=== PATIENT | male | born 1950 | race Caucasian/White ===

== ENCOUNTER 2017-06-26 12:54 | Observation (INO) | payer MEDICARE ==
[~2017-06-26] VITALS: Ht 165.1 cm; Wt 81.0 kg
[~2017-06-26 12:54] MED LIST: AMLO10 PO; ATEN-102 PO; CALTCHW4 PO; CARB6.5S5 EACH EAR; CHLO50TA PO; CYAN1000P IM; CYCL1PAK PO; D31000TA PO; DOCU50SY2 PO; FERR140T PO; GABA300C3 PO; MOBI7.5T PO; MS C30TA5 PO; OXYC5 PO; POTA-243 PO; PRED5TAB; PROC1TAB8 PO; ZOLP5TAB3 PO
[2017-06-26 13:02] VITALS: BP 173/89; PULSE 89; RESP 18; TEMP 98.5; O2SAT 96
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
[2017-06-26] MEDS ORDERED: SODIUM CHLORIDE 0.9% FLUSH 10 ML FLUSH IV FLUSH PRN ×2 (14:15→17:30)
[2017-06-26] MEDS ORDERED: ONDANSETRON HCL 4 MG/2 ML VIAL IVP ONE (14:15)
[2017-06-26] MEDS ORDERED: SODIUM CHLORIDE 0.9% FLUSH 5 ML FLUSH IV FLUSH PRN (14:15)
[2017-06-26] MEDS ORDERED: SODIUM CHLORID 0.9% 500 ML INJ 500 ML IV ONE (14:15)
[2017-06-26 14:23] LABS: AUTOMATED NEUTROPHIL # 8.7 TH/MM3 (1.8-7.7); BASOPHIL % 0.2 % (0.0-2.0); HEMO FLAGS DIFF FINAL; LYMPH % 7.6 % (9.0-44.0); LYMPHOCYTE # 0.7 TH/MM3 (1.0-4.8); MEAN CELL VOLUME 89.6 FL (80.0-100.0); MEAN CORPUSCULAR HGB CONC 34.6 % (32.0-36.0); MONO % 3.6 % (0.0-8.0); NEUT % 88.6 % (16.0-70.0); PLATELET COUNT 255 TH/MM3 (150-450); RED BLOOD COUNT 5.35 MIL/MM3 (4.50-5.90); RED CELL DISTRIBUTION WIDTH 15.1 % (11.6-17.2); WHITE BLOOD COUNT 9.8 TH/MM3 (4.0-11.0)
[2017-06-26 14:32] LABS: INTERNATIONAL NORMALIZED RATIO 1.2 RATIO; PROTHROMBIN TIME - PATIENT 13.9 SEC (9.8-11.6)
[2017-06-26 14:48] LABS: ANION GAP 7 MEQ/L (5-15); AST (GOT) 23 U/L (15-37); BICARBONATE 29.8 MEQ/L (21.0-32.0); BLOOD UREA NITROGEN 17 MG/DL (7-18); CHLORIDE 99 MEQ/L (98-107); GLOMERULAR FILTRATION RATE 52 ML/MIN (>89); POTASSIUM 3.6 MEQ/L (3.5-5.1); SODIUM (NA) 136 MEQ/L (136-145)
[2017-06-26 14:49] LABS: ALT (GPT) 31 U/L (12-78)
[2017-06-26 14:53] LABS: ALKALINE PHOSPHATASE 78 U/L (45-117); TOTAL BILIRUBIN ADULT 0.5 MG/DL (0.2-1.0)
[2017-06-26 14:54] LABS: CREATINE KINASE 81 U/L (39-308)
--- NOTE | 2017-06-26 14:54 | RADRPT ---
EXAM DATE/TIME: 06/26/2017 14:35 [facility] COMPARISON: No previous studies available for comparison. INDICATIONS : Nausea. Recent upper respiratory infection. MEDICAL HISTORY : Carcinoma, bone. Carcinoma, prostatic. SURGICAL HISTORY : Port placement. ENCOUNTER: Initial ACUITY: 1 day PAIN SCORE: 0/10 LOCATION: Bilateral chest FINDINGS: Single AP view of the chest. Right-sided IJ [id number] in place. Low lung volumes. Moderate cardia c silhouette enlargement. Minimal linear opacity at the lung bases indicating subsegmental atelectasi s or scarring. Mild blunting of costophrenic sulci. CONCLUSION: 1. Low lung volumes. 2. Mild by basilar atelectasis. 3. Enlarged cardiac silhouette. 4. Possible small pleural effusions. Salvador Herman MD on June 26, 2017 at 14:51 Board Certified Radiologist. This report was verified electronically.
[2017-06-26 15:38] VITALS: BP 159/59; PULSE 80; RESP 18; O2SAT 93
[2017-06-26] MEDS ORDERED: IOHEXOL 350 MG/ML 10 ML VIAL (for RAD DIAG) IVCONTRAST ONE (15:46)
--- NOTE | 2017-06-26 15:58 | RADRPT ---
EXAM DATE/TIME: 06/26/2017 15:16 [facility] COMPARISON: CT ABDOMEN & PELVIS W CONTRAST, January 30, 2012, 15:03. INDICATIONS : Abdomen pain. IV CONTRAST: 100 cc Omnipaque 350 (iohexol) IV ORAL CONTRAST: No oral contrast ingested. RADIATION DOSE: 6.87 CTDIvol (mGy) MEDICAL HISTORY : Carcinoma, prostate. Cardiovascular disease SURGICAL HISTORY : None. ENCOUNTER: Initial ACUITY: 1 day PAIN SCALE: 8/10 LOCATION: Bilateral abdomen. TECHNIQUE: Volumetric scanning of the abdomen and pelvis was performed. Using automated exposure control and ad justment of the mA and/or kV according to patient size, radiation dose was kept as low as reasonably achievable to obtain optimal diagnostic quality images. DICOM format image data is available electro nically for review and comparison. FINDINGS: There is bandlike atelectasis within the right middle lobe and right lower lobe. There is hepatic janak atosis. There are cysts in the liver which are stable. The splenic cyst is also suspected anteriorly, measuring 1.4 cm. There are bilateral renal cysts identified. This includes an exophytic cyst at the lower pole of the right kidney, simple in appearance a 3.5 cm on the left there are several cysts no francisco including a bilobed cyst with thin internal dividing septation measuring 10.1 x 6.5 cm. Urinary b ladder is unremarkable her prostatic calcifications are noted. There is diverticulosis without divert iculitis. The appendix is normal. Of concern are decompressed small bowel loops distally, with a lopez sition point seen in the midabdomen, and multiple dilated loops of small bowel with air-fluid levels are noted measuring up to 4.9 cm on axial image of bowel obstruction. Review of bone windows demonstr ates degenerative changes of the spine and sclerotic lesions of the bilateral iliac bones, sclerotic lesion of the right and left acetabulum, sacrum, and multiple lumbar vertebral and thoracic vertebral sclerotic lesions. There is diffuse thickening of the left adrenal gland is stable. Right adrenal gl and is normal. CONCLUSION: 1. Abnormal appearance of the small bowel which is dilated mid to proximal portions with distal deco mpression and transition point suspected in the mid abdomen. This is concerning for at least partial small bowel obstruction at this time. 2. Bilateral renal cysts. 3. Hepatic cysts. 4. Diverticulosis. 5. Atelectasis at the right lung base. 6. Diffuse sclerotic bone lesions characteristic of metastatic disease. Ashtuosh Espino MD on June 26, 2017 at 15:49 Board Certified Radiologist. This report was verified electronically.
[2017-06-26] MEDS ORDERED: WARF-23 PO (16:17)
[2017-06-26] MEDS ORDERED: DOCU100C15 PO (16:17)
[2017-06-26] MEDS ORDERED: ENZA40CA PO (16:17)
[2017-06-26] MEDS ORDERED: AMLO10TA2 PO (16:17)
[2017-06-26] MEDS ORDERED: HYDR-3801 PO (16:17)
[2017-06-26] MEDS ORDERED: VITA100064 PO (16:17)
[2017-06-26] MEDS ORDERED: GUAI600T11 PO (16:17)
[2017-06-26] MEDS ORDERED: ATEN100T7 PO (16:17)
[2017-06-26] MEDS ORDERED: FERR325T18 PO (16:17)
[2017-06-26] MEDS ORDERED: WARF-21 PO (16:17)
[2017-06-26] MEDS ORDERED: CALC600C3 PO (16:17)
[2017-06-26] MEDS ORDERED: POTA-163 PO (16:17)
[2017-06-26] MEDS ORDERED: SENNOSIDES 8.6 MG TAB PO PRN (17:30)
[2017-06-26] MEDS ORDERED: NALOXONE HCL 0.4 MG/ML AMP IV PUSH PRN (17:30)
[2017-06-26] MEDS ORDERED: MAGNESIUM HYDROXIDE SUSP 30 ML CUP PO PRN (17:30)
[2017-06-26] MEDS ORDERED: BISACODYL 10 MG SUPP RECTAL PRN (17:30)
[2017-06-26] MEDS ORDERED: LACTULOSE SYRUP 20 GM/30 ML CUP PO PRN (17:30)
[2017-06-26] MEDS ORDERED: ACETAMINOPHEN 325 MG TAB PO PRN (17:30)
[2017-06-26] MEDS ORDERED: ONDANSETRON HCL 4 MG/2 ML VIAL IVP PRN (17:30)
[2017-06-26] MEDS ORDERED: WARFARIN SOD 7.5 MG TAB PO SCH (17:46)
--- NOTE | 2017-06-26 17:52 | HHI.HP ---
[facility] Admission Diagnosis Diagnoses: Travel History International Travel<30 Days: No Contact w/Intl Traveler <30 Da: No Traveled to Known Affected Are: No History of Present Illness 67-year-old male with a past medical history significant for prostate cancer with bony metastasis, hypertension and A. fib currently on Coumadin presents to the emergency department complaining of nausea and vomiting since 10 AM. The patient states he had approximately 6 episodes of NBNB emesis and a "large" amount of diarrhea. He denies fever/chills. The patient also reports he recently received antibiotics from his primary care physician for an upper respiratory infection. He is not sure what type of antibiotic he is taking but that he "only received 5 pills." Lab work significant for creatinine of 1.36, no recent baseline for comparison. INR of 1.2. Patient reports he takes his warfarin daily. CT of the abdomen/pelvis shows a dilated small bowel with distal compression and a transition point concerning for partial small bowel obstruction. Review of Systems Denies fever or chills Denies blurry vision, otorrhea, rhinorrhea Denies sore throat and cough No chest pain, palpitations, shortness of breath Epigastric tenderness Positive emesis/diarrhea Denies muscle pain/weakness No rashes Past Family Social History Past Medical History Prostate cancer with metastasis to the bone, patient reports he did 11 months of chemotherapy which did not work and he is now on a daily medication Hypertension Atrial fibrillation Past Surgical History Cholecystectomy Reported Medications Reported Meds & Active Scripts Active Reported Warfarin 7.5 Mg Tab 7.5 Mg PO TTHSATSUN Warfarin 5 Mg Tab 5 Mg PO MWF Hydralazine (Hydralazine HCl) 100 Mg Tab 25 Mg PO Q8HR Take with meals Xtandi (Enzalutamide) 40 Mg Cap 120 Mg PO DAILY Calcium/Vitamin D (Calcium Carbonate-Cholecalciferol) 600-400 Mg-Unit Cap 1 Cap PO DAILY Mucus Relief ER (Guaifenesin) 600 Mg Tab 400 Mg PO TID PRN Amlodipine (Amlodipine Besylate) 10 Mg Tab 10 Mg PO DAILY Atenolol-Chlorthalidone 100-25 Mg Tab 1 Tab PO DAILY Docusate Sodium 100 Mg Cap 200 Mg PO HS PRN Potassium Chloride ER (Potassium Chloride) 20 Meq Tab 20 Meq PO BID Ferrous Sulfate 325 Mg (65 Mg Iron) Tablet 325 Mg PO BIDPC Vitamin D3 (Cholecalciferol) 1,000 Unit Tab 1,000 Units PO DAILY Allergies: Coded Allergies: No Known Allergies (Verified Allergy, Unknown, 06/26/17) Family History Father of an DC. Mother from CVA. Social History Quit smoking 2 weeks ago. Endorses 5 cigarettes per day 40 years. Denies alcohol or illicit drugs. Physical Exam Vital Signs Vital Signs Date Time Temp Pulse Resp B/P (MAP) Pulse Ox O2 Delivery O2 Flow Rate FiO2 06/26/17 15:38 80 18 159/59 (92) 93 Room Air 06/26/17 13:02 98.5 89 18 173/89 (117) 96 Physical Exam GENERAL: Elderly male sitting up in bed SKIN: No rashes, ecchymoses or lesions. Cool and dry. HEAD: Atraumatic. Normocephalic. No temporal or scalp tenderness. EYES: Pupils equal round and reactive. Extraocular motions intact. No scleral icterus. No injection or drainage. ENT: Nose without bleeding, purulent drainage or septal hematoma. Throat without erythema, tonsillar hypertrophy or exudate. Uvula midline. Airway patent. NECK: Trachea midline. No JVD or lymphadenopathy. Supple, nontender, no meningeal signs. CARDIOVASCULAR: Regular rate and rhythm without murmurs, gallops, or rubs. RESPIRATORY: Clear to auscultation. Breath sounds equal bilaterally. No wheezes , rales, or rhonchi. GASTROINTESTINAL: Epigastric region diffusely tender to palpation. Protuberant and distended. No palpable masses or hepatosplenomegaly. MUSCULOSKELETAL: Trace edema to the midshin. No joint tenderness, effusion, or edema noted. No calf tenderness. Negative Homans sign bilaterally. NEUROLOGICAL: Awake and alert. Cranial nerves II through XII intact. Motor and sensory grossly within normal limits. Normal speech. Laboratory Laboratory Tests Test 06/26/17 14:10 White Blood Count 9.8 Red Blood Count 5.35 Hemoglobin 16.6 Hematocrit 48.0 Mean Corpuscular Volume 89.6 Mean Corpuscular Hemoglobin 31.0 Mean Corpuscular Hemoglobin Concent 34.6 Red Cell Distribution Width 15.1 Platelet Count 255 Mean Platelet Volume 8.8 Neutrophils (%) (Auto) 88.6 Lymphocytes (%) (Auto) 7.6 Monocytes (%) (Auto) 3.6 Eosinophils (%) (Auto) 0.0 Basophils (%) (Auto) 0.2 Neutrophils # (Auto) 8.7 Lymphocytes # (Auto) 0.7 Monocytes # (Auto) 0.4 Eosinophils # (Auto) 0.0 Basophils # (Auto) 0.0 CBC Comment DIFF FINAL Differential Comment Prothrombin Time 13.9 Prothromb Time International Ratio 1.2 Blood Urea Nitrogen 17 Creatinine 1.36 Random Glucose 153 Total Protein 7.8 Albumin 3.4 Calcium Level 9.6 Alkaline Phosphatase 78 Aspartate Amino Transf (AST/SGOT) 23 Alanine Aminotransferase (ALT/SGPT) 31 Total Bilirubin 0.5 Sodium Level 136 Potassium Level 3.6 Chloride Level 99 Carbon Dioxide Level 29.8 Anion Gap 7 Estimat Glomerular Filtration Rate 52 Total Creatine Kinase 81 Troponin I 0.02 Lipase 82 Result Diagram: 06/26/17 1410 06/26/17 1410 Caprini VTE Risk Assessment Caprini VTE Risk Assessment: Mod/High Risk (score >= 2) Caprini Risk Assessment Model Point Value = 1 Point Value = 2 Point Value = 3 Point Value = 5 Age 41-60 Minor surgery BMI > 25 kg/m2 Swollen legs Varicose veins or History of unexplained or recurrent spontaneous Oral contraceptives or hormone replacement Sepsis (< 1 month) Serious lung disease, including pneumonia (< 1 month) Abnormal pulmonary function Acute myocardial infarction Congestive heart failure (< 1 month) History of inflammatory bowel disease Medical patient at bed rest Age 61-74 Arthroscopic surgery Major open surgery (> 45 min) Laparoscopic surgery (> 45 min) Malignancy Confined to bed (> 72 hours) Immobilizing plaster cast Central venous access Age >= 75 History of VTE Family history of VTE Factor V Leiden Prothrombin [id number] Lupus anticoagulant Anticardiolipin antibodies Elevated serum homocysteine Heparin-induced thrombocytopenia Other congenital or acquired thrombophilia Stroke (< 1 month) Elective arthroplasty Hip, pelvis, or leg fracture Acute spinal cord injury (< 1 month) Prophylaxis Regimen Total Risk Factor Score Risk Level Prophylaxis Regimen 0-1 Low Early ambulation 2 Moderate Order ONE of the following: *Sequential Compression Device (SCD) *Heparin 5000 units SQ BID 3-4 Higher Order ONE of the following medications: *Heparin 5000 units SQ TID *Enoxaparin/Lovenox 40 mg SQ daily (WT < 150 kg, CrCl > 30 mL/min) *Enoxaparin/Lovenox 30 mg SQ daily (WT < 150 kg, CrCl > 10-29 mL/min) *Enoxaparin/Lovenox 30 mg SQ BID (WT < 150 kg, CrCl > 30 mL/min) AND/OR *Sequential Compression Device (SCD) 5 or more Highest Order ONE of the following medications: *Heparin 5000 units SQ TID (Preferred with Epidurals) *Enoxaparin/Lovenox 40 mg SQ daily (WT < 150 kg, CrCl > 30 mL/min) *Enoxaparin/Lovenox 30 mg SQ daily (WT < 150 kg, CrCl > 10-29 mL/min) *Enoxaparin/Lovenox 30 mg SQ BID (WT < 150 kg, CrCl > 30 mL/min) AND *Sequential Compression Device (SCD) Assessment and Plan Assessment and Plan 67-year-old male with a past medical history significant for prostate cancer with bony metastasis, hypertension and atrial fibrillation presents to the emergency department with several episodes of nonbloody nonbilious emesis and diarrhea. CT of the abdomen and pelvis concerning for partial small bowel obstruction. 1. Small bowel obstruction Medical management Nothing by mouth except meds Emesis relieved with zofran If emesis persists, place NG tube IV fluid hydration 2. RICARDA Creatinine 1.36, no recent baseline for comparison IV fluids Trend BMP 3. Atrial fibrillation with subtherapeutic INR Per patient, he takes his Coumadin daily Continue Coumadin dosing, consult pharmacy Monitor [facility] 4. Hypertension Continue home amlodipine, hydralazine, tenoretic 5. Prostate cancer Continue daily Xtandi FEN NPO NS at 100 cc/hr Monitor electrolytes Heparin Lexie Barcenas MD Jun 26, 2017 17:52
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
[2017-06-26] MEDS: SODIUM CHLOR 0.9% 1000 ML INJ 1,000 ML IV SCH (18:53)
[2017-06-26] MEDS: SODIUM CHLORIDE 0.9% FLUSH 10 ML FLUSH IV FLUSH SCH (21:00)
[2017-06-26] MEDS ORDERED: hydrALAZINE HCL 100 MG TAB PO SCH (22:00)
[2017-06-26] MEDS: HEPARIN SODIUM - SQ 10,000 UNITS/ML VIAL SQ SCH (22:55)
[2017-06-26] MEDS: DOCUSATE SODIUM 50 MG/SENNA 8.6 MG TAB PO SCH (22:55)
[2017-06-26] MEDS: hydrALAZINE HCL 25 MG TAB PO SCH (22:55)
[2017-06-27 00:38] VITALS: BP 140/67; PULSE 75; RESP 18; TEMP 98; O2SAT 95
[2017-06-27] MEDS: SODIUM CHLOR 0.9% 1000 ML INJ 1,000 ML IV SCH (04:33)
[2017-06-27 04:50] VITALS: BP 133/60; PULSE 55; RESP 18; TEMP 98; O2SAT 90
[2017-06-27 05:58] LABS: AUTOMATED NEUTROPHIL # 5.9 TH/MM3 (1.8-7.7); BASOPHIL % 0.4 % (0.0-2.0); EOSINOPHIL # 0.2 TH/MM3 (0-0.4); HEMATOCRIT 43.8 % (39.0-51.0); HEMO FLAGS DIFF FINAL; LYMPH % 16.9 % (9.0-44.0); LYMPHOCYTE # 1.4 TH/MM3 (1.0-4.8); MEAN CELL VOLUME 89.9 FL (80.0-100.0); MEAN CORPUSCULAR HEMOGLOBIN 30.6 PG (27.0-34.0); MONO % 9.8 % (0.0-8.0); NEUT % 70.9 % (16.0-70.0); PLATELET COUNT 231 TH/MM3 (150-450); RED BLOOD COUNT 4.87 MIL/MM3 (4.50-5.90); RED CELL DISTRIBUTION WIDTH 15.2 % (11.6-17.2); WHITE BLOOD COUNT 8.4 TH/MM3 (4.0-11.0)
[2017-06-27] MEDS ORDERED: hydrALAZINE HCL 25 MG TAB PO SCH (06:00)
[2017-06-27] MEDS: HEPARIN SODIUM - SQ 10,000 UNITS/ML VIAL SQ SCH ×3 (06:16→20:56)
[2017-06-27] MEDS: hydrALAZINE HCL 25 MG TAB PO SCH ×3 (06:16→20:56)
[2017-06-27 06:21] LABS: INTERNATIONAL NORMALIZED RATIO 1.1 RATIO; PROTHROMBIN TIME - PATIENT 12.4 SEC (9.8-11.6)
[2017-06-27 06:25] LABS: BICARBONATE 28.4 MEQ/L (21.0-32.0)
[2017-06-27] MEDS ORDERED: DEXTROSE 50% IN WATER 50 ML VIAL(D50) ONE (07:43)
[2017-06-27] MEDS ORDERED: POTASSIUM BICARBONATE 25 MEQ EFFERVESCENT TAB PO ONE (08:00)
[2017-06-27 08:07] VITALS: BP 142/75; PULSE 82; RESP 21; TEMP 97.6; O2SAT 96
[2017-06-27] MEDS: DOCUSATE SODIUM 50 MG/SENNA 8.6 MG TAB PO SCH ×3 (08:36→20:55)
[2017-06-27] MEDS: SODIUM CHLORIDE 0.9% FLUSH 10 ML FLUSH IV FLUSH SCH ×2 (08:36→20:55)
[2017-06-27] MEDS: NS + KCL 20 MEQ INJ 1,000 ML IV SCH ×2 (08:42→17:49)
[2017-06-27 08:53] LABS: MAGNESIUM 2.3 MG/DL (1.5-2.5)
[2017-06-27] MEDS ORDERED: ATENOLOL PO SCH (09:00)
[2017-06-27] MEDS ORDERED: CHLORTHALIDONE PO SCH (09:00)
[2017-06-27] MEDS ORDERED: ENZALUTAMIDE 40 MG PO SCH (09:00)
--- NOTE | 2017-06-27 14:43 | HHI.PR ---
Subjective Remarks Patient feeling pressure in his abdomen No nausea or vomiting Still no gas or bowel movement Objective Vitals Vital Signs Date Time Temp Pulse Resp B/P (MAP) Pulse Ox O2 Delivery O2 Flow Rate FiO2 06/27/17 08:07 97.6 82 21 142/75 (97) 96 06/27/17 04:50 98.0 55 18 133/60 (84) 90 06/27/17 00:38 98.0 75 18 140/67 (91) 95 06/26/17 21:34 06/26/17 15:38 80 18 159/59 (92) 93 Room Air I/O 06/26/17 06/26/17 06/26/17 06/27/17 06/27/17 06/27/17 07:00 15:00 23:00 07:00 15:00 23:00 Intake Total 500 ml Balance 500 ml Intake IV Total 500 ml Result Diagram: 06/27/17 0401 06/27/17 0401 Objective Remarks GENERAL: This is a well-nourished, well-developed patient, in no apparent distress. SKIN: No rashes, warm and dry HEAD: Atraumatic. Normocephalic. EYES: Pupils equal round and reactive. Extraocular motions intact. No scleral icterus. ENT: Nose without bleeding, or drainage, Airway patent. NECK: Trachea midline. Supple CARDIOVASCULAR: Regular rate and rhythm without murmurs, gallops, or rubs. RESPIRATORY: Fair air entry bilaterally. No wheezes, rales, or rhonchi. GASTROINTESTINAL: Abdomen soft, tender to deep palpation, nondistended. Positive bowel sounds MUSCULOSKELETAL: Extremities without clubbing, cyanosis, or edema. Pedal pulses appreciated NEUROLOGICAL: Awake and alert. Moves all extremity. Normal speech.no focal neurological deficit A/P Assessment and Plan 06/27: Discussed with patient and his , they requested to drink some cough but I advised to continue rest until clinical signs of GI motility improvement A/P: 67-year-old male with a past medical history significant for prostate cancer with bony metastasis, hypertension and atrial fibrillation presents to the emergency department with several episodes of nonbloody nonbilious emesis and diarrhea. CT of the abdomen and pelvis concerning for partial small bowel obstruction. 1. Small bowel obstruction Medical management Nothing by mouth except meds Emesis relieved with zofran If emesis persists, place NG tube IV fluid hydration 2. RICARDA Creatinine 1.36, no recent baseline for comparison IV fluids Monitor BMP 3. Atrial fibrillation with subtherapeutic INR Per patient, he takes his Coumadin daily Continue Coumadin dosing, monitor INR 4. Hypertension Continue home amlodipine, hydralazine, tenoretic 5. Prostate cancer Continue daily Ru Kerns MD Jun 27, 2017 14:43
[2017-06-27] MEDS ORDERED: WARFARIN SOD 5 MG TAB PO SCH (16:00)
[2017-06-27] MEDS ORDERED: WARFARIN SOD 2.5 MG TAB PO ONE (16:00)
[2017-06-27] MEDS ORDERED: POTASSIUM CHLORIDE INJ 20 MEQ in SODIUM CHLOR 0.9% 1000 ML INJ 1,000 ML IV SCH (17:30)
--- NOTE | 2017-06-27 18:36 | EKG ---
Date Performed: 06/26/2017 Time Performed: 14:12:02 PTAGE: 67 years EKG: Sinus rhythm Poor R wave progression LEFT ANTERIOR FASCICULAR BLOCK VOLTAGE CRITERIA FOR LVH MINIMAL ST DEPRESSI ON ABNORMAL ECG PREVIOUS TRACING : 02/25/2015 14.53 DOCTOR: Storm Agosto Interpretating Date/Time 06/27/2017 18:35:36
[2017-06-27 19:26] VITALS: BP 186/89; PULSE 67; RESP 18; TEMP 98.1; O2SAT 94
[2017-06-27 23:42] VITALS: BP 169/75; PULSE 66; RESP 18; TEMP 97.6; O2SAT 94
[2017-06-28] MEDS: NS + KCL 20 MEQ INJ 1,000 ML IV SCH (03:46)
[2017-06-28 04:08] VITALS: BP 169/76; PULSE 64; RESP 18; TEMP 97.5; O2SAT 95
[2017-06-28 05:25] LABS: INTERNATIONAL NORMALIZED RATIO 1.4 RATIO; PROTHROMBIN TIME - PATIENT 15.4 SEC (9.8-11.6)
[2017-06-28] MEDS: hydrALAZINE HCL 25 MG TAB PO SCH (05:53)
[2017-06-28] MEDS: HEPARIN SODIUM - SQ 10,000 UNITS/ML VIAL SQ SCH (05:53)
[2017-06-28 07:54] VITALS: BP 173/79; PULSE 73; RESP 18; TEMP 98; O2SAT 94
[2017-06-28] MEDS: SODIUM CHLORIDE 0.9% FLUSH 10 ML FLUSH IV FLUSH SCH (07:57)
[2017-06-28] MEDS: DOCUSATE SODIUM 50 MG/SENNA 8.6 MG TAB PO SCH (07:57)
[2017-06-28 12:09] LABS: BICARBONATE 26.1 MEQ/L (21.0-32.0); POTASSIUM 3.6 MEQ/L (3.5-5.1)
[2017-06-28] MEDS ORDERED: Lactulose Liq PO (12:22)
[2017-06-28] MEDS ORDERED: BISA10R RECTAL (12:22)
[2017-06-28] MEDS ORDERED: DOCU100C15 PO (12:22)
--- NOTE | 2017-06-28 13:48 | HHI.PR ---
Subjective Remarks since earlier today he stated he had 3 bowel movements doing well no abdominal pain nausea or vomiting Objective Vitals Vital Signs Date Time Temp Pulse Resp B/P (MAP) Pulse Ox O2 Delivery O2 Flow Rate FiO2 06/28/17 07:54 98.0 73 18 173/79 (110) 94 06/28/17 04:08 97.5 64 18 169/76 (107) 95 06/27/17 23:42 97.6 66 18 169/75 (106) 94 06/27/17 19:26 98.1 67 18 186/89 (121) 94 Result Diagram: 06/27/17 0401 06/28/17 1106 Objective Remarks GENERAL: This is a well-nourished, well-developed patient, in no apparent distress. SKIN: No rashes, warm and dry HEAD: Atraumatic. Normocephalic. EYES: Pupils equal round and reactive. Extraocular motions intact. No scleral icterus. ENT: Nose without bleeding, or drainage, Airway patent. NECK: Trachea midline. Supple CARDIOVASCULAR: Regular rate and rhythm without murmurs, gallops, or rubs. RESPIRATORY: Fair air entry bilaterally. No wheezes, rales, or rhonchi. GASTROINTESTINAL: Abdomen soft, nontender to palpation, nondistended. Positive bowel sounds MUSCULOSKELETAL: Extremities without clubbing, cyanosis, or edema. Pedal pulses appreciated NEUROLOGICAL: Awake and alert. Moves all extremity. Normal speech.no focal neurological deficit A/P Assessment and Plan 06/27: Discussed with patient and his , they requested to drink some cough but I advised to continue rest until clinical signs of GI motility improvement 06/28: Patient had 3 bowel movements since yesterday no abdominal pain nausea or vomiting, he's ready to be discharged A/P: 67-year-old male with a past medical history significant for prostate cancer with bony metastasis, hypertension and atrial fibrillation presents to the emergency department with several episodes of nonbloody nonbilious emesis and diarrhea. CT of the abdomen and pelvis concerning for partial small bowel obstruction. 1. Small bowel obstruction Medical management Nothing by mouth except meds Emesis relieved with zofran If emesis persists, place NG tube IV fluid hydration 2. RICARDA Creatinine 1.36, no recent baseline for comparison IV fluids Monitor BMP 3. Atrial fibrillation with subtherapeutic INR Per patient, he takes his Coumadin daily Continue Coumadin dosing, monitor INR 4. Hypertension Continue home amlodipine, hydralazine, tenoretic 5. Prostate cancer Continue daily Xtandi Discharge Planning Discharge patient to home Condition on discharge: Improved Healthy heart Diet as tolerated Ad Marcella activity Rx written: Dulcolax suppository Follow-up with primary care physician in one week Ru Gayle MD Jun 28, 2017 13:48
[2017-06-28] MEDS ORDERED: hydrALAZINE HCL 50 MG TAB PO SCH (14:00)
== END 2017-06-28 13:08 | disposition home or self-care (01) ==
LOC: NEPE 12:54 → INTOOBSV 19:14 → NEDA 19:14 → NEPFCDU 20:41
PROVIDERS: ADMIT Hospitalist; ATTEND Hospitalist
DX: K56.600 Partial intestinal obstruction, unspecified as to cause (principal); N17.9 Acute kidney failure, unspecified; R79.1 Abnormal coagulation profile; I48.91 Unspecified atrial fibrillation; I10 Essential (primary) hypertension; C61 Malignant neoplasm of prostate; C79.51 Secondary malignant neoplasm of bone; R94.31 Abnormal electrocardiogram [ECG] [EKG]; R11.2 Nausea with vomiting, unspecified; K76.0 Fatty (change of) liver, not elsewhere classified; K57.90 Diverticulosis of intestine, part unspecified, without perforation or abscess without bleeding; N28.1 Cyst of kidney, acquired; K76.89 Other specified diseases of liver; F17.210 Nicotine dependence, cigarettes, uncomplicated; Z79.01 Long term (current) use of anticoagulants; Z79.899 Other long term (current) drug therapy; Z92.21 Personal history of antineoplastic chemotherapy
CPT/HCPCS: 71010; 74177; 80048; 80053; 82550; 82948; 83690; 83735; 84484; 85025; 85610; 93005; 96361; 96365; 96366; 96372; 96375; 99285; G0378; J1644; J2405; J3480; J7030; J7040; Q9967

== ENCOUNTER 2017-10-30 12:05 | Emergency (ER) | payer OTHER, MEDICARE ==
[~2017-10-30] VITALS: Ht 165.1 cm; Wt 78.0 kg
[~2017-10-30 12:05] MED LIST changes: -AMLO10 PO; +AMLO10TA2 PO; -ATEN-102 PO; +ATEN100T7 PO; +BISA10R RECTAL; +CALC600C3 PO; -CALTCHW4 PO; -CARB6.5S5 EACH EAR; -CHLO50TA PO; -CYAN1000P IM; -CYCL1PAK PO; -D31000TA PO; +DOCU100C15 PO; -DOCU50SY2 PO; +ENZA40CA PO; -FERR140T PO; +FERR325T18 PO; -GABA300C3 PO; +GUAI600T11 PO; +HYDR-3801 PO; +Lactulose Liq PO; -MOBI7.5T PO; -MS C30TA5 PO; -OXYC5 PO; +POTA-163 PO; -POTA-243 PO; -PRED5TAB; -PROC1TAB8 PO; +VITA100064 PO; +WARF-21 PO; +WARF-23 PO; -ZOLP5TAB3 PO
[2017-10-30 12:14] VITALS: BP 134/61; PULSE 65; RESP 18; TEMP 97.9; O2SAT 96
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
--- NOTE | 2017-10-30 14:14 | RADRPT ---
EXAM DATE/TIME: 10/30/2017 13:57 [facility] COMPARISON: No previous studies available for comparison. INDICATIONS : Right side chest and rib pain. MEDICAL HISTORY : Carcinoma, prostatic. Carcinoma, bone. Cardiovascular disease. SURGICAL HISTORY : Infusaport. ENCOUNTER: Initial ACUITY: 1 day PAIN SCORE: 4/10 LOCATION: Right anterior ribs. FINDINGS: Multiple views of the right ribs were performed. There is no evidence of displaced fracture. There appears be an old healed fracture deformity at the right rib. No destructive lesions or areas of acut e periosteal thickening are seen. Expiratory view of the chest is negative for pneumothorax. The me diastinal structures are midline. There is a right-sided [id number] in place. Spurs are seen in th e thoracic spine. The heart size is enlarged. The lungs are clear. CONCLUSION: No acute rib fracture is seen. Manolo Woodruff MD on October 30, 2017 at 14:09 Board Certified Radiologist. This report was verified electronically.
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
== END 2017-10-30 16:06 | disposition home or self-care (01) ==
LOC: NEPD 12:05
DX: S20.211A Contusion of right front wall of thorax, initial encounter (principal); R51 Headache; I10 Essential (primary) hypertension; F17.210 Nicotine dependence, cigarettes, uncomplicated; V43.52XA Car driver injured in collision with other type car in traffic accident, initial encounter; Z79.899 Other long term (current) drug therapy
CPT/HCPCS: 70450; 71101; 99284

== ENCOUNTER 2018-01-05 10:34 | Inpatient (IN) | payer OTHER, MEDICARE ==
[2018-01-05] VITALS (12 sets, daily range): BP systolic 102–146; BP diastolic 57–93; PULSE 88–107; RESP 16–20; TEMP 97.6–98.7; O2SAT 95–99
[~2018-01-05] VITALS: Ht 165.1 cm; Wt 78.0 kg
[2018-01-05] MEDS ORDERED: PANTOPRAZOLE INJ 80 MG in SODIUM CHLORIDE 0.9% INJ 35 ML IV ONE (11:42)
[2018-01-05] MEDS ORDERED: PANTOPRAZOLE INJ 80 MG in SODIUM CHLORIDE 0.9% INJ 100 ML IV SCH (11:42)
[2018-01-05] MEDS ORDERED: MORPHINE SULFATE 2 MG/ML SYRINGE IV PUSH ONE ×2 (11:45→13:45)
[2018-01-05] MEDS ORDERED: SODIUM CHLORID 0.9% 500 ML INJ 500 ML IV ONE (11:45)
[2018-01-05] MEDS ORDERED: ONDANSETRON ODT 4 MG TAB PO ONE (11:45)
[2018-01-05] MEDS ORDERED: SODIUM CHLORIDE 0.9% FLUSH 10 ML FLUSH IVF PRN (11:45)
[2018-01-05] MEDS ORDERED: WARF-23 PO (11:46)
[2018-01-05] MEDS ORDERED: PRED5TAB PO (11:46)
[2018-01-05] MEDS ORDERED: DICL1GEL7 TOPICAL (11:46)
[2018-01-05] MEDS ORDERED: GABA300C5 PO (11:46)
[2018-01-05] MEDS ORDERED: REFR0.5D9 EACH EYE (11:46)
[2018-01-05] MEDS ORDERED: HYDR-3799 PO (11:46)
[2018-01-05] MEDS ORDERED: CYAN1000P IM (11:46)
[2018-01-05] MEDS ORDERED: ATEN50TA7 PO (11:46)
--- NOTE | 2018-01-05 11:53 | PD ---
HPI Chief Complaint: Dizziness Time Seen by Provider: 11:33 Travel History International Travel<30 days: No Contact w/Intl Traveler<30days: No Traveled to known affect area: No History of Present Illness HPI Patient comes to the emergency department complaining of dizziness, weakness, bloody stools, and right femur pain that began yesterday. Patient states that anytime he goes to stand up he becomes dizzy. Patient's reports that he fell causing the pain in his right leg. Describes pain as aching throughout his right thigh without radiation. Pain is worse with certain movement, standing, or palpation. Denies anything making it better. Patient reports some blood in stool since yesterday has had some vomiting as well that was nonbloody nonbilious. Denies any fevers, chest pain, shortness of breath, head injury, loss of consciousness, or headaches. Patient is on Coumadin well and has a history of prostate and bone cancer. Denies anything making symptoms better. PFSH Past Medical History Blood Disorders: No Heart Rhythm Problems: No Cancer: Yes (prostate and bone) Cardiovascular Problems: Yes Chemotherapy: Yes (had 13 months of chemo, ended months ago, going to get injections) Chest Pain: No Congestive Heart Failure: No Diabetes: No Endocrine: No Gastrointestinal Disorders: Yes GERD: No Genitourinary: No Hepatitis: No Hiatal Hernia: No Hypertension: Yes Immune Disorder: No Medical other: Yes (blood clots) Musculoskeletal: No Neurologic: No Psychiatric: No Respiratory: No Thyroid Disease: No Ulcer: Yes Past Surgical History Abdominal Surgery: Yes (SHRAPNEL REMOVAL) Cardiac Surgery: No Ear Surgery: No Endocrine Surgery: No Eye Surgery: No Genitourinary Surgery: No Gynecologic Surgery: No Oral Surgery: No Pacemaker: No Thoracic Surgery: No Other Surgery: Yes (NUMEROUS SURGERIES TO RIGHT ARM, LEFT ARM, AND RIGHT LEG, SHRAPNEL REMOVAL) Social History Alcohol Use: Yes (occasional) Tobacco Use: Yes (6 or less) Substance Use: No Allergies-Medications (Allergen,Severity, Reaction): Coded Allergies: No Known Allergies (Verified Allergy, Unknown, 01/05/18) Reported Meds & Prescriptions Reported Meds & Active Scripts Active Reported Refresh Plus Unit-Dose 0.5% Opth (Carboxymethylcellulose Sodium 0.5% Opth) 0.5% Drops 1 Drop EACH EYE BID PRN Cyanocobalamin Inj (Cyanocobalamin) 1,000 Mcg/Ml Inj 1,000 Mcg IM MONTHLY Gabapentin 300 Mg Cap 600 Mg PO BID Diclofenac Topical 1% Gel 1 Applic TOPICAL BID Prednisone 5 Mg Tab 5 Mg PO BID Warfarin 5 Mg Tab 7.5 Mg PO TUESDAY Take 1&1/2 tablets (7.5mg) daily on Mondays Hydralazine HCl 25 Mg Tablet 25 Mg PO Q8HR Atenolol-Chlorthalidone 50-25 (Atenolol/Chlorthalidone) 50 Mg-25 Mg Tablet 0.5 Tab PO BID Warfarin 5 Mg Tab 5 Mg PO SUTUWETHFRSA Take 1 tablet (5mg) daily on Tuesday,Tuesday,Tuesday,,Tuesday and Tuesday Xtandi (Enzalutamide) 40 Mg Cap 160 Mg PO DAILY Calcium/Vitamin D (Calcium Carbonate-Cholecalciferol) 600-400 Mg-Unit Cap 1 Cap PO DAILY Amlodipine (Amlodipine Besylate) 10 Mg Tab 10 Mg PO DAILY Potassium Chloride ER (Potassium Chloride) 20 Meq Tab 40 Meq PO BID Ferrous Sulfate 325 Mg (65 Mg Iron) Tablet 325 Mg PO BIDPC Vitamin D3 (Cholecalciferol) 1,000 Unit Tab 1,000 Units PO DAILY Review of Systems Except as stated in HPI: all other systems reviewed are Neg Physical Exam Narrative GENERAL: Well-developed, overly nourished, in no acute distress, and non-ill appearing. SKIN: Focused skin assessment warm and dry. HEAD: Atraumatic. Normocephalic. EYES: Pupils equal and round. EOMI. No scleral icterus. No injection or drainage. ENT: No nasal bleeding or discharge. Mucous membranes pink and moist. NECK: Trachea midline. Supple. No nuclear rigidity. CARDIOVASCULAR: Regular rate and rhythm. No murmur appreciated. RESPIRATORY: No accessory muscle use. No respiratory distress. Clear to auscultation. Breath sounds equal bilaterally. GASTROINTESTINAL: Abdomen soft, nondistended, and no guarding. Hepatic and splenic margins not palpable. Normal bowel sounds x4. No pulsatile mass. Patient reports tenderness throughout. MUSCULOSKELETAL: No obvious deformities. No clubbing. No cyanosis. No edema. Full range of motion. Patient has full range of motion with passive flexion, extension, abduction, and abduction bilateral hips. Patient reports pain in his right thigh with certain passive movement of his right hip. NEUROLOGICAL: Awake and alert. No obvious cranial nerve deficits. Motor grossly within normal limits. Normal speech. PSYCHIATRIC: Appropriate mood and affect; insight and judgment normal. Data Data Last Documented VS Vital Signs Date Time Temp Pulse Resp B/P (MAP) Pulse Ox O2 Delivery O2 Flow Rate FiO2 01/05/18 13:43 93 18 146/65 (92) 96 Room Air 01/05/18 11:17 97.8 Orders Orders Complete Blood Count With Diff (01/05/18 11:42) Comprehensive Metabolic Panel (01/05/18 11:42) Lipase (01/05/18 11:42) Prothrombin Time / Inr (Pt) (01/05/18 11:42) Act Partial Throm Time (Ptt) (01/05/18 11:42) Type And Screen (01/05/18 11:42) Chest, Single Ap (01/05/18 11:42) Ecg Monitoring (01/05/18 11:42) Iv Access Insert/Monitor (01/05/18 11:42) Oximetry (01/05/18 11:42) Sodium Chloride 0.9% Flush (Ns Flush) (01/05/18 11:45) Sodium Chloride 0.9... W/Pantoprazole In (01/05/18 11:42) Sodium Chloride 0.9... W/Pantoprazole In (01/05/18 11:42) Ondansetron Odt (Zofran Odt) (01/05/18 11:45) Morphine Inj (Morphine Inj) (01/05/18 11:45) Sodium Chlorid 0.9% 500 Ml Inj (Ns 500 M (01/05/18 11:45) Femur (Ap & Lat/2vws) (01/05/18 ) Ct Brain W/O Iv Contrast(Rout) (01/05/18 ) Electrocardiogram (01/05/18 ) Morphine Inj (Morphine Inj) (01/05/18 12:00) Ct Abd/Pel W/O Iv Contrast (01/05/18 ) Morphine Inj (Morphine Inj) (01/05/18 13:45) Morphine Inj (Morphine Inj) (01/05/18 14:00) Fresh Frozen Plasma (Ffp) (01/05/18 14:00) Blood Product Administration (01/05/18 14:00) Labs Laboratory Tests Test 01/05/18 11:30 White Blood Count 8.9 TH/MM3 Red Blood Count 3.55 MIL/MM3 Hemoglobin 11.1 GM/DL Hematocrit 32.7 % Mean Corpuscular Volume 92.1 FL Mean Corpuscular Hemoglobin 31.1 PG Mean Corpuscular Hemoglobin Concent 33.8 % Red Cell Distribution Width 15.7 % Platelet Count 258 TH/MM3 Mean Platelet Volume 8.4 FL Neutrophils (%) (Auto) 81.8 % Lymphocytes (%) (Auto) 10.4 % Monocytes (%) (Auto) 5.8 % Eosinophils (%) (Auto) 1.5 % Basophils (%) (Auto) 0.5 % Neutrophils # (Auto) 7.3 TH/MM3 Lymphocytes # (Auto) 0.9 TH/MM3 Monocytes # (Auto) 0.5 TH/MM3 Eosinophils # (Auto) 0.1 TH/MM3 Basophils # (Auto) 0.0 TH/MM3 CBC Comment DIFF FINAL Differential Comment Prothrombin Time 33.4 SEC Prothromb Time International Ratio 3.3 RATIO Activated Partial Thromboplast Time 33.6 SEC Blood Urea Nitrogen 30 MG/DL Creatinine 1.47 MG/DL Random Glucose 142 MG/DL Total Protein 5.8 GM/DL Albumin 2.8 GM/DL Calcium Level 9.1 MG/DL Alkaline Phosphatase 67 U/L Aspartate Amino Transf (AST/SGOT) 24 U/L Alanine Aminotransferase (ALT/SGPT) 24 U/L Total Bilirubin 0.4 MG/DL Sodium Level 140 MEQ/L Potassium Level 4.8 MEQ/L Chloride Level 106 MEQ/L Carbon Dioxide Level 25.3 MEQ/L Anion Gap 9 MEQ/L Estimat Glomerular Filtration Rate 47 ML/MIN Lipase 79 U/L [facility] Medical Decision Making Medical Screen Exam Complete: Yes Emergency Medical Condition: Yes Interpretation(s) EKG reviewed by Dr. Beckham sinus rhythm with ventricular rate of 96. No STEMI. Differential Diagnosis GI bleed, anemia, fracture, contusion, intracranial hemorrhage, vertigo, metabolic disturbance, elevated INR Narrative Course Patient was seen and examined. IV was established patient placed on continuous cardiac monitoring. Initial laboratory and radiological studies were ordered. Patient was given IV fluids, IV morphine, Zofran ODT. Upon reevaluation patient 's now states that the right leg pain has been ongoing for several weeks and is not new. Discussed all findings and plan of care with patient and family. Patient is agreeable for admission. All questions were answered. Discussed patient with Dr. Beckham, who is in agreement with plan of care disposition. Discussed patient with hospitalist is agreeable to admit the patient. Patient remained stable throughout ED course. HemaPrompt Point of Care Internal Pos. & Neg. Controls: Passed Fecal Specimen Occult Blood: Positive Comment Verbal consent was obtained. Digital rectal exam was performed. Stool specimen was melanotic in color applied and test interpreted between 1 and 3 minutes of application and the result was positive. Internal Controls: Both positive and negative controls were validated. firefighting equipment specialist Kareem was present during this exam. Physician Communication Physician Communication [id number] discussed patient with , who is agreeable to admit the patient. Diagnosis Primary Impression: GI bleed Qualified Codes: K92.2 - Gastrointestinal hemorrhage, unspecified Condition: Stable Albin Smith January 05, 2018 11:53
[2018-01-05] MEDS ORDERED: MORPHINE SULFATE 4 MG/ML INJ IV PUSH ONE ×2 (12:00→14:00)
[2018-01-05 12:14] LABS: AUTOMATED NEUTROPHIL # 7.3 TH/MM3 (1.8-7.7); BASOPHIL % 0.5 % (0.0-2.0); EOSINOPHIL # 0.1 TH/MM3 (0-0.4); EOSINOPHIL % 1.5 % (0.0-4.0); HEMATOCRIT 32.7 % (39.0-51.0); HEMOGLOBIN 11.1 GM/DL (13.0-17.0); LYMPH % 10.4 % (9.0-44.0); LYMPHOCYTE # 0.9 TH/MM3 (1.0-4.8); MEAN CELL VOLUME 92.1 FL (80.0-100.0); MEAN CORPUSCULAR HEMOGLOBIN 31.1 PG (27.0-34.0); MEAN CORPUSCULAR HGB CONC 33.8 % (32.0-36.0); MEAN PLATELET VOLUME 8.4 FL (7.0-11.0); MONO % 5.8 % (0.0-8.0); MONOCYTE # 0.5 TH/MM3 (0-0.9); NEUT % 81.8 % (16.0-70.0); PLATELET COUNT 258 TH/MM3 (150-450); RED BLOOD COUNT 3.55 MIL/MM3 (4.50-5.90); RED CELL DISTRIBUTION WIDTH 15.7 % (11.6-17.2); WHITE BLOOD COUNT 8.9 TH/MM3 (4.0-11.0)
--- NOTE | 2018-01-05 12:19 | RADRPT ---
EXAM DATE: 01/05/2018 12:15 PM EDT AGE/SEX: 67 years / Male INDICATIONS: Pain. CLINICAL DATA: This is the patient's initial encounter. Patient reports that signs and symptoms have been present for 2 days and indicates a pain score of 10/10. MEDICAL/SURGICAL HISTORY: . Carcinoma, prostatic. Carcinoma, bone. Cardiovascular disease. . [place] COMPARISON: No prior [place] exams available for comparison. FINDINGS: Bony structures are intact and in normal alignment. Osseous density is normal. Soft tissues are unre markable. Small metallic densities seen posteriorly and medially in the soft tissues. Vascular calci fications. Seen. CONCLUSION: No acute bony abnormality. Electronically signed by: Jagjit Morales MD 01/05/2018 12:18 PM EDT
--- NOTE | 2018-01-05 12:23 | RADRPT ---
EXAM DATE: 01/05/2018 12:18 PM EDT AGE/SEX: 67 years / Male INDICATIONS: Vomiting. CLINICAL DATA: This is the patient's initial encounter. Patient reports that signs and symptoms have been present for 3 days and indicates a pain score of 10/10. MEDICAL/SURGICAL HISTORY: . Carcinoma, prostatic. Carcinoma, bone. Cardiovascular disease. . P ort placement. COMPARISON: No prior exams available for comparison. FINDINGS: [id number] tip is in the right atrium. Elevated right hemidiaphragm. Minimal basilar atelectasis. Heart size enlarged. No pneumothorax. Remote right fourth rib fracture. CONCLUSION: Minimal basilar atelectasis or scarring. Cardiomegaly. [id number]-Tnni in right atrium. Electronically signed by: Nomi Briggs MD 01/05/2018 12:22 PM EDT
[2018-01-05 12:24] LABS: INTERNATIONAL NORMALIZED RATIO 3.3 RATIO; PROTHROMBIN TIME - PATIENT 33.4 SEC (9.8-11.6)
[2018-01-05 12:36] LABS: ALBUMIN 2.8 GM/DL (3.4-5.0); ALKALINE PHOSPHATASE 67 U/L (45-117); ALT (GPT) 24 U/L (12-78); AST (GOT) 24 U/L (15-37); BICARBONATE 25.3 MEQ/L (21.0-32.0); BLOOD UREA NITROGEN 30 MG/DL (7-18); CALCIUM 9.1 MG/DL (8.5-10.1); CHLORIDE 106 MEQ/L (98-107); CREATININE 1.47 MG/DL (0.60-1.30); GLOMERULAR FILTRATION RATE 47 ML/MIN (>89); GLUCOSE,RANDOM 142 MG/DL (74-106); SODIUM (NA) 140 MEQ/L (136-145); TOTAL BILIRUBIN ADULT 0.4 MG/DL (0.2-1.0); TOTAL PROTEIN 5.8 GM/DL (6.4-8.2)
--- NOTE | 2018-01-05 13:41 | RADRPT ---
EXAM DATE: 01/05/2018 1:38 PM EDT AGE/SEX: 67 years / Male INDICATIONS: Dizziness. Nausea and headache. CLINICAL DATA: This is the patient's initial encounter. Patient reports that signs and symptoms have been present for 1 day and indicates a pain score of 10/10. MEDICAL/SURGICAL HISTORY: Hypertension. Carcinoma, prostatic. Carcinoma, bone. None. RADIATION DOSE: 65.23 CTDI (mGy) COMPARISON: . TECHNIQUE: CT of the head without contrast. Using automated exposure control and adjustment of the mA and/or kV according to patient size, radiation dose was kept as low as reasonably achievable to ob tain optimal diagnostic quality images. FINDINGS: Cerebrum: The ventricles are normal for age. No evidence of midline shift, mass lesion, hemorrhage or acute infarction. No extraaxial fluid collections are seen. Posterior Fossa: The cerebellum and brainstem are intact. The 4th ventricle is midline. The cerebe llopontine angle is unremarkable. Extracranial: The visualized portion of the orbits is intact. Skull: The calvaria is intact. No evidence of skull fracture. CONCLUSION: 1. Stable unremarkable noncontrast head CT. Electronically signed by: Bon Kelly MD 01/05/2018 1:40 PM EDT
--- NOTE | 2018-01-05 13:51 | RADRPT ---
EXAM DATE: 01/05/2018 1:40 PM EDT AGE/SEX: 67 years / Male INDICATIONS: Nausea. Abdominal pain. CLINICAL DATA: This is the patient's initial encounter. Patient reports that signs and symptoms have been present for 1 day and indicates a pain score of 10/10. MEDICAL/SURGICAL HISTORY: Hypertension. Carcinoma, prostatic. Carcinoma, bone. None. RADIATION DOSE: 9.93 CTDI (mGy) COMPARISON: [facility], CT ABDOMEN & PELVIS W/O CONTRAST, 10/23/2010. . TECHNIQUE: Multiple contiguous axial images were obtained through the abdomen. Images were obtained using multiple row detector helical technique. Using dose reduction techniques, radiation dose was ke pt as low as reasonably achievable to obtain optimal diagnostic quality images. FINDINGS: Lower Lungs: The visualized lower lungs are clear. Coronary artery calcifications are present. Liver: The liver has a homogeneous density with a cyst again noted in the right lobe. There is no dil ation of the biliary tree. Spleen: Homogeneous density without enlargement. Pancreas: Unremarkable without mass or calcification. Kidneys: Right kidney remains normal in size and shape with simple cyst again noted. There is a tiny less than 1 mm nonobstructing right renal calculus in the upper pole. The left kidney demonstrates c ortical atrophy and areas of apparent scarring. There are multiple parapelvic and cortical cysts with no evidence of obstruction. There are small calcifications. Adrenal Glands: The right adrenal gland remains unremarkable. The left remains diffusely thickened and of low density without change. This is a benign finding. Aorta: The aorta and proximal iliac vessels are grossly unremarkable without aneurysmal dilation. Bowel/Mesentery: No oral contrast was given limiting the sensitivity of the exam. There are multiple loops of nondilated air-containing small bowel with several small air-fluid levels. There is no free air or fluid. Abdominal Wall: Intact. Retroperitoneum: No evidence of adenopathy in the retrocrural, para-aortic, or deep pelvic regions. Bladder: Contours are smooth. Reproductive Organs: No abnormal masses or calcifications seen. Inguinal: The inguinal region is unremarkable without evidence of adenopathy. Bony Structures: Multiple scattered sclerotic lesions are now noted greatest in the iliac wings and pelvis. These involve multiple vertebral bodies as well. CONCLUSION: 1. Multiple new sclerotic osseous lesions metastatic most characteristic of disease. 2. The left kidney is now mildly atrophic with cortical scarring and multiple benign cysts. There i s a tiny less than 1 mm nonobstructing right renal calculus. 3. Nonobstructive, nonspecific bowel gas pattern which may represent a mild ileus and/or gastroenter itis.. Electronically signed by: Bon Kelly MD 01/05/2018 1:50 PM EDT
--- NOTE | 2018-01-05 14:52 | EKG ---
Date Performed: 01/05/2018 Time Performed: 11:33:28 PTAGE: 67 years EKG: Sinus rhythm LEFT ANTERIOR FASCICULAR BLOCK NONSPECIFIC T-WAVE ABNORMALITY ABNORMAL ECG Since the PREVIOUS TRACING , no significant change noted PREVIOUS TRACIN06/26/2017 DOCTOR: Storm Agosto Interpretating Date/Time 01/05/2018 14:47:57
--- NOTE | 2018-01-05 15:29 | PD ---
Data Data Last Documented VS Vital Signs Date Time Temp Pulse Resp B/P (MAP) Pulse Ox O2 Delivery O2 Flow Rate FiO2 01/05/18 13:43 93 18 146/65 (92) 96 Room Air 01/05/18 11:17 97.8 Orders Orders Complete Blood Count With Diff (01/05/18 11:42) Comprehensive Metabolic Panel (01/05/18 11:42) Lipase (01/05/18 11:42) Prothrombin Time / Inr (Pt) (01/05/18 11:42) Act Partial Throm Time (Ptt) (01/05/18 11:42) Type And Screen (01/05/18 11:42) Chest, Single Ap (01/05/18 11:42) Ecg Monitoring (01/05/18 11:42) Iv Access Insert/Monitor (01/05/18 11:42) Oximetry (01/05/18 11:42) Sodium Chloride 0.9% Flush (Ns Flush) (01/05/18 11:45) Sodium Chloride 0.9... W/Pantoprazole In (01/05/18 11:42) Sodium Chloride 0.9... W/Pantoprazole In (01/05/18 11:42) Ondansetron Odt (Zofran Odt) (01/05/18 11:45) Morphine Inj (Morphine Inj) (01/05/18 11:45) Sodium Chlorid 0.9% 500 Ml Inj (Ns 500 M (01/05/18 11:45) Femur (Ap & Lat/2vws) (01/05/18 ) Ct Brain W/O Iv Contrast(Rout) (01/05/18 ) Electrocardiogram (01/05/18 ) Morphine Inj (Morphine Inj) (01/05/18 12:00) Ct Abd/Pel W/O Iv Contrast (01/05/18 ) Morphine Inj (Morphine Inj) (01/05/18 13:45) Morphine Inj (Morphine Inj) (01/05/18 14:00) Fresh Frozen Plasma (Ffp) (01/05/18 14:00) Blood Product Administration (01/05/18 14:00) Admit Order (Ed Use Only) (01/05/18 ) [facility] / Telemetry PARUL.Q8H (01/05/18 14:56) Vital Signs (Adult) Q4H (01/05/18 14:56) Activity Bed Rest (01/05/18 14:56) Notify Dr: Other (01/05/18 14:56) Labs Laboratory Tests Test 01/05/18 11:30 White Blood Count 8.9 TH/MM3 Red Blood Count 3.55 MIL/MM3 Hemoglobin 11.1 GM/DL Hematocrit 32.7 % Mean Corpuscular Volume 92.1 FL Mean Corpuscular Hemoglobin 31.1 PG Mean Corpuscular Hemoglobin Concent 33.8 % Red Cell Distribution Width 15.7 % Platelet Count 258 TH/MM3 Mean Platelet Volume 8.4 FL Neutrophils (%) (Auto) 81.8 % Lymphocytes (%) (Auto) 10.4 % Monocytes (%) (Auto) 5.8 % Eosinophils (%) (Auto) 1.5 % Basophils (%) (Auto) 0.5 % Neutrophils # (Auto) 7.3 TH/MM3 Lymphocytes # (Auto) 0.9 TH/MM3 Monocytes # (Auto) 0.5 TH/MM3 Eosinophils # (Auto) 0.1 TH/MM3 Basophils # (Auto) 0.0 TH/MM3 CBC Comment DIFF FINAL Differential Comment Prothrombin Time 33.4 SEC Prothromb Time International Ratio 3.3 RATIO Activated Partial Thromboplast Time 33.6 SEC Blood Urea Nitrogen 30 MG/DL Creatinine 1.47 MG/DL Random Glucose 142 MG/DL Total Protein 5.8 GM/DL Albumin 2.8 GM/DL Calcium Level 9.1 MG/DL Alkaline Phosphatase 67 U/L Aspartate Amino Transf (AST/SGOT) 24 U/L Alanine Aminotransferase (ALT/SGPT) 24 U/L Total Bilirubin 0.4 MG/DL Sodium Level 140 MEQ/L Potassium Level 4.8 MEQ/L Chloride Level 106 MEQ/L Carbon Dioxide Level 25.3 MEQ/L Anion Gap 9 MEQ/L Estimat Glomerular Filtration Rate 47 ML/MIN Lipase 79 U/L MDM Supervised Visit with ESTEVAN: Yes Narrative Course I, Dr. Beckham, have reviewed the advance practice practitioner's documentation and am in agreement, met with the patient face to face, made the diagnosis, and the medical decision making was done by me. *My assessment and Findings: Complex patient requiring full admission status. He has GI bleed and is anticoagulated with Coumadin with an INR of 3.3. He was given IV Protonix and IV FFP and vitamin K. CT reveals bony metastasis but this is a known finding. He also has significant renal insufficiency. Diagnosis Primary Impression: GI bleed Qualified Codes: K92.2 - Gastrointestinal hemorrhage, unspecified Additional Impressions: Anticoagulated on Coumadin Renal failure (ARF), acute on chronic Qualified Codes: N17.9 - Acute kidney failure, unspecified; N18.9 - Chronic kidney disease, unspecified Admitting Information Admitting Physician Requests: Admit Condition: Stable Myles Beckham MD January 05, 2018 15:29
--- NOTE | 2018-01-05 15:51 | HHI.HP ---
[facility] Primary Care Physician [facility] Admission Diagnosis GI bleed Diagnoses: (1) GI bleed Diagnosis: Principal Chief Complaint: rectal bleed Travel History International Travel<30 Days: No Contact w/Intl Traveler <30 Da: No Traveled to Known Affected Are: No History of Present Illness patient is a 67 y/o male with history of prostate cancer, hypertension, a-fib who presented to ER with rectal bleed. he says that when he went to bathroom last night he passed a large amount of fresh blood. he had two more episodes of rectal bleed since then. he says that he was feeling dizzy and had some lower abdominal pain along with rectal bleed.he denies any chest pain, sob, nausea or vomiting. he's on coumadin therapy. he says that he had a colonoscopy about two years ago.he's also complaining of pain to the right lower extremity which he relates to bone metastasis. Review of Systems Constitutional: COMPLAINS OF: Dizziness, DENIES: Fever, Weight loss, Chills, Night Sweats Eyes: DENIES: Blurred vision, Diplopia, Vision loss, Double Vision Ears, nose, mouth, throat: DENIES: Tinnitus, Vertigo, Throat pain, Epistaxis Respiratory: DENIES: Apneas, Cough, Snoring, Wheezing, Hemoptysis, Sputum production, Shortness of breath Cardiovascular: DENIES: Chest pain, Palpitations, Syncope, Dyspnea on Exertion , PND, Lower Extremity Edema, Orthopnea, Claudication Gastrointestinal: COMPLAINS OF: Abdominal pain, Bloody stools, DENIES: Black stools, Constipation, Diarrhea, Nausea, Vomiting, Difficulty Swallowing, Anorexia Genitourinary: DENIES: Urinary frequency, Urgency, Hematuria, Dysuria Musculoskeletal: COMPLAINS OF: Joint pain, DENIES: Muscle aches, Stiffness, Joint Swelling Integumentary: DENIES: Rash Neurologic: DENIES: Abnormal gait, Headache, Localized weakness, Paresthesias, Seizures, Speech Problems, Tremor, Poor Balance Psychiatric: DENIES: Anxiety, Confusion, Mood changes, Depression, Hallucinations, Agitation, Suicidal Ideation, Homicidal Ideation, Delusions Past Family Social History Past Medical History prostate cancer/ hypertension/ a-fib per medical record. Past Surgical History leg/ shoulder/abdominal surgeries. Reported Medications Refresh Plus Unit-Dose 0.5% Opth (Carboxymethylcellulose Sodium 0.5% Opth) 0.5% Drops 1 Drop EACH EYE BID PRN Cyanocobalamin Inj (Cyanocobalamin) 1,000 Mcg/Ml Inj 1,000 Mcg IM MONTHLY Gabapentin 300 Mg Cap 600 Mg PO BID Diclofenac Topical 1% Gel 1 Applic TOPICAL BID Prednisone 5 Mg Tab 5 Mg PO BID Warfarin 5 Mg Tab 7.5 Mg PO TUESDAY Take 1&1/2 tablets (7.5mg) daily on Mondays Hydralazine HCl 25 Mg Tablet 25 Mg PO Q8HR Atenolol-Chlorthalidone 50-25 (Atenolol/Chlorthalidone) 50 Mg-25 Mg Tablet 0.5 Tab PO BID Warfarin 5 Mg Tab 5 Mg PO SUTUWETHFRSA Take 1 tablet (5mg) daily on Tuesday,Tuesday,Tuesday,,Tuesday and Tuesday Xtandi (Enzalutamide) 40 Mg Cap 160 Mg PO DAILY Calcium/Vitamin D (Calcium Carbonate-Cholecalciferol) 600-400 Mg-Unit Cap 1 Cap PO DAILY Amlodipine (Amlodipine Besylate) 10 Mg Tab 10 Mg PO DAILY Potassium Chloride ER (Potassium Chloride) 20 Meq Tab 40 Meq PO BID Ferrous Sulfate 325 Mg (65 Mg Iron) Tablet 325 Mg PO BIDPC Vitamin D3 (Cholecalciferol) 1,000 Unit Tab 1,000 Units PO DAILY Allergies: Coded Allergies: No Known Allergies (Verified Allergy, Unknown, 01/05/18) Active Ordered Medications Inpatient Medications Gabapentin (Neurontin) 600 mg BID PO ; Start 01/05/18 at 21:00; Status UNV Morphine Sulfate (Morphine Inj) 2 mg ONCE ONCE IV PUSH Last administered on at 13:48; Start 01/05/18 at 14:00; Stop 01/05/18 at 14:01; Status DC Ondansetron HCl (Zofran Odt) 4 mg ONCE ONCE PO Last administered on at 12:13; Start 01/05/18 at 11:45; Stop 01/05/18 at 11:47; Status DC Pantoprazole Sodium (Protonix Inj) 40 mg Q24H IV PUSH ; Start 01/06/18 at 09:00; Status UNV Pantoprazole Sodium 80 mg/ Sodium Chloride 100 ml @ 10 mls/hr Q10H IV ; Start 01/05/18 at 11:42; Stop 01/05/18 at 11:47; Status DC Prednisone (Deltasone) 5 mg BID PO ; Start 01/05/18 at 21:00; Status UNV Sodium Chloride 1,000 ml @ 100 mls/hr Q10H IV ; Start 01/05/18 at 15:45; Status UNV Sodium Chloride (NS Flush) 2 ml UNSCH PRN IVF FLUSH AFTER USING IV ACCESS Last administered on 01/05/18at 12:15; Start 01/05/18 at 11:45 Social History doesn't smoke or drink. Physical Exam Vital Signs Vital Signs Date Time Temp Pulse Resp B/P (MAP) Pulse Ox O2 Delivery O2 Flow Rate FiO2 01/05/18 13:43 93 18 146/65 (92) 96 Room Air 01/05/18 12:38 18 01/05/18 12:00 (80) Room Air 01/05/18 11:40 101 01/05/18 11:39 101 18 113/63 (80) 98 Room Air 01/05/18 11:17 97.8 107 20 112/57 (75) 99 Physical Exam GENERAL: This is a well-nourished, well-developed patient, in no apparent distress. SKIN: No rashes, ecchymoses or lesions. Cool and dry. HEAD: Atraumatic. Normocephalic. No temporal or scalp tenderness. EYES: Pupils equal round and reactive. Extraocular motions intact. No scleral icterus. No injection or drainage. ENT: Nose without bleeding, purulent drainage or septal hematoma. Throat without erythema, tonsillar hypertrophy or exudate. Uvula midline. Airway patent. NECK: Trachea midline. No JVD or lymphadenopathy. Supple, nontender, no meningeal signs. CARDIOVASCULAR: Regular rate and rhythm without murmurs, gallops, or rubs. RESPIRATORY: Clear to auscultation. Breath sounds equal bilaterally. No wheezes , rales, or rhonchi. GASTROINTESTINAL: Abdomen soft, non-tender, nondistended. No hepato-splenomegaly , or palpable masses. No guarding. MUSCULOSKELETAL: Extremities without clubbing, cyanosis, or edema. No joint tenderness, effusion, or edema noted. No calf tenderness. Negative Homans sign bilaterally. NEUROLOGICAL: Awake and alert. Cranial nerves II through XII intact. Motor and sensory grossly within normal limits. Five out of 5 muscle strength in all muscle groups. Normal speech. Laboratory Laboratory Tests Test 01/05/18 11:30 White Blood Count 8.9 Red Blood Count 3.55 Hemoglobin 11.1 Hematocrit 32.7 Mean Corpuscular Volume 92.1 Mean Corpuscular Hemoglobin 31.1 Mean Corpuscular Hemoglobin Concent 33.8 Red Cell Distribution Width 15.7 Platelet Count 258 Mean Platelet Volume 8.4 Neutrophils (%) (Auto) 81.8 Lymphocytes (%) (Auto) 10.4 Monocytes (%) (Auto) 5.8 Eosinophils (%) (Auto) 1.5 Basophils (%) (Auto) 0.5 Neutrophils # (Auto) 7.3 Lymphocytes # (Auto) 0.9 Monocytes # (Auto) 0.5 Eosinophils # (Auto) 0.1 Basophils # (Auto) 0.0 CBC Comment DIFF FINAL Differential Comment Prothrombin Time 33.4 Prothromb Time International Ratio 3.3 Activated Partial Thromboplast Time 33.6 Blood Urea Nitrogen 30 Creatinine 1.47 Random Glucose 142 Total Protein 5.8 Albumin 2.8 Calcium Level 9.1 Alkaline Phosphatase 67 Aspartate Amino Transf (AST/SGOT) 24 Alanine Aminotransferase (ALT/SGPT) 24 Total Bilirubin 0.4 Sodium Level 140 Potassium Level 4.8 Chloride Level 106 Carbon Dioxide Level 25.3 Anion Gap 9 Estimat Glomerular Filtration Rate 47 Lipase 79 Result Diagram: 01/05/18 1130 01/05/18 1130 Imaging Last Impressions Chest X-Ray 01/05/18 1142 Signed Impressions: CONCLUSION: Minimal basilar atelectasis or scarring. Cardiomegaly. [id number] in right a trium. Head CT 01/05/18 0000 Signed Impressions: CONCLUSION: 1. Stable unremarkable noncontrast head CT. Femur X-Ray 01/05/18 0000 Signed Impressions: CONCLUSION: No acute bony abnormality. Abdomen/Pelvis CT 01/05/18 0000 Signed Impressions: CONCLUSION: 1. Multiple new sclerotic osseous lesions metastatic most characteristic of di sease. 2. The left kidney is now mildly atrophic with cortical scarring and multiple benign cysts. There is a tiny less than 1 mm nonobstructing right renal calcul us. 3. Nonobstructive, nonspecific bowel gas pattern which may represent a mild il eus and/or gastroenteritis.. Caprini VTE Risk Assessment Caprini VTE Risk Assessment: Mod/High Risk (score >= 2) Caprini Risk Assessment Model Point Value = 1 Point Value = 2 Point Value = 3 Point Value = 5 Age 41-60 Minor surgery BMI > 25 kg/m2 Swollen legs Varicose veins or History of unexplained or recurrent spontaneous Oral contraceptives or hormone replacement Sepsis (< 1 month) Serious lung disease, including pneumonia (< 1 month) Abnormal pulmonary function Acute myocardial infarction Congestive heart failure (< 1 month) History of inflammatory bowel disease Medical patient at bed rest Age 61-74 Arthroscopic surgery Major open surgery (> 45 min) Laparoscopic surgery (> 45 min) Malignancy Confined to bed (> 72 hours) Immobilizing plaster cast Central venous access Age >= 75 History of VTE Family history of VTE Factor V Leiden Prothrombin [id number] Lupus anticoagulant Anticardiolipin antibodies Elevated serum homocysteine Heparin-induced thrombocytopenia Other congenital or acquired thrombophilia Stroke (< 1 month) Elective arthroplasty Hip, pelvis, or leg fracture Acute spinal cord injury (< 1 month) Prophylaxis Regimen Total Risk Factor Score Risk Level Prophylaxis Regimen 0-1 Low Early ambulation 2 Moderate Order ONE of the following: *Sequential Compression Device (SCD) *Heparin 5000 units SQ BID 3-4 Higher Order ONE of the following medications: *Heparin 5000 units SQ TID *Enoxaparin/Lovenox 40 mg SQ daily (WT < 150 kg, CrCl > 30 mL/min) *Enoxaparin/Lovenox 30 mg SQ daily (WT < 150 kg, CrCl > 10-29 mL/min) *Enoxaparin/Lovenox 30 mg SQ BID (WT < 150 kg, CrCl > 30 mL/min) AND/OR *Sequential Compression Device (SCD) 5 or more Highest Order ONE of the following medications: *Heparin 5000 units SQ TID (Preferred with Epidurals) *Enoxaparin/Lovenox 40 mg SQ daily (WT < 150 kg, CrCl > 30 mL/min) *Enoxaparin/Lovenox 30 mg SQ daily (WT < 150 kg, CrCl > 10-29 mL/min) *Enoxaparin/Lovenox 30 mg SQ BID (WT < 150 kg, CrCl > 30 mL/min) AND *Sequential Compression Device (SCD) Assessment and Plan Assessment and Plan A/P - rectal bleed- patient is on coumdin will reverse the coumadin with FFP- monitor H/H closely and transfuse as needed- continue PPI- coumadin on hold- consult GI. -acute kidney injury; start on IV fluid- monitor the renal function; BMP tomorrow. -prostate cancer with bone metastasis- continue with pain control- f/u as outpatient. -hypertension; will hold BP meds for now due to GI bleed- continue to monitor BP ; will resume home BP meds gradually if clinically remains stable. -history of a-fib?- hold coumdin- will monitor -DVT prophylaxis; with SCD's- no chemical prophylaxis due to GI bleed. Discussed Condition With ER , the patient and his family. Problem Qualifiers (1) GI bleed: Qualified Codes: K92.2 - Gastrointestinal hemorrhage, unspecified Brian Blair MD January 05, 2018 15:51
[2018-01-05] MEDS: SODIUM CHLOR 0.9% 1000 ML INJ 1,000 ML IV SCH ×2 (16:24→21:16)
--- NOTE | 2018-01-05 16:27 | PD.CONS ---
HPI History of Present Illness This is a 67 year old M with PMH significant for a-fib on Coumadin, prostate cancer with bone metastasis being [facility] [place] currently on oral chemotherapy with plans for radiation in the near future, and HTN. He presented to the ER today with a main complaint of right leg pain from his groin down to his feet. He also reports three episodes of rectal bleeding, first episode was yesterday. Complaining of light headedness when he stands. Associated lower abdominal pain, intermittent, described as aching. Also was having some dry heaves last night, unable to bring anything up. Denies any recent unintentional weight loss, acid reflux, heartburn, family history of colon cancer. Pt reports last colonoscopy was 2-3 years ago and he thinks the exam was normal. Unsure if he has had previous EGD. Denies ETOH. Smokes an occasional cigarette. Denies NSAIDs. (Che Mas) PFSH Past Medical History prostate cancer/ hypertension/ a-fib Past Surgical History leg/ shoulder/abdominal surgeries (Che Mas) Coded Allergies: No Known Allergies (Verified Allergy, Unknown, 01/05/18) Social History Denies ETOH Occasional cigarette (Che Mas) Review of Systems Gastrointestinal: COMPLAINS OF: Abdominal pain, Bloody stools, Nausea, DENIES: Black stools, Constipation, Vomiting, Swelling of Abdomen, Heartburn, Hematemesis (Che Mas) GI Exam Vitals I&O Vital Signs Date Time Temp Pulse Resp B/P (MAP) Pulse Ox O2 Delivery O2 Flow Rate FiO2 01/05/18 13:43 93 18 146/65 (92) 96 Room Air 01/05/18 12:38 18 01/05/18 12:00 (80) Room Air 01/05/18 11:40 101 01/05/18 11:39 101 18 113/63 (80) 98 Room Air 01/05/18 11:17 97.8 107 20 112/57 (75) 99 I/O 01/04/18 01/04/18 01/04/18 01/05/18 01/05/18 01/05/18 07:00 15:00 23:00 07:00 15:00 23:00 Intake Total 535 ml Balance 535 ml Intake IV Total 535 ml Imaging Last Impressions Chest X-Ray 01/05/18 1142 Signed Impressions: CONCLUSION: Minimal basilar atelectasis or scarring. Cardiomegaly. [id number] in right a trium. Head CT 01/05/18 0000 Signed Impressions: CONCLUSION: 1. Stable unremarkable noncontrast head CT. Femur X-Ray 01/05/18 0000 Signed Impressions: CONCLUSION: No acute bony abnormality. Abdomen/Pelvis CT 01/05/18 0000 Signed Impressions: CONCLUSION: 1. Multiple new sclerotic osseous lesions metastatic most characteristic of di sease. 2. The left kidney is now mildly atrophic with cortical scarring and multiple benign cysts. There is a tiny less than 1 mm nonobstructing right renal calcul us. 3. Nonobstructive, nonspecific bowel gas pattern which may represent a mild il eus and/or gastroenteritis.. Laboratory Test 01/05/18 11:30 White Blood Count 8.9 TH/MM3 Red Blood Count 3.55 MIL/MM3 Hemoglobin 11.1 GM/DL Hematocrit 32.7 % Mean Corpuscular Volume 92.1 FL Mean Corpuscular Hemoglobin 31.1 PG Mean Corpuscular Hemoglobin Concent 33.8 % Red Cell Distribution Width 15.7 % Platelet Count 258 TH/MM3 Mean Platelet Volume 8.4 FL Neutrophils (%) (Auto) 81.8 % Lymphocytes (%) (Auto) 10.4 % Monocytes (%) (Auto) 5.8 % Eosinophils (%) (Auto) 1.5 % Basophils (%) (Auto) 0.5 % Neutrophils # (Auto) 7.3 TH/MM3 Lymphocytes # (Auto) 0.9 TH/MM3 Monocytes # (Auto) 0.5 TH/MM3 Eosinophils # (Auto) 0.1 TH/MM3 Basophils # (Auto) 0.0 TH/MM3 CBC Comment DIFF FINAL Differential Comment Prothrombin Time 33.4 SEC Prothromb Time International Ratio 3.3 RATIO Activated Partial Thromboplast Time 33.6 SEC Blood Urea Nitrogen 30 MG/DL Creatinine 1.47 MG/DL Random Glucose 142 MG/DL Total Protein 5.8 GM/DL Albumin 2.8 GM/DL Calcium Level 9.1 MG/DL Alkaline Phosphatase 67 U/L Aspartate Amino Transf (AST/SGOT) 24 U/L Alanine Aminotransferase (ALT/SGPT) 24 U/L Total Bilirubin 0.4 MG/DL Sodium Level 140 MEQ/L Potassium Level 4.8 MEQ/L Chloride Level 106 MEQ/L Carbon Dioxide Level 25.3 MEQ/L Anion Gap 9 MEQ/L Estimat Glomerular Filtration Rate 47 ML/MIN Lipase 79 U/L Physical Examination HEENT: Normocephalic; atraumatic CHEST: Even/unlabored CARDIAC: Irregular, rate controlled ABDOMEN: Distended, soft, nontender, bowel sounds active, midline scar SKIN: Normal; no rash; no jaundice. METHODS STUDY ANALYST: Alert and oriented times three. (Che Mas) Assessment and Plan Plan Assessment: - Rectal bleeding- three episodes since yesterday Associated lower abdominal pain, intermittent, described as aching H/H 11.1/32.7 Pt on Warfarin for A-fib- INR-3.3 Last colonoscopy 2-3 years ago and he thinks normal exam. Unsure if he has had previous EGD. Denies weight loss, acid reflux, heartburn, family history of colon cancer. Denies ETOH, rare cigarette Reports history of abdominal surgeries from [place] war- thinks shrapnel removed CT abdomen and pelvis WO IV contrast -->Multiple new sclerotic osseous lesions metastatic most characteristic of disease. The left kidney is now mildly atrophic with cortical scarring and multiple benign cysts. There is a tiny less than 1 mm nonobstructing right renal calculus. Nonobstructive, nonspecific bowel gas pattern which may represent a mild ileus and/or gastroenteritis. - Nausea with dry heaving- has been unable to bring anything up - Prostate cancer with bone metastasis- on oral chemo with plans for radiation in near future- follows oncologist at [facility] in [place] Plan: EGD/colonoscopy tomorrow Obtain consent Clear liquids today Golytely prep NPO after MN Monitor H/H Transfuse as needed 4 U FFP ordered per attending Recheck INR in AM Stool studies Further recommendations based on clinical course and results of above Pt has been seen and examined by myself and Dr. Natarajan and this note is written on his behalf (Che Mas) Physician Comments Seen and examined with [facility], egd/colonoscopy tomorrow. Dr Moore to follow. Thank you (Merritt Natarajan MD) Che Mas January 05, 2018 16:27 Merritt Natarajan MD Jan 09, 2018 08:43
[2018-01-05] MEDS ORDERED: PEG (High)/E-LYTE SOLN 4000 ML BTL PO ONE (17:00)
[2018-01-05] MEDS: HYDROmorphone HCL PF 0.5 MG/0.5 ML SYRINGE IV PUSH PRN (18:15)
[2018-01-05] MEDS ORDERED: LACTATED RINGER'S 1000 ML IV PRN (20:00)
[2018-01-05] MEDS ORDERED: CHLORHEXIDINE GLUCONATE 2 % 1 PACK (2 CLOTHS) TOPICAL PRN (20:00)
[2018-01-05] MEDS ORDERED: SODIUM CHLORID 0.9% 500 ML IV PRN (20:00)
[2018-01-05] MEDS ORDERED: POVIDONE IODINE 5% (ANTISEPSIS KIT) 4 APPLICATIONS EACH NARE PRN (20:00)
[2018-01-05] MEDS: predniSONE 5 MG TAB PO SCH (21:15)
[2018-01-05] MEDS: GABAPENTIN 300 MG CAP PO SCH (21:15)
[2018-01-05 21:40] LABS: HEMATOCRIT 24.9 % (39.0-51.0); HEMOGLOBIN 8.6 GM/DL (13.0-17.0)
[2018-01-06] VITALS (17 sets, daily range): BP systolic 114–161; BP diastolic 60–83; PULSE 61–108; RESP 16–20; TEMP 97.7–98.9; O2SAT 91–98
[2018-01-06] MEDS ORDERED: ONDANSETRON ODT 4 MG TAB PO PRN (02:00)
[2018-01-06] MEDS ORDERED: MELATONIN 5 MG TAB PO ONE (02:00)
[2018-01-06 04:57] LABS: HEMOGLOBIN 7.3 GM/DL (13.0-17.0)
[2018-01-06 05:01] LABS: AUTOMATED NEUTROPHIL # 6.1 TH/MM3 (1.8-7.7); BASOPHIL % 0.4 % (0.0-2.0); EOSINOPHIL # 0.1 TH/MM3 (0-0.4); EOSINOPHIL % 1.3 % (0.0-4.0); LYMPH % 9.7 % (9.0-44.0); LYMPHOCYTE # 0.7 TH/MM3 (1.0-4.8); MEAN CELL VOLUME 91.3 FL (80.0-100.0); MEAN CORPUSCULAR HEMOGLOBIN 31.9 PG (27.0-34.0); MEAN PLATELET VOLUME 7.9 FL (7.0-11.0); MONO % 8.7 % (0.0-8.0); MONOCYTE # 0.7 TH/MM3 (0-0.9); NEUT % 79.9 % (16.0-70.0); PLATELET COUNT 200 TH/MM3 (150-450); RED CELL DISTRIBUTION WIDTH 15.7 % (11.6-17.2); WHITE BLOOD COUNT 7.6 TH/MM3 (4.0-11.0)
[2018-01-06 05:04] LABS: INTERNATIONAL NORMALIZED RATIO 1.6 RATIO; PROTHROMBIN TIME - PATIENT 16.1 SEC (9.8-11.6)
[2018-01-06 05:09] LABS: HEMATOCRIT 20.1 % (39.0-51.0)
[2018-01-06 05:24] LABS: BICARBONATE 26.6 MEQ/L (21.0-32.0); CALCIUM 9.2 MG/DL (8.5-10.1); CREATININE 2.07 MG/DL (0.60-1.30)
[2018-01-06] MEDS ORDERED: SODIUM CHLOR 0.9% 250 ML INJ 250 ML IV ONE (05:30)
--- NOTE | 2018-01-06 09:16 | HHI.PR ---
Subjective Remarks Follow up GI bleed, anemia. Patient denies lightheadedness, dyspnea, nausea, vomiting. Still having bloody stools. Reporting pain in his right upper leg for the past 2 weeks, which has been evaluated by his PCP. Objective Vitals Vital Signs Date Time Temp Pulse Resp B/P (MAP) Pulse Ox O2 Delivery O2 Flow Rate FiO2 01/06/18 07:43 98.9 87 18 117/65 (82) 93 01/06/18 06:48 97.8 86 18 114/60 97 01/06/18 06:29 97.8 92 18 131/67 96 01/06/18 04:42 97.7 96 16 161/77 (105) 96 01/06/18 04:00 84 01/06/18 03:46 98.2 90 18 142/83 93 01/06/18 03:29 98.2 88 18 151/79 97 01/06/18 01:35 98.0 86 18 137/75 98 01/06/18 00:42 98.2 96 18 136/67 91 01/06/18 00:39 98.2 96 18 136/67 91 01/06/18 00:35 98.1 91 16 136/67 (90) 91 01/06/18 00:00 108 01/05/18 22:15 97.7 99 18 138/77 96 01/05/18 22:01 97.6 98 18 133/87 95 01/05/18 21:30 97.6 98 18 133/87 95 01/05/18 21:00 92 01/05/18 19:44 97.7 88 16 131/71 (91) 99 01/05/18 19:35 98 01/05/18 18:20 98.1 95 18 112/71 96 01/05/18 17:56 98.7 98 18 121/93 97 01/05/18 17:27 01/05/18 17:23 01/05/18 16:16 100 102/62 (75) 01/05/18 13:43 93 18 146/65 (92) 96 Room Air 01/05/18 12:38 18 01/05/18 12:00 (80) Room Air 01/05/18 11:40 101 01/05/18 11:39 101 18 113/63 (80) 98 Room Air 01/05/18 11:17 97.8 107 20 112/57 (02) 99 I/O 01/05/18 01/05/18 01/05/18 01/06/18 01/06/18 01/06/18 07:00 15:00 23:00 07:00 15:00 23:00 Intake Total 535 ml 328 ml 796 ml Balance 535 ml 328 ml 796 ml Intake IV Total 535 ml FFP 318 ml 796 ml Blood Product IV Normal Saline Flush 10 ml # Bowel Movements 3 Result Diagram: 01/06/18 0421 01/06/18 0421 Imaging Last Impressions Chest X-Ray 01/05/18 1142 Signed Impressions: CONCLUSION: Minimal basilar atelectasis or scarring. Cardiomegaly. [id number] in right a trium. Head CT 01/05/18 0000 Signed Impressions: CONCLUSION: 1. Stable unremarkable noncontrast head CT. Femur X-Ray 01/05/18 0000 Signed Impressions: CONCLUSION: No acute bony abnormality. Abdomen/Pelvis CT 01/05/18 0000 Signed Impressions: CONCLUSION: 1. Multiple new sclerotic osseous lesions metastatic most characteristic of di sease. 2. The left kidney is now mildly atrophic with cortical scarring and multiple benign cysts. There is a tiny less than 1 mm nonobstructing right renal calcul us. 3. Nonobstructive, nonspecific bowel gas pattern which may represent a mild il eus and/or gastroenteritis.. Objective Remarks General: No acute distress. Heart: Regular rate and rhythm. No murmur. Lungs: Clear to auscultation bilaterally. No wheezes, rales, or rhonchi. Breathing is nonlabored. Abdomen: Soft, nontender, mildly distended. Extremities: No lower extremity edema. Psych: Alert and oriented. Neuro: Normal speech. No focal deficits noted. Procedures None Urinary Catheter: No Vascular Central Line Catheter: No A/P Problem List: (1) GI bleed ICD Code: K92.2 - Gastrointestinal hemorrhage, unspecified Status: Acute Assessment and Plan 1. Acute GI bleed: Patient continues to have bloody stools. Going for EGD/ colonoscopy today. Appreciate gastroenterology recommendations. Continue PPI. Patient received FFP and INR has decreased. 2. Anemia secondary to acute blood loss from GI bleed: Receiving transfusion now. Monitor H&H closely. 3. Acute kidney injury: Creatinine trending up. On IV fluids. Check renal ultrasound. Consider nephrology consult. 4. Atrial fibrillation: On Coumadin chronically. Coumadin is on hold. 5. Hypertension: Blood pressure meds on hold at this time. 6. DVT prophylaxis: SCDs. Avoid chemical prophylaxis secondary to GI bleed. Discharge Planning Admit to medical/surgical floor with telemetry. Problem Qualifiers (1) GI bleed: Qualified Codes: K92.2 - Gastrointestinal hemorrhage, unspecified Myles Akbar MD Jan 06, 2018 09:16
--- NOTE | 2018-01-06 10:04 | RADRPT ---
EXAM DATE: 01/06/2018 9:48 AM EDT AGE/SEX: 67 years / Male INDICATIONS: Increased BUN/Creatinine. CLINICAL DATA: This is the patient's initial encounter. Patient reports that signs and symptoms have been present for 1 day and indicates a pain score of 0/10. MEDICAL/SURGICAL HISTORY: Hypertension. Prostate cancer. Bone cancer. Melena. Gastrointestinal ulcer. Atrial fibrillation. GI bleed. . History of chemotherapy. History of radiation therapy. Mul tiple surgery bilateral arms and right leg. COMPARISON: [facility] [place], CT ABDOMEN & PELVIS W/O CONTRAST, 01/05/2018. . No external comparison. MEASUREMENTS: Right Kidney:__11.5 x 5.4 x 5.8 cm Left Kidney:__11.2 x 5.8 x 6.9 cm FINDINGS: Right Kidney: The right kidney is normal in size and shape. There is a parapelvic cyst present measur ing 3.4 x 3.2 x 0.4 cm in diameter. There is no solid mass, calculi or hydronephrosis. Left Kidney: The left kidney demonstrates mild apparent cortical thinning. There are multiple cysts. The largest cyst is bilobed and measures up to approximately 10.5 x 5.7 x 10.6 cm. There is a second 4.7 x 4.4 x 3.4 cm cyst. There is a 2.1 x 1.9 x 2 cm cyst in the lower pole. A small calcification is present. There is no definite hydronephrosis. Bladder: Within normal limits given the degree of distension. CONCLUSION: 1. No evidence of hydronephrosis. 2. Cortical thinning in the left kidney. 3. No evidence of hydronephrosis. 4. Multiple bilateral simple appearing cyst. Electronically signed by: Bon Kelly MD 01/06/2018 10:02 AM EDT
[2018-01-06] MEDS: predniSONE 5 MG TAB PO SCH ×2 (10:44→20:08)
[2018-01-06] MEDS: GABAPENTIN 300 MG CAP PO SCH ×2 (10:45→20:08)
[2018-01-06] MEDS: PANTOPRAZOLE SODIUM 40 MG VIAL IV PUSH SCH (10:45)
[2018-01-06] MEDS: SODIUM CHLOR 0.9% 1000 ML INJ 1,000 ML IV SCH ×2 (12:00→20:04)
[2018-01-06] MEDS ORDERED: PROPOFOL 200 MG/20 ML AMP IV ONE (12:00)
--- NOTE | 2018-01-06 16:21 | GIPROC ---
[facility] [address] [facility]. [facility] [place], [address] EGD PROCEDURE REPORT EXAM DATE: 01/06/2018 PATIENT NAME: Ladarius Davies MR #: [id number] BIRTHDATE: 1950 ATTENDING: Collette Moore MD ORDER #: [id number] STAVE BLOCK SPLITTER: Casa Arciniega and Ingrid Handley STATUS: inpatient INDICATIONS: The patient is a 67 yr old male here for an EGD due to hematochezia PROCEDURE PERFORMED: EGD w/ biopsy MEDICATIONS: Per Anesthesia and None. TOPICAL ANESTHETIC: none CONSENT: The patient understands the risks and benefits of the procedure and understands that these risks include, but are not limited to: sedation, allergic reaction, infection, perforation and/or bleeding. Alternative means of evaluation and treatment include, among others: physical exam, x-rays, and/or surgical intervention. The patient elects to proceed with this endoscopic procedure. medical equipment was checked for proper function. Hand hygiene and appropriate measures for infection prevention was taken. After the risks, benefits and alternatives of the procedure were thoroughly explained, Informed consent was verified, confirmed and timeout was successfully executed by the treatment team. The patient was anesthetized with topical anesthesia and the EC-3490Li (Pedi C) endoscope was introduced through the mouth and advanced to the third portion of the duodenum. Retroflexion was performed and was normal The gastroscope was then slowly withdrawn and removed. ESOPHAGUS: The esophagus was otherwise normal. STOMACH: There was bile moderate and erosive gastritis in the gastric body. A biopsy was performed using cold forceps. Sample sent for histology. A Billroth II anastomosis was found characterized as healthy in appearance. The site was intact. DUODENUM: The duodenal mucosa appeared normal in the 3rd part of the duodenum. ADVERSE EVENTS: There were no complications. IMPRESSIONS: 1. The esophagus was otherwise normal 2. There was bile gastritis in the gastric body; biopsy was performed 3. Billroth II anastomosis was found 4. Normal duodenal mucosa in the 3rd part of the duodenum 5. Retroflexion was performed and was normal RECOMMENDATIONS: 1. Await biopsy results. Biopsy results will not be ready for 7-10 days. If you don't hear from us in two weeks, call our office for biopsy results. 2. Await biopsy results. Biopsy results will not be ready for 7-10 days. If you don't hear from us in two weeks, call our office for biopsy results. 3. Continue PPI PATIENT CONDITION: stable DISPOSITION: Observation REPEAT EXAM: NONE Collette Moore MD eSigned: Collette Moore MD 01/06/2018 4:20 PM cc: PATIENT NAME: Ladarius Davies MR#: [id number]
--- NOTE | 2018-01-06 16:26 | GIPROC ---
[facility] [address] [facility]. [facility], [address] COLONOSCOPY PROCEDURE REPORT EXAM DATE: 01/06/2018 PATIENT NAME: Ladarius Davies MR #: [id number] BIRTHDATE: 1950 ENDOSCOPIST: Collette Moore MD ORDER #: [id number] FIRE PREVENTION ENGINEER: Casa Arciniega and Ingrid Handley STATUS: inpatient INDICATIONS: The patient is a 67 yr old male here for a colonoscopy due to anal bleeding PROCEDURE PERFORMED: Colonoscopy, diagnostic MEDICATIONS: Per Anesthesia and None. PREP QUALITY: poor PREP TYPE:GoLytely ESTIMATED BLOOD LOSS: None CONSENT: The patient understands the risks and benefits of the procedure and understands that these risks include, but are not limited to: sedation, allergic reaction, infection, perforation and/or bleeding. Alternative means of evaluation and treatment include, among others: physical exam, x-rays, and/or surgical intervention. The patient elects to proceed with this endoscopic procedure. medical equipment was checked for proper function. Hand hygiene and appropriate measures for infection prevention was taken. After the risks, benefits and alternatives of the procedure were thoroughly explained, Informed consent was verified, confirmed and timeout was successfully executed by the treatment team. A digital exam was performed The Pentax EC-[id number] endoscope was introduced through the anus and advanced to the cecum, which was identified by both the appendix and ileocecal valve. The instrument was then slowly withdrawn as the colon was fully examined. COLON FINDINGS: A significant amount of fresh blood was found throughout the entire examined colon. Retroflexion was not performed due to a narrow rectal vault The scope was then completely withdrawn from the patient and the procedure terminated. PROCEDURE WITHDRAWAL TIME:12minutes ADVERSE EVENTS: There were no complications. IMPRESSIONS: 1. A significant amount of blood was found throughout the entire examined colon 2. Retroflexion was not performed due to a narrow rectal vault 3. No active bleeding site identified but limited exam with blood covering the lumen RECOMMENDATIONS: 1. Continue surveillance 2. Xray for Small bowel follow through RECALL: Return 2 months Colonoscopy Collette Moore MD eSigned: Collette Moore MD 01/06/2018 4:25 PM cc: PATIENT NAME: Ladarius Davies MR#: [id number]
[2018-01-06] MEDS: HYDROmorphone HCL PF 0.5 MG/0.5 ML SYRINGE IV PUSH PRN ×2 (16:43→21:01)
[2018-01-06] MEDS ORDERED: HYDROmorphone HCL PF 2 MG/ML VIAL ONE (16:47)
[2018-01-06 18:52] LABS: HEMATOCRIT 23.4 % (39.0-51.0); HEMOGLOBIN 8.2 GM/DL (13.0-17.0)
[2018-01-06] MEDS: MELATONIN 5 MG TAB PO PRN (23:34)
[2018-01-07] VITALS (10 sets, daily range): BP systolic 136–159; BP diastolic 72–87; PULSE 77–103; RESP 16–19; TEMP 97.9–99.1; O2SAT 92–98
[2018-01-07] MEDS: HYDROmorphone HCL PF 0.5 MG/0.5 ML SYRINGE IV PUSH PRN ×4 (04:42→18:11)
[2018-01-07 07:27] LABS: AUTOMATED NEUTROPHIL # 5.5 TH/MM3 (1.8-7.7); BASOPHIL % 0.3 % (0.0-2.0); EOSINOPHIL # 0.4 TH/MM3 (0-0.4); EOSINOPHIL % 4.4 % (0.0-4.0); HEMATOCRIT 24.3 % (39.0-51.0); HEMOGLOBIN 8.6 GM/DL (13.0-17.0); LYMPH % 16.5 % (9.0-44.0); LYMPHOCYTE # 1.4 TH/MM3 (1.0-4.8); MEAN CELL VOLUME 90.3 FL (80.0-100.0); MEAN CORPUSCULAR HEMOGLOBIN 31.8 PG (27.0-34.0); MEAN CORPUSCULAR HGB CONC 35.2 % (32.0-36.0); MEAN PLATELET VOLUME 7.9 FL (7.0-11.0); MONO % 11.4 % (0.0-8.0); MONOCYTE # 0.9 TH/MM3 (0-0.9); NEUT % 67.4 % (16.0-70.0); PLATELET COUNT 198 TH/MM3 (150-450); RED BLOOD COUNT 2.69 MIL/MM3 (4.50-5.90); RED CELL DISTRIBUTION WIDTH 16.5 % (11.6-17.2); WHITE BLOOD COUNT 8.2 TH/MM3 (4.0-11.0)
[2018-01-07 07:51] LABS: CALCIUM 8.9 MG/DL (8.5-10.1); CREATININE 1.18 MG/DL (0.60-1.30)
[2018-01-07] MEDS: SODIUM CHLOR 0.9% 1000 ML INJ 1,000 ML IV SCH ×2 (08:00→18:00)
[2018-01-07] MEDS: GABAPENTIN 300 MG CAP PO SCH ×2 (09:01→20:57)
[2018-01-07] MEDS: predniSONE 5 MG TAB PO SCH ×2 (09:01→20:57)
[2018-01-07] MEDS: PANTOPRAZOLE SODIUM 40 MG VIAL IV PUSH SCH (09:02)
[2018-01-07] MEDS: BACLOFEN 10 MG TAB PO SCH ×3 (09:30→20:58)
--- NOTE | 2018-01-07 09:30 | HHI.PR ---
Subjective Remarks Follow-up visit GI bleed, anemia. Patient seen and examined today. States he is doing well. Denies any bloody bowel movement overnight nor hematemesis. States his only problem is his right thigh is very painful but shooting down pain. States that he has had these problems for about 3 weeks now. He has [facility] who gave him cream to apply on his right thigh but states it was not working. States he is unable to flex or bend his knee nor put pressure on it when he standing up because of severe pain. Otherwise, denies SOB/ dyspnea. Denies chest pain, palpitations, headaches, dizziness. Denies fevers, chills, n/v/d. Denies hematuria, dysuria. Objective Vitals Vital Signs Date Time Temp Pulse Resp B/P (MAP) Pulse Ox O2 Delivery O2 Flow Rate FiO2 01/07/18 08:00 98.2 87 18 159/76 (103) 92 01/07/18 07:35 78 01/07/18 04:00 82 01/07/18 04:00 99.1 82 16 136/74 (94) 95 01/07/18 00:00 97.9 85 18 139/72 (94) 95 01/07/18 00:00 80 01/06/18 20:01 61 01/06/18 20:00 97.7 74 18 129/63 (85) 94 01/06/18 16:40 97.4 74 18 125/58 (80) 98 01/06/18 16:00 98.0 83 16 127/65 (85) 98 01/06/18 12:18 98.9 78 20 153/83 (106) 94 I/O 01/06/18 01/06/18 01/06/18 01/07/18 01/07/18 01/07/18 07:00 15:00 23:00 07:00 15:00 23:00 Intake Total 796 ml 400 ml 0 ml 0 ml Output Total 400 ml Balance 796 ml 400 ml -400 ml 0 ml Intake Oral 0 ml IV Total 0 ml Packed Cells 400 ml FFP 796 ml Output Urine Total 400 ml # Bowel Movements 3 0 Result Diagram: 01/07/18 0642 01/07/18 0642 Imaging Last Impressions Renal Ultrasound 01/06/18 0000 Signed Impressions: CONCLUSION: 1. No evidence of hydronephrosis. 2. Cortical thinning in the left kidney. 3. No evidence of hydronephrosis. 4. Multiple bilateral simple appearing cyst. Chest X-Ray 01/05/18 1142 Signed Impressions: CONCLUSION: Minimal basilar atelectasis or scarring. Cardiomegaly. Rfbtnc-r-[id number] in right a trium. Head CT 01/05/18 0000 Signed Impressions: CONCLUSION: 1. Stable unremarkable noncontrast head CT. Femur X-Ray 01/05/18 Signed Impressions: CONCLUSION: No acute bony abnormality. Abdomen/Pelvis CT 01/05/18 Signed Impressions: CONCLUSION: 1. Multiple new sclerotic osseous lesions metastatic most characteristic of di sease. 2. The left kidney is now mildly atrophic with cortical scarring and multiple benign cysts. There is a tiny less than 1 mm nonobstructing right renal calcul us. 3. Nonobstructive, nonspecific bowel gas pattern which may represent a mild il eus and/or gastroenteritis.. Objective Remarks GENERAL: This is a well-nourished, well-developed patient, in no apparent distress. SKIN: Warm and dry HEENT: Normocephalic. Pupils equal round and reactive. Nose without bleeding. Airway patent. NECK: Trachea midline. No JVD. Supple. CARDIOVASCULAR: Regular rate and rhythm without murmurs, gallops, or rubs. RESPIRATORY: Clear to auscultation. Breath sounds equal bilaterally. No wheezes , rales, or rhonchi. GASTROINTESTINAL: Abdomen soft, non-tender, protuberant. Bowel Sounds normoactive x4. MUSCULOSKELETAL: Extremities without clubbing, cyanosis. Bilateral lower extremity trace edema. Right lower extremity decrease R OM secondary to pain, tender to flexion and extension NEUROLOGICAL: Awake and alert. Oriented to time, place, person. No focal neuro deficit. Moves all extremities. Normal speech. Procedures None A/P Problem List: (1) GI bleed ICD Code: K92.2 - Gastrointestinal hemorrhage, unspecified Status: Acute Assessment and Plan Patient is a 67-year-old male with history of prostate cancer, hypertension, a- fib who presented to ER with rectal bleed. Acute GI bleed: -Patient with bloody stools. -EGD/colonoscopy done. -Colonoscopy showed significant amount of fresh blood found throughout the entire colon. Retroflexion was not performed due to a narrow rectal vault. No active bleeding site identified but limited exam with blood covering the lumen. Plan for x-ray for small bowel follow-through. Recommend return in 2 months for colonoscopy per -EGD showed normal esophagus. Bile gastritis in the gastric body, biopsy was performed, Billroth II anastomosis was found. Normal duodenal mucosa in the third part of the duodenum. Retroflexion was performed and was normal. Pending biopsy. -Continue PPI. Patient also received FFP for his INR. INR is decreased. -Continue to monitor. No bleeding overnight. -Monitor H&H. H&H 8.6/24.3 today. Anemia secondary to acute blood loss from GI bleed: -Received transfusion -monitor H&H Acute kidney injury: Creatinine trending up. -IV fluids for hydration. -Renal ultrasound showed no evidence of hydronephrosis. Cortical thinning in the left kidney. No evidence of hydronephrosis. Multiple bilateral simple appearing cyst -Improved kidney function, possibly this is due to anemia, dehydration Atrial fibrillation: On Coumadin chronically. Coumadin is on hold. -We will consider GI when to restart Coumadin Hypertension: Blood pressure meds on hold at this time. -We will restart medications when patient's blood pressure has improved DVT prophylaxis: SCDs. Avoid chemical prophylaxis secondary to GI bleed. Discharge Planning Plan to DC home when clinically improved and cleared by GI. Problem Qualifiers (1) GI bleed: Qualified Codes: K92.2 - Gastrointestinal hemorrhage, unspecified Alicia Peralta Jan 07, 2018 09:30
[2018-01-07] MEDS: CHOLECALCIFEROL (VIT D3) 1000 UNIT TAB PO SCH (10:15)
[2018-01-07] MEDS ORDERED: DIATRIZOATE MEGLUM/DIATRIZOATE SOD 120 ML BTL (for RAD DIAG) PO ONE (10:19)
--- NOTE | 2018-01-07 10:31 | RADRPT ---
EXAM DATE: 01/07/2018 10:18 AM EDT AGE/SEX: 67 years / Male INDICATIONS: Abdominal pain and distention. CLINICAL DATA: This is the patient's subsequent encounter. Patient reports that signs and symptoms h ave been present for 3 weeks and indicates a pain score of 5/10. MEDICAL/SURGICAL HISTORY: Hypertension. Carcinoma, prostatic. Carcinoma, bone. AFIB. None. COMPARISON: No prior [facility] exams available for comparison. FLUORO TIME: 0 IMAGE COUNT: 9 CONTRAST: FINDINGS: Preliminary film is unremarkable. The stomach is grossly unremarkable. Examination of the small bowel demonstrates normal mucosal pattern involving the jejunum and ileum. There is no evidence of mass or obstruction. No intraluminal filling defects are identified. Small bowel transit time is normal at 30 minutes. CONCLUSION: No abnormality identified on this exam. Electronically signed by: Tomasa Baugh MD 01/07/2018 10:29 AM EDT
--- NOTE | 2018-01-07 14:14 | HHI.GIFU ---
Subjective Remarks Pt resting in bed Main complaint continues to be right leg pain Does reports continued rectal bleeding, three episodes so far today Also having abdominal cramping (Che Mas) Objective Vitals I&O Vital Signs Date Time Temp Pulse Resp B/P (MAP) Pulse Ox O2 Delivery O2 Flow Rate FiO2 01/07/18 13:20 01/07/18 11:58 97.9 94 17 156/74 (101) 93 01/07/18 08:00 98.2 87 18 159/76 (103) 92 01/07/18 07:35 78 01/07/18 04:00 82 01/07/18 04:00 99.1 82 16 136/74 (94) 95 01/07/18 00:00 97.9 85 18 139/72 (94) 95 01/07/18 00:00 80 01/06/18 20:01 61 01/06/18 20:00 97.7 74 18 129/63 (85) 94 01/06/18 16:40 97.4 74 18 125/58 (80) 98 01/06/18 16:00 98.0 83 16 127/65 (85) 98 I/O 01/06/18 01/06/18 01/06/18 01/07/18 01/07/18 01/07/18 07:00 15:00 23:00 07:00 15:00 23:00 Intake Total 796 ml 400 ml 0 ml 0 ml Output Total 400 ml Balance 796 ml 400 ml -400 ml 0 ml Intake Oral 0 ml IV Total 0 ml Packed Cells 400 ml FFP 796 ml Output Urine Total 400 ml # Bowel Movements 3 0 Laboratory Laboratory Tests Test 01/06/18 18:24 01/07/18 06:42 Hemoglobin 8.2 8.6 Hematocrit 23.4 24.3 White Blood Count 8.2 Red Blood Count 2.69 Mean Corpuscular Volume 90.3 Mean Corpuscular Hemoglobin 31.8 Mean Corpuscular Hemoglobin Concent 35.2 Red Cell Distribution Width 16.5 Platelet Count 198 Mean Platelet Volume 7.9 Neutrophils (%) (Auto) 67.4 Lymphocytes (%) (Auto) 16.5 Monocytes (%) (Auto) 11.4 Eosinophils (%) (Auto) 4.4 Basophils (%) (Auto) 0.3 Neutrophils # (Auto) 5.5 Lymphocytes # (Auto) 1.4 Monocytes # (Auto) 0.9 Eosinophils # (Auto) 0.4 Basophils # (Auto) 0.0 CBC Comment DIFF FINAL Differential Comment Blood Urea Nitrogen 22 Creatinine 1.18 Random Glucose 99 Calcium Level 8.9 Sodium Level 140 Potassium Level 3.7 Chloride Level 104 Carbon Dioxide Level 27.0 Anion Gap 9 Estimat Glomerular Filtration Rate 61 Date/Time Source Procedure Growth Status 01/06/18 02:21 Stool Stool Cryptosporidium Exam Pending Received 01/06/18 02:21 Stool Stool Giardia Antigen (DANICA) Pending Received Imaging Last Impressions Small Bowel X-Ray 01/07/18 0600 Signed Impressions: CONCLUSION: No abnormality identified on this exam. Renal Ultrasound 01/06/18 0000 Signed Impressions: CONCLUSION: 1. No evidence of hydronephrosis. 2. Cortical thinning in the left kidney. 3. No evidence of hydronephrosis. 4. Multiple bilateral simple appearing cyst. Chest X-Ray 01/05/18 1142 Signed Impressions: CONCLUSION: Minimal basilar atelectasis or scarring. Cardiomegaly. Nudhsw-s-Kfuf in right a trium. Head CT 01/05/18 0000 Signed Impressions: CONCLUSION: 1. Stable unremarkable noncontrast head CT. Femur X-Ray 01/05/18 0000 Signed Impressions: CONCLUSION: No acute bony abnormality. Abdomen/Pelvis CT 01/05/18 0000 Signed Impressions: CONCLUSION: 1. Multiple new sclerotic osseous lesions metastatic most characteristic of di sease. 2. The left kidney is now mildly atrophic with cortical scarring and multiple benign cysts. There is a tiny less than 1 mm nonobstructing right renal calcul us. 3. Nonobstructive, nonspecific bowel gas pattern which may represent a mild il eus and/or gastroenteritis.. Physical Exam HEENT: Normocephalic; atraumatic CHEST: Even/unlabored ABDOMEN: Distended, semi-firm, bowel sounds active SKIN: Normal; no rash; no jaundice. MANAGING MANAGER: Alert and oriented times three. (Che Mas) Assessment and Plan Plan Assessment: - Rectal bleeding- three episodes since yesterday Associated lower abdominal pain, intermittent, described as aching H/H 11.1/32.7 Pt on Warfarin for A-fib- INR-3.3 Last colonoscopy 2-3 years ago and he thinks normal exam. Unsure if he has had previous EGD. Denies weight loss, acid reflux, heartburn, family history of colon cancer. Denies ETOH, rare cigarette Reports history of abdominal surgeries from [place] war- thinks shrapnel removed CT abdomen and pelvis WO IV contrast -->Multiple new sclerotic osseous lesions metastatic most characteristic of disease. The left kidney is now mildly atrophic with cortical scarring and multiple benign cysts. There is a tiny less than 1 mm nonobstructing right renal calculus. Nonobstructive, nonspecific bowel gas pattern which may represent a mild ileus and/or gastroenteritis. C Diff negative. Enteric pathogens stool negative. - Nausea with dry heaving- has been unable to bring anything up - Prostate cancer with bone metastasis- on oral chemo with plans for radiation in near future- follows oncologist at [facility] in [place] EGD --> Esophagus was normal. Bile gastritis in the gastric body, biopsy. Billroth 11 anastomosis. Normal duodenal mucosa in the 3rd part of the duodenum. Colonoscopy --> Significant amount of blood throughout the entire examined colon. Narrow rectal vault. No active bleeding site identified but limited exam with blood covering lumen (01/07) Pt continues to have rectal bleeding, reports three episodes today. Hgb remains about the same despite one of PRBCs yesterday. Plan: Stat NM bleeding scan Clear liquids Serial H/H Transfuse as needed Further recommendations based on clinical course and results of above Pt has been seen and examined by myself and Dr. Moore and this note is written on his behalf (Che Mas) Physician Comments As above, still with bleeding despite holding his anticoagulant. Will check bleeding scan. Follow HH and blood transfusion as needed . Will follow up with you. (Collette Moore MD) Che Mas Jan 07, 2018 14:14 Collette Moore MD Jan 07, 2018 16:44
[2018-01-07 15:48] LABS: HEMATOCRIT 24.6 % (39.0-51.0); HEMOGLOBIN 8.5 GM/DL (13.0-17.0)
--- NOTE | 2018-01-07 18:14 | RADRPT ---
EXAM DATE: 01/07/2018 5:42 PM EDT AGE/SEX: 67 years / Male INDICATIONS: Rectal bleeding for one day with abdominal pain. CLINICAL DATA: This is the patient's initial encounter. Patient reports that signs and symptoms have been present for 1 day and indicates a pain score of 0/10. MEDICAL/SURGICAL HISTORY: Carcinoma, prostatic. Hypertension. . Shrapnel removed. COMPARISON: No prior [facility] exams available for comparison. TECHNIQUE: Following the modified in vitro labeling of autologous red cells, dynamic continuous image s were acquired for two hours. ?? DOSE: 21 mCi Tc 99m Ultratag Labeled Red Blood Cells IV IMAGING TIME: 1 hr FINDINGS: Biodistribution: There is a very good labeling of red cells without significant uptake in the gastri c wall. There is good delineation of the blood pool of the spleen and abdominal vessels. Bleeding: No episodes of active GI bleeding are observed during two hours of continuous observation . CONCLUSION: 1. No active GI bleed demonstrated. Electronically signed by: Manolo Olivo MD 01/07/2018 6:12 PM EDT
[2018-01-07 20:31] LABS: HEMATOCRIT 23.3 % (39.0-51.0)
[2018-01-07] MEDS: MELATONIN 5 MG TAB PO PRN (23:28)
[2018-01-08] VITALS (12 sets, daily range): BP systolic 126–195; BP diastolic 66–93; PULSE 76–93; RESP 18–19; TEMP 97.9–98.5; O2SAT 92–97
[2018-01-08] MEDS: SODIUM CHLOR 0.9% 1000 ML INJ 1,000 ML IV SCH (02:11)
[2018-01-08] MEDS: HYDROmorphone HCL PF 0.5 MG/0.5 ML SYRINGE IV PUSH PRN ×4 (02:55→19:22)
[2018-01-08 02:59] LABS: HEMATOCRIT 23.4 % (39.0-51.0); HEMOGLOBIN 8.4 GM/DL (13.0-17.0)
[2018-01-08 03:23] LABS: BICARBONATE 28.1 MEQ/L (21.0-32.0); CALCIUM 8.7 MG/DL (8.5-10.1); CREATININE 0.9 MG/DL (0.60-1.30)
[2018-01-08] MEDS ORDERED: cloNIDine HCL 0.1 MG TAB PO ONE (06:15)
[2018-01-08] MEDS: BACLOFEN 10 MG TAB PO SCH ×3 (06:40→21:00)
--- NOTE | 2018-01-08 09:06 | HHI.PR ---
Subjective Remarks Follow-up visit GI bleed, anemia. Patient seen and examined today. Patient states he is doing better. States no rectal bleeding overnight. He had rectal bleeding reported 3 times yesterday throughout the day. Plan for bleeding scan by rivet thrower. Patient is sitting up in the chair. Denies dizziness, chest pain, palpitations. Denies shortness of breath or dyspnea. Denies fevers , chills, nausea, vomiting, diarrhea overnight. Objective Vitals Vital Signs Date Time Temp Pulse Resp B/P (MAP) Pulse Ox O2 Delivery O2 Flow Rate FiO2 01/08/18 08:00 98.3 84 18 147/66 (93) 93 01/08/18 06:49 83 01/08/18 06:00 175/88 (117) 01/08/18 04:25 98.0 85 18 192/88 (122) 97 01/08/18 03:14 18 01/08/18 00:23 97.9 93 18 175/85 (115) 95 01/07/18 23:47 101 01/07/18 22:13 Room Air 01/07/18 20:09 98.2 103 19 136/75 (95) 98 01/07/18 19:52 89 01/07/18 16:00 97.9 92 18 154/87 (109) 94 01/07/18 15:20 77 01/07/18 13:20 01/07/18 11:58 97.9 94 17 156/74 (101) 93 I/O 01/07/18 01/07/18 01/07/18 01/08/18 01/08/18 01/08/18 07:00 15:00 23:00 07:00 15:00 23:00 Intake Total 0 ml 0 ml 675 ml 480 ml Output Total 400 ml Balance -400 ml 0 ml 675 ml 480 ml Intake Oral 0 ml 675 ml 480 ml IV Total 0 ml 0 ml Output Urine Total 400 ml # Voids 3 4 # Bowel Movements 0 5 0 Result Diagram: 01/08/1821701/08/18 0218 Imaging Last Impressions Small Bowel X-Ray 01/07/18 0600 Signed Impressions: CONCLUSION: No abnormality identified on this exam. GI Bleed Scan Nuclear Medicine 01/07/18 0000 Signed Impressions: CONCLUSION: 1. No active GI bleed demonstrated. Renal Ultrasound 6/1/18 0000 Signed Impressions: CONCLUSION: 1. No evidence of hydronephrosis. 2. Cortical thinning in the left kidney. 3. No evidence of hydronephrosis. 4. Multiple bilateral simple appearing cyst. Chest X-Ray 01/05/18 1142 Signed Impressions: CONCLUSION: Minimal basilar atelectasis or scarring. Cardiomegaly. Qvrsdl-p-Hyvj in right a trium. Head CT 01/05/18 Signed Impressions: CONCLUSION: 1. Stable unremarkable noncontrast head CT. Femur X-Ray 01/05/18 Signed Impressions: CONCLUSION: No acute bony abnormality. Abdomen/Pelvis CT 01/05/18 Signed Impressions: CONCLUSION: 1. Multiple new sclerotic osseous lesions metastatic most characteristic of di sease. 2. The left kidney is now mildly atrophic with cortical scarring and multiple benign cysts. There is a tiny less than 1 mm nonobstructing right renal calcul us. 3. Nonobstructive, nonspecific bowel gas pattern which may represent a mild il eus and/or gastroenteritis.. Objective Remarks GENERAL: This is a well-nourished, well-developed patient, in no apparent distress. SKIN: Warm and dry HEENT: Normocephalic. Pupils equal round and reactive. Nose without bleeding. Airway patent. NECK: Trachea midline. No JVD. Supple. CARDIOVASCULAR: Regular rate and rhythm without murmurs, gallops, or rubs. RESPIRATORY: Clear to auscultation. Breath sounds equal bilaterally. No wheezes , rales, or rhonchi. GASTROINTESTINAL: Abdomen soft, non-tender, protuberant. Bowel Sounds normoactive x4. MUSCULOSKELETAL: Extremities without clubbing, cyanosis. Bilateral lower extremity trace edema. Right lower extremity decrease R OM secondary to pain, tender to flexion and extension NEUROLOGICAL: Awake and alert. Oriented to time, place, person. No focal neuro deficit. Moves all extremities. Normal speech. Procedures None A/P Problem List: (1) GI bleed ICD Code: K92.2 - Gastrointestinal hemorrhage, unspecified Status: Acute Assessment and Plan Patient is a 67-year-old male with history of prostate cancer, hypertension, a- fib who presented to ER with rectal bleed. Acute GI bleed: -Patient with bloody stools. -EGD/colonoscopy done. -Colonoscopy showed significant amount of fresh blood found throughout the entire colon. Retroflexion was not performed due to a narrow rectal vault. No active bleeding site identified but limited exam with blood covering the lumen. Plan for x-ray for small bowel follow-through. Recommend return in 2 months for colonoscopy -EGD showed normal esophagus. Bile gastritis in the gastric body, biopsy was performed, Billroth II anastomosis was found. Normal duodenal mucosa in the third part of the duodenum. Retroflexion was performed and was normal. Pending biopsy. -Continue PPI. Patient also received FFP and PRBC -Continue to monitor. No bleeding overnight. -Monitor H&H. H&H 8.4/23.4 today. Anemia secondary to acute blood loss from GI bleed: -Received transfusion -monitor H&H Acute kidney injury: Creatinine trending up. -IV fluids for hydration. -Renal ultrasound showed no evidence of hydronephrosis. Cortical thinning in the left kidney. No evidence of hydronephrosis. Multiple bilateral simple appearing cyst -Improved kidney function, possibly this is due to anemia, dehydration Atrial fibrillation: On Coumadin chronically. Coumadin is on hold. -GI when to restart Coumadin Hypertension: Blood pressure meds on hold at this time. -started amlodipine, hydralazine -Monitor BP trend DVT prophylaxis: SCDs. Avoid chemical prophylaxis secondary to GI bleed. Discharge Planning Plan to DC home when clinically improved and cleared by GI. Problem Qualifiers (1) GI bleed: Qualified Codes: K92.2 - Gastrointestinal hemorrhage, unspecified Alicia Peralta Jan 08, 2018 09:06
[2018-01-08] MEDS: predniSONE 5 MG TAB PO SCH ×2 (09:20→21:00)
[2018-01-08] MEDS: CHOLECALCIFEROL (VIT D3) 1000 UNIT TAB PO SCH (09:20)
[2018-01-08] MEDS: GABAPENTIN 300 MG CAP PO SCH ×2 (09:20→21:00)
[2018-01-08] MEDS: PANTOPRAZOLE SODIUM 40 MG VIAL IV PUSH SCH (09:21)
[2018-01-08 10:28] LABS: HEMATOCRIT 22.9 % (39.0-51.0)
[2018-01-08] MEDS: hydrALAZINE HCL 25 MG TAB PO SCH ×2 (13:45→21:00)
--- NOTE | 2018-01-08 14:33 | HHI.GIFU ---
Subjective Remarks Pt resting in bed Family at bedside No continued rectal bleeding On liquids and would like his diet advanced Denies nausea, vomiting, abdominal pain (Che Mas) Objective Vitals I&O Vital Signs Date Time Temp Pulse Resp B/P (MAP) Pulse Ox O2 Delivery O2 Flow Rate FiO2 01/08/18 12:10 148/82 (104) 01/08/18 11:57 98.4 76 18 171/83 (112) 94 01/08/18 08:00 98.3 84 18 147/66 (93) 93 01/08/18 06:49 83 01/08/18 06:00 175/88 (117) 01/08/18 04:25 98.0 85 18 192/88 (122) 97 01/08/18 03:14 18 01/08/18 00:23 97.9 93 18 175/85 (115) 95 01/07/18 23:47 101 01/07/18 22:13 Room Air 01/07/18 20:09 98.2 103 19 136/75 (95) 98 01/07/18 19:52 89 01/07/18 16:00 97.9 92 18 154/87 (109) 94 01/07/18 15:20 77 I/O 01/07/18 01/07/18 01/07/18 01/08/18 01/08/18 01/08/18 07:00 15:00 23:00 07:00 15:00 23:00 Intake Total 0 ml 0 ml 675 ml 480 ml Output Total 400 ml Balance -400 ml 0 ml 675 ml 480 ml Intake Oral 0 ml 675 ml 480 ml IV Total 0 ml 0 ml Output Urine Total 400 ml # Voids 3 4 # Bowel Movements 0 5 0 Laboratory Laboratory Tests Test 01/07/18 15:19 01/07/18 19:45 01/08/18 02:18 01/08/18 09:30 Hemoglobin 8.5 8.0 8.4 8.0 Hematocrit 24.6 23.3 23.4 22.9 Blood Urea Nitrogen 14 Creatinine 0.90 Random Glucose 102 Calcium Level 8.7 Sodium Level 142 Potassium Level 3.5 Chloride Level 104 Carbon Dioxide Level 28.1 Anion Gap 10 Estimat Glomerular Filtration Rate 84 Date/Time Source Procedure Growth Status 01/06/18 02:21 Stool Stool Cryptosporidium Exam Pending Received 01/06/18 02:21 Stool Stool Giardia Antigen (DANICA) Pending Received Imaging Last Impressions Small Bowel X-Ray 01/07/18 0600 Signed Impressions: CONCLUSION: No abnormality identified on this exam. GI Bleed Scan Nuclear Medicine 01/07/18 0000 Signed Impressions: CONCLUSION: 1. No active GI bleed demonstrated. Renal Ultrasound 01/06/18 0000 Signed Impressions: CONCLUSION: 1. No evidence of hydronephrosis. 2. Cortical thinning in the left kidney. 3. No evidence of hydronephrosis. 4. Multiple bilateral simple appearing cyst. Chest X-Ray 01/05/18 1142 Signed Impressions: CONCLUSION: Minimal basilar atelectasis or scarring. Cardiomegaly. [id number] in right a trium. Head CT 01/05/18 0000 Signed Impressions: CONCLUSION: 1. Stable unremarkable noncontrast head CT. Femur X-Ray 01/05/18 0000 Signed Impressions: CONCLUSION: No acute bony abnormality. Abdomen/Pelvis CT 01/05/18 0000 Signed Impressions: CONCLUSION: 1. Multiple new sclerotic osseous lesions metastatic most characteristic of di sease. 2. The left kidney is now mildly atrophic with cortical scarring and multiple benign cysts. There is a tiny less than 1 mm nonobstructing right renal calcul us. 3. Nonobstructive, nonspecific bowel gas pattern which may represent a mild il eus and/or gastroenteritis.. Physical Exam HEENT: Normocephalic; atraumatic CHEST: Even/unlabored ABDOMEN: Distended, semi-firm, bowel sounds active SKIN: Normal; no rash; no jaundice. 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 (Che Mas) Assessment and Plan Plan Assessment: - Rectal bleeding- three episodes since yesterday Associated lower abdominal pain, intermittent, described as aching H/H 11.1/32.7 Pt on Warfarin for A-fib- INR-3.3 Last colonoscopy 2-3 years ago and he thinks normal exam. Unsure if he has had previous EGD. Denies weight loss, acid reflux, heartburn, family history of colon cancer. Denies ETOH, rare cigarette Reports history of abdominal surgeries from [place] war- thinks shrapnel removed CT abdomen and pelvis WO IV contrast -->Multiple new sclerotic osseous lesions metastatic most characteristic of disease. The left kidney is now mildly atrophic with cortical scarring and multiple benign cysts. There is a tiny less than 1 mm nonobstructing right renal calculus. Nonobstructive, nonspecific bowel gas pattern which may represent a mild ileus and/or gastroenteritis. C Diff negative. Enteric pathogens stool negative. - Nausea with dry heaving- has been unable to bring anything up - Prostate cancer with bone metastasis- on oral chemo with plans for radiation in near future- follows oncologist at [facility] in [place] EGD --> Esophagus was normal. Bile gastritis in the gastric body, biopsy. Billroth 11 anastomosis. Normal duodenal mucosa in the 3rd part of the duodenum. Colonoscopy --> Significant amount of blood throughout the entire examined colon. Narrow rectal vault. No active bleeding site identified but limited exam with blood covering lumen (01/07) Pt continues to have rectal bleeding, reports three episodes today. Hgb remains about the same despite one of PRBCs yesterday. (01/08) Pt denies continued rectal bleeding overnight. H/H has remained stable overnight. NM bleeding scan noted --> No active GI bleed demonstrated. Plan: Advance diet Monitor H/H Transfuse as needed Further recommendations based on clinical course and results of above Pt has been seen and examined by myself and Dr. Moore and this note is written on his behalf (Che Mas) Physician Comments Will follow up with you, no active bleeding at this time. Further recommendations to follow. (Collette Moore MD) Che Mas Jan 08, 2018 14:33 Collette Moore MD Jan 08, 2018 14:38
[2018-01-09] VITALS (9 sets, daily range): BP systolic 133–178; BP diastolic 72–115; PULSE 81–105; RESP 16–19; TEMP 97.3–98.3; O2SAT 94–97
[2018-01-09] MEDS: HYDROmorphone HCL PF 0.5 MG/0.5 ML SYRINGE IV PUSH PRN ×2 (04:08→09:23)
[2018-01-09] MEDS: BACLOFEN 10 MG TAB PO SCH ×3 (05:18→23:18)
[2018-01-09] MEDS: hydrALAZINE HCL 25 MG TAB PO SCH ×3 (05:18→23:18)
[2018-01-09 05:46] LABS: HEMATOCRIT 22.7 % (39.0-51.0); HEMOGLOBIN 7.9 GM/DL (13.0-17.0); MEAN CELL VOLUME 91.8 FL (80.0-100.0); MEAN CORPUSCULAR HGB CONC 34.8 % (32.0-36.0); PLATELET COUNT 214 TH/MM3 (150-450); RED BLOOD COUNT 2.47 MIL/MM3 (4.50-5.90); RED CELL DISTRIBUTION WIDTH 16.1 % (11.6-17.2); WHITE BLOOD COUNT 6.9 TH/MM3 (4.0-11.0)
[2018-01-09 06:09] LABS: BICARBONATE 25.5 MEQ/L (21.0-32.0); CALCIUM 8.8 MG/DL (8.5-10.1); CREATININE 0.79 MG/DL (0.60-1.30); MAGNESIUM 2.1 MG/DL (1.5-2.5)
[2018-01-09 06:10] LABS: PHOSPHORUS 2.2 MG/DL (2.5-4.9)
[2018-01-09] MEDS: predniSONE 5 MG TAB PO SCH ×2 (09:14→20:26)
[2018-01-09] MEDS: GABAPENTIN 300 MG CAP PO SCH ×2 (09:14→20:26)
[2018-01-09] MEDS: CHOLECALCIFEROL (VIT D3) 1000 UNIT TAB PO SCH (09:14)
[2018-01-09] MEDS: PANTOPRAZOLE SODIUM 40 MG VIAL IV PUSH SCH (09:20)
--- NOTE | 2018-01-09 10:55 | HHI.PR ---
Subjective Remarks Complaining of right upper leg pain this has been going on for more than 4 weeks. He does not remember injuring that area. He has not had any bloody stools or black stools overnight. Objective Vitals Vital Signs Date Time Temp Pulse Resp B/P (MAP) Pulse Ox O2 Delivery O2 Flow Rate FiO2 01/09/18 08:00 98.3 100 18 151/100 (117) 96 01/09/18 03:59 98.1 81 18 133/98 (110) 95 01/09/18 03:58 84 01/09/18 00:57 176/88 (117) 01/08/18 23:53 90 01/08/18 23:13 98.5 81 18 195/93 (127) 92 01/08/18 21:00 Room Air 01/08/18 20:58 98.2 88 19 148/71 (96) 95 01/08/18 19:51 82 01/08/18 16:00 97.9 80 18 126/76 (93) 94 01/08/18 12:10 148/82 (104) 01/08/18 11:57 98.4 76 18 171/83 (112) 94 I/O 01/08/18 01/08/18 01/08/18 01/09/18 01/09/18 01/09/18 07:00 15:00 23:00 07:00 15:00 23:00 Intake Total 480 ml 1020 ml Balance 480 ml 1020 ml Intake Oral 480 ml 1020 ml # Voids 4 1 # Bowel Movements 0 Result Diagram: 01/09/18 0530 01/09/18 0530 Objective Remarks GENERAL: This is a well-nourished, well-developed patient, in no apparent distress. CARDIOVASCULAR: Regular rate and rhythm RESPIRATORY: Clear to auscultation. Breath sounds equal bilaterally. No wheezes , rales, or rhonchi. GASTROINTESTINAL: Abdomen soft, non-tender, nondistended. Normal active bowel sounds MUSCULOSKELETAL: Tenderness over palpation of the right posterior upper thigh NEURO: Alert & Oriented x2 to person, place, Moves all ext x4 Procedures None A/P Problem List: (1) GI bleed ICD Code: K92.2 - Gastrointestinal hemorrhage, unspecified Status: Acute Assessment and Plan Patient is a 67-year-old male with history of prostate cancer, hypertension, a- fib who presented to ER with rectal bleed. Acute GI bleed: -Patient with resolving bloody stools and states no active bleeding overnight. -EGD/colonoscopy done. -Colonoscopy showed significant amount of fresh blood found throughout the entire colon. Retroflexion was not performed due to a narrow rectal vault. No active bleeding site identified but limited exam with blood covering the lumen. Plan for x-ray for small bowel follow-through. Recommend return in 2 months for colonoscopy -EGD showed normal esophagus. Bile gastritis in the gastric body, biopsy was performed, Billroth II anastomosis was found. Normal duodenal mucosa in the third part of the duodenum. Retroflexion was performed and was normal. Pending biopsy. -Continue PPI. Patient also received FFP and PRBC -Continue to monitor. No bleeding overnight. -Monitor H&H. H&H 7.9 today. Consider transfusion due to previous history of atrial fibrillation Anemia secondary to acute blood loss from GI bleed: -Received transfusion 1 unit when today's hemoglobin 7.9. We will transfuse another 1 unit of packed red blood cells today -monitor H&H Acute kidney injury: Creatinine has trended down and improved and resolved -IV fluids for hydration. -Renal ultrasound showed no evidence of hydronephrosis. Cortical thinning in the left kidney. No evidence of hydronephrosis. Multiple bilateral simple appearing cyst -Improved kidney function, possibly this is due to anemia, dehydration Atrial fibrillation: On Coumadin chronically. Coumadin is on hold due to his GI bleed, will start metoprolol for rate control and better blood pressure control. -GI when to restart Coumadin Hypertension: Restart her home blood pressure medication. -started amlodipine, hydralazine -Monitor BP trend Right thigh upper leg pain - ultrasound Doppler to rule out any underlying DVT. DVT prophylaxis: SCDs. Avoid chemical prophylaxis secondary to GI bleed. Discharge Planning Likely home with home health care when medically stable. Problem Qualifiers (1) GI bleed: Qualified Codes: K92.2 - Gastrointestinal hemorrhage, unspecified Bertha Laws MD Jan 09, 2018 10:55
[2018-01-09] MEDS ORDERED: SODIUM CHLOR 0.9% 250 ML INJ 250 ML IV ONE (11:00)
--- NOTE | 2018-01-09 12:43 | RADRPT ---
EXAM DATE: 01/09/2018 12:40 PM EDT AGE/SEX: 67 years / Male INDICATIONS: Right leg pain. CLINICAL DATA: This is the patient's initial encounter. Patient reports that signs and symptoms have been present for 4 - 6 days and indicates a pain score of 10/10. MEDICAL/SURGICAL HISTORY: Carcinoma, prostatic. Carcinoma, bone. Pulmonary embolism. HTN. Ulce r. Melena. . Shrapnel removed from legs. Disc repair. Numerous surgeries to right arm. Left arm cassius rae. Radiation therapy. Chemotherapy. COMPARISON: No prior [facility] exams available for comparison. No external comparison. TECHNIQUE: Venous ultrasound of both lower extremities was performed from the inguinal ligament to t he proximal calf. Real-time, color Doppler and spectral tracing, compression and augmentation techni ques were used. FINDINGS: There is normal compressibility of the deep venous system from the inguinal region to the proximal ca lf. No echogenic clot is seen in the lumen of the common femoral, femoral, popliteal, and posterior tibial veins. There is a normal response of the venous system to proximal and distal augmentation an d respiration. CONCLUSION: The study is negative for lower extremity deep venous thrombosis. Electronically signed by: Manolo Garcia MD 01/09/2018 12:41 PM EDT
--- NOTE | 2018-01-09 14:11 | HHI.GIFU ---
Subjective Remarks Pt resting in bed at bedside No BM today Pt has been tolerating PO Per he seems increasingly confused Pt with no GI complaints at this time (Che Mas) Objective Vitals I&O Vital Signs Date Time Temp Pulse Resp B/P (MAP) Pulse Ox O2 Delivery O2 Flow Rate FiO2 01/09/18 08:00 98.3 100 18 151/100 (117) 96 01/09/18 03:59 98.1 81 18 133/98 (110) 95 01/09/18 03:58 84 01/09/18 00:57 176/88 (117) 01/08/18 23:53 90 01/08/18 23:13 98.5 81 18 195/93 (127) 92 01/08/18 21:00 Room Air 01/08/18 20:58 98.2 88 19 148/71 (96) 95 01/08/18 19:51 82 01/08/18 16:00 97.9 80 18 126/76 (93) 94 I/O 01/08/18 01/08/18 01/08/18 01/09/18 01/09/18 01/09/18 07:00 15:00 23:00 07:00 15:00 23:00 Intake Total 480 ml 1020 ml Balance 480 ml 1020 ml Intake Oral 480 ml 1020 ml # Voids 4 1 # Bowel Movements 0 Laboratory Laboratory Tests Test 01/09/18 05:30 White Blood Count 6.9 Red Blood Count 2.47 Hemoglobin 7.9 Hematocrit 22.7 Mean Corpuscular Volume 91.8 Mean Corpuscular Hemoglobin 32.0 Mean Corpuscular Hemoglobin Concent 34.8 Red Cell Distribution Width 16.1 Platelet Count 214 Mean Platelet Volume 8.0 Blood Urea Nitrogen 10 Creatinine 0.79 Random Glucose 115 Calcium Level 8.8 Phosphorus Level 2.2 Magnesium Level 2.1 Sodium Level 138 Potassium Level 3.5 Chloride Level 104 Carbon Dioxide Level 25.5 Anion Gap 9 Estimat Glomerular Filtration Rate 97 Date/Time Source Procedure Growth Status 01/06/18 02:21 Stool Stool Cryptosporidium Exam - Final NEGATIVE - NO CRYPTOSPORIDIUM ANTIGEN... Complete 01/06/18 02:21 Stool Stool Giardia Antigen (DANICA) - Final NEGATIVE - NO GIARDIA ANTIGEN DETECTE... Complete Imaging Last Impressions Lower Extremity Ultrasound 6/4/18 0000 Signed Impressions: CONCLUSION: The study is negative for lower extremity deep venous thrombosis. Small Bowel X-Ray 01/07/18 0600 Signed Impressions: CONCLUSION: No abnormality identified on this exam. GI Bleed Scan Nuclear Medicine 01/07/18 Signed Impressions: CONCLUSION: 1. No active GI bleed demonstrated. Renal Ultrasound 01/06/18 Signed Impressions: CONCLUSION: 1. No evidence of hydronephrosis. 2. Cortical thinning in the left kidney. 3. No evidence of hydronephrosis. 4. Multiple bilateral simple appearing cyst. Chest X-Ray 01/05/18 1142 Signed Impressions: CONCLUSION: Minimal basilar atelectasis or scarring. Cardiomegaly. [id number] in right a trium. Head CT 01/05/18 Signed Impressions: CONCLUSION: 1. Stable unremarkable noncontrast head CT. Femur X-Ray 01/05/18 Signed Impressions: CONCLUSION: No acute bony abnormality. Abdomen/Pelvis CT 01/05/18 Signed Impressions: CONCLUSION: 1. Multiple new sclerotic osseous lesions metastatic most characteristic of di sease. 2. The left kidney is now mildly atrophic with cortical scarring and multiple benign cysts. There is a tiny less than 1 mm nonobstructing right renal calcul us. 3. Nonobstructive, nonspecific bowel gas pattern which may represent a mild il eus and/or gastroenteritis.. Physical Exam HEENT: Normocephalic; atraumatic CHEST: Even/unlabored ABDOMEN: Distended, semi-firm, bowel sounds active SKIN: Normal; no rash; no jaundice. 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 (Che Mas) Assessment and Plan Plan Assessment: - Rectal bleeding- three episodes since yesterday Associated lower abdominal pain, intermittent, described as aching H/H 11.1/32.7 Pt on Warfarin for A-fib- INR-3.3 Last colonoscopy 2-3 years ago and he thinks normal exam. Unsure if he has had previous EGD. Denies weight loss, acid reflux, heartburn, family history of colon cancer. Denies ETOH, rare cigarette Reports history of abdominal surgeries from [place] war- thinks shrapnel removed CT abdomen and pelvis WO IV contrast -->Multiple new sclerotic osseous lesions metastatic most characteristic of disease. The left kidney is now mildly atrophic with cortical scarring and multiple benign cysts. There is a tiny less than 1 mm nonobstructing right renal calculus. Nonobstructive, nonspecific bowel gas pattern which may represent a mild ileus and/or gastroenteritis. C Diff negative. Enteric pathogens stool negative. - Nausea with dry heaving- has been unable to bring anything up - Prostate cancer with bone metastasis- on oral chemo with plans for radiation in near future- follows oncologist at [facility] in [place] EGD --> Esophagus was normal. Bile gastritis in the gastric body, biopsy. Billroth 11 anastomosis. Normal duodenal mucosa in the 3rd part of the duodenum. Colonoscopy --> Significant amount of blood throughout the entire examined colon. Narrow rectal vault. No active bleeding site identified but limited exam with blood covering lumen (01/07) Pt continues to have rectal bleeding, reports three episodes today. Hgb remains about the same despite one of PRBCs yesterday. (01/08) Pt denies continued rectal bleeding overnight. H/H has remained stable overnight. NM bleeding scan noted --> No active GI bleed demonstrated. (01/09) No BM yet today. H/H remains stable overnight. Tolerating regular diet Plan: JEF Monitor H/H Notify GI if any continued bleeding EGD biopsy pending Repeat colonoscopy outpatient GI will sign off, please reconsult as needed Have pt follow up with GI after discharge Pt has been seen and examined by myself and Dr. Moore and this note is written on his behalf (Che Mas) Physician Comments As above, no active bleeding over the last 49 hours and stable HH. Will need out patient follow up and possible repeating colonoscopy. Please notify us if needed again. (Collette Moore MD) Che Mas Jan 09, 2018 14:11 Collette Moore MD Jan 09, 2018 14:47
[2018-01-09] MEDS: METOPROLOL TARTRATE 25 MG TAB PO SCH ×2 (14:42→20:26)
[2018-01-09] MEDS ORDERED: ACETAMINOPHEN 325 MG TAB PO PRN (15:30)
[2018-01-09] MEDS: ATENOLOL/CHLORTHALIDONE 50/25 TAB PO SCH ×2 (15:30→23:18)
[2018-01-09] MEDS ORDERED: NALOXONE HCL 0.4 MG/ML AMP IV PUSH PRN (15:30)
[2018-01-09] MEDS ORDERED: MORPHINE SULFATE 4 MG/ML INJ IV PRN ×2 (15:45)
[2018-01-09] MEDS: POTASSIUM CHLORIDE 20 MEQ CONTROLLED RELEASE TAB PO SCH (20:25)
[2018-01-09] MEDS: MORPHINE SULFATE 15 MG TAB PO PRN (20:27)
[2018-01-09] MEDS ORDERED: ATENOLOL/CHLORTHALIDONE 50/25 TAB PO SCH (21:00)
[2018-01-09] MEDS: SODIUM CHLOR 0.9% 1000 ML INJ 1,000 ML IV SCH ×2 (23:50)
[2018-01-10] VITALS: BP 190/81; PULSE 93; RESP 18; TEMP 99.5; O2SAT 96
[2018-01-10 04:00] VITALS: BP 137/74; PULSE 70; RESP 18; TEMP 98.8; O2SAT 95
[2018-01-10 04:03] LABS: HEMOGLOBIN 9.8 GM/DL (13.0-17.0)
[2018-01-10 04:30] LABS: BICARBONATE 26.4 MEQ/L (21.0-32.0); CALCIUM 9.5 MG/DL (8.5-10.1); CREATININE 0.98 MG/DL (0.60-1.30)
[2018-01-10] MEDS: BACLOFEN 10 MG TAB PO SCH ×3 (05:34→23:17)
[2018-01-10] MEDS: hydrALAZINE HCL 25 MG TAB PO SCH ×3 (05:34→23:17)
[2018-01-10] MEDS: MORPHINE SULFATE 15 MG TAB PO PRN (05:35)
[2018-01-10] MEDS: SODIUM CHLOR 0.9% 1000 ML INJ 1,000 ML IV SCH ×2 (06:00→16:00)
[2018-01-10 08:00] VITALS: BP 156/80; PULSE 69; RESP 18; TEMP 98.6; O2SAT 96
[2018-01-10] MEDS: GABAPENTIN 300 MG CAP PO SCH ×2 (09:49→19:44)
[2018-01-10] MEDS: predniSONE 5 MG TAB PO SCH ×2 (09:49→19:42)
[2018-01-10] MEDS: CHOLECALCIFEROL (VIT D3) 1000 UNIT TAB PO SCH (09:49)
[2018-01-10] MEDS: PANTOPRAZOLE SODIUM 40 MG VIAL IV PUSH SCH (09:49)
[2018-01-10] MEDS: METOPROLOL TARTRATE 25 MG TAB PO SCH ×2 (09:50→19:44)
[2018-01-10] MEDS: POTASSIUM CHLORIDE 20 MEQ CONTROLLED RELEASE TAB PO SCH ×2 (09:50→19:42)
[2018-01-10] MEDS: ATENOLOL/CHLORTHALIDONE 50/25 TAB PO SCH ×2 (09:50→19:43)
[2018-01-10] MEDS ORDERED: PROT40TA PO (11:09)
--- NOTE | 2018-01-10 11:20 | HHI.DS ---
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 he says that when he went to bathroom last night he passed a large amount of fresh blood. he had two more episodes of rectal bleed since then. he says that he was feeling dizzy and had some lower abdominal pain along with rectal bleed.he denies any chest pain, sob, nausea or vomiting. he's on coumadin therapy. he says that he had a colonoscopy about two years ago.he's also complaining of pain to the right lower extremity which he relates to bone metastasis. CBC/BMP: 01/10/18 0310 01/10/18 0310 Significant Findings Laboratory Tests Test 01/07/18 15:19 01/07/18 19:45 01/08/18 02:18 01/08/18 09:30 Hemoglobin 8.5 GM/DL (13.0-17.0) 8.0 GM/DL (13.0-17.0) 8.4 GM/DL (13.0-17.0) 8.0 GM/DL (13.0-17.0) Hematocrit 24.6 % (39.0-51.0) 23.3 % (39.0-51.0) 23.4 % (39.0-51.0) 22.9 % (39.0-51.0) Estimat Glomerular Filtration Rate 84 ML/MIN (>89) Test 01/09/18 05:30 01/10/18 03:10 Red Blood Count 2.47 MIL/MM3 (4.50-5.90) Hemoglobin 7.9 GM/DL (13.0-17.0) 9.8 GM/DL (13.0-17.0) Hematocrit 22.7 % (39.0-51.0) 28.0 % (39.0-51.0) Random Glucose 115 MG/DL (74-106) 132 MG/DL (74-106) Phosphorus Level 2.2 MG/DL (2.5-4.9) Estimat Glomerular Filtration Rate 76 ML/MIN (>89) Imaging Last Impressions Lower Extremity Ultrasound 01/09/18 0000 Signed Impressions: CONCLUSION: The study is negative for lower extremity deep venous thrombosis. Small Bowel X-Ray 01/07/18 0600 Signed Impressions: CONCLUSION: No abnormality identified on this exam. GI Bleed Scan Nuclear Medicine 01/07/18 Signed Impressions: CONCLUSION: 1. No active GI bleed demonstrated. Renal Ultrasound 01/06/18 0000 Signed Impressions: CONCLUSION: 1. No evidence of hydronephrosis. 2. Cortical thinning in the left kidney. 3. No evidence of hydronephrosis. 4. Multiple bilateral simple appearing cyst. Chest X-Ray 01/05/18 1142 Signed Impressions: CONCLUSION: Minimal basilar atelectasis or scarring. Cardiomegaly. [id number] in right a trium. Head CT 01/05/18 Signed Impressions: CONCLUSION: 1. Stable unremarkable noncontrast head CT. Femur X-Ray 01/05/18 Signed Impressions: CONCLUSION: No acute bony abnormality. Abdomen/Pelvis CT 01/05/18 Signed Impressions: CONCLUSION: 1. Multiple new sclerotic osseous lesions metastatic most characteristic of di sease. 2. The left kidney is now mildly atrophic with cortical scarring and multiple benign cysts. There is a tiny less than 1 mm nonobstructing right renal calcul us. 3. Nonobstructive, nonspecific bowel gas pattern which may represent a mild il eus and/or gastroenteritis.. PE at Discharge GENERAL: This is a well-nourished, well-developed patient, in no apparent distress. CARDIOVASCULAR: Regular rate and rhythm RESPIRATORY: Clear to auscultation. Breath sounds equal bilaterally. No wheezes , rales, or rhonchi. GASTROINTESTINAL: Abdomen soft, non-tender, nondistended. Normal active bowel sounds MUSCULOSKELETAL: Tenderness over palpation of the right posterior upper thigh NEURO: Alert & Oriented x2 to person, place, Moves all ext x4 Hospital Course These are the medical issues addressed during this hospitalization: Patient is a 67-year-old male with history of prostate cancer, hypertension, a- fib who presented to ER with rectal bleed. Acute GI bleed: -Patient with resolving bloody stools and states no active bleeding overnight. -EGD/colonoscopy done. -Colonoscopy showed significant amount of fresh blood found throughout the entire colon. Retroflexion was not performed due to a narrow rectal vault. No active bleeding site identified but limited exam with blood covering the lumen. Plan for x-ray for small bowel follow-through. Recommend return in 2 months for colonoscopy -EGD showed normal esophagus. Bile gastritis in the gastric body, biopsy was performed, Billroth II anastomosis was found. Normal duodenal mucosa in the third part of the duodenum. Retroflexion was performed and was normal. Pending biopsy. -Continue PPI. Patient also received 4 units of FFP and 2 units of PRBC transfused during the hospitalization -Continue to monitor. No bleeding overnight. -Monitor H&H. Hemoglobin on discharge is 9.8 and stable. Anemia secondary to acute blood loss from GI bleed: -Received a total of transfusion 2 unit when today's hemoglobin 9.8. Acute kidney injury: Creatinine has trended down and improved and resolved -IV fluids for hydration. -Renal ultrasound showed no evidence of hydronephrosis. Cortical thinning in the left kidney. No evidence of hydronephrosis. Multiple bilateral simple appearing cyst -Improved kidney function, possibly this is due to anemia, dehydration Acute encephalopathy likely due to drugs and presenting uremia due to acute kidney injury-patient's mental status has improved significantly he is alert and oriented 3 today. He was given Dilaudid although he does well on morphine IR 15 mg twice daily as needed for chronic bone pain per his at bedside. Atrial fibrillation: On Coumadin chronically. Coumadin is on hold due to his GI bleed, will start metoprolol for rate control and better blood pressure control. -GI to decide and recommend when. At this time will recommend being off to restart Coumadin of Coumadin for at least 2 weeks until seen by GI. Hypertension: Restart her home blood pressure medication. -started amlodipine, hydralazine -Monitor BP trend Right thigh upper leg pain - ultrasound Doppler to rule out any underlying DVT. DVT prophylaxis: SCDs. Avoid chemical prophylaxis secondary to GI bleed. Pt Condition on Discharge: Good Discharge Disposition: LONGTERM with [facility] Discharge Instructions DIET: Follow Instructions for: Heart Healthy Diet Activities you can perform: Regular-No Restrictions Follow up Referrals: Gastroenterology - 2 Weeks with Collette Moore MD PCP Follow-up - 1 Week New Medications: Pantoprazole (Protonix) 40 Mg Tab 40 MG PO DAILY for Ulcer Prevention, #30 TAB 0 Refills Continued Medications: Amlodipine (Amlodipine) 10 Mg Tab 10 MG PO DAILY for Blood Pressure Management, #30 TAB 0 Refills Atenolol/Chlorthalidone (Atenolol-Chlorthalidone 50-25) 50 Mg-25 Mg Tablet 0.5 TAB PO BID for Blood Pressure Management Calcium Carbonate-Cholecalciferol (Calcium/Vitamin D) 600-400 Mg-Unit Cap 1 CAP PO DAILY, CAP Carboxymethylcellulose Sodium 0.5% Opth (Refresh Plus Unit-Dose 0.5% Opth) 0.5% Drops 1 DROP EACH EYE BID PRN for DRY EYE, #1 BOX 0 Refills Cholecalciferol (Vitamin D3) 1,000 Unit Tab 1000 UNITS PO DAILY for Nutritional Supplement, #1 BOTTLE 0 Refills Cyanocobalamin Inj (Cyanocobalamin Inj) 1,000 Mcg/Ml Inj 1000 MCG IM MONTHLY for Nutritional Supplement, #1 VIAL 0 Refills Enzalutamide (Xtandi) 40 Mg Cap 160 MG PO DAILY for Chemotherapy Management, #90 CAP 0 Refills Ferrous Sulfate (Ferrous Sulfate) 325 Mg (65 Mg Iron) Tablet 325 MG PO BIDPC for Nutritional Supplement, #60 TAB 0 Refills Gabapentin (Gabapentin) 300 Mg Cap 600 MG PO BID for Pain Management, #60 CAP 0 Refills Hydralazine HCl (Hydralazine HCl) 25 Mg Tablet 25 MG PO Q8HR for Blood Pressure Management, #90 TAB 0 Refills Potassium Chloride ER (Potassium Chloride ER) 20 Meq Tab 40 MEQ PO BID for Electrolyte Replacement, #60 TAB 0 Refills Prednisone (Prednisone) 5 Mg Tab 5 MG PO BID for Inflammation, TAB 0 Refills Discontinued Medications: Diclofenac Topical (Diclofenac Topical) 1% Gel 1 APPLIC TOPICAL BID for Pain Management, #100 GM 0 Refills Warfarin (Warfarin) 5 Mg Tab 5 MG PO SuTuWeThFrSa for Blood Clot Prevention, #30 TAB 0 Refills Take 1 tablet (5mg) daily on Tuesday,Tuesday,Tuesday,,Tuesday and Tuesday Warfarin (Warfarin) 5 Mg Tab 7.5 MG PO TUESDAY for Blood Clot Prevention, #30 TAB 0 Refills Take 1&1/2 tablets (7.5mg) daily on Mondays Bertha Laws MD Jan 10, 2018 11:20
[2018-01-10 12:00] VITALS: BP 127/58; PULSE 55; RESP 18; TEMP 97.3; O2SAT 94
--- NOTE | 2018-01-10 12:19 | HHI.PR ---
Subjective Remarks Patient states that his pain is much better. He is feeling better. He has not seen any rectal bleeding. He feels hazy at times but felt much better. Objective Vitals Vital Signs Date Time Temp Pulse Resp B/P (MAP) Pulse Ox O2 Delivery O2 Flow Rate FiO2 01/10/18 08:00 98.6 69 18 156/80 (105) 96 01/10/18 04:00 98.8 70 18 137/74 (95) 95 01/10/18 00:00 99.5 93 18 190/81 (117) 96 01/09/18 20:34 98.3 101 16 178/85 94 01/09/18 17:45 97.6 85 16 171/86 95 01/09/18 17:30 97.3 82 19 138/72 95 01/09/18 16:00 97.3 82 19 138/72 (94) 95 I/O 01/09/18 01/09/18 01/09/18 01/10/18 01/10/18 01/10/18 07:00 15:00 23:00 07:00 15:00 23:00 Intake Total 412 ml 200 ml Balance 412 ml 200 ml Intake Oral 200 ml Packed Cells 400 ml Blood Product IV Normal Saline Flush 12 ml # Voids 3 3 Result Diagram: 01/10/18 0310 01/10/18 0310 Objective Remarks GENERAL: This is a well-nourished, well-developed patient, in no apparent distress. CARDIOVASCULAR: Regular rate and rhythm RESPIRATORY: Clear to auscultation. Breath sounds equal bilaterally. No wheezes , rales, or rhonchi. GASTROINTESTINAL: Abdomen soft, non-tender, nondistended. Normal active bowel sounds MUSCULOSKELETAL: Tenderness over palpation of the right posterior upper thigh NEURO: Alert & Oriented x2 to person, place, Moves all ext x4 Procedures None A/P Problem List: (1) GI bleed ICD Code: K92.2 - Gastrointestinal hemorrhage, unspecified Status: Acute (2) Anticoagulated on Coumadin ICD Code: Z51.81 - Encounter for therapeutic drug level monitoring; Z79.01 - MCFP (current) use of anticoagulants Status: Chronic (3) Gastritis ICD Code: K29.70 - Gastritis, unspecified, without bleeding Status: Acute (4) Rectal ulcer ICD Code: K62.6 - Ulcer of anus and rectum Status: Acute (5) Drug-induced encephalopathy ICD Code: G92 - Toxic encephalopathy Status: Resolved Assessment and Plan Patient is a 67-year-old male with history of prostate cancer, hypertension, a- fib who presented to ER with rectal bleed. Acute GI bleed: -Patient with resolving bloody stools and states no active bleeding overnight. -EGD/colonoscopy done. -Colonoscopy showed significant amount of fresh blood found throughout the entire colon. Retroflexion was not performed due to a narrow rectal vault. No active bleeding site identified but limited exam with blood covering the lumen. Plan for x-ray for small bowel follow-through. Recommend return in 2 months for colonoscopy -EGD showed normal esophagus. Bile gastritis in the gastric body, biopsy was performed, Billroth II anastomosis was found. Normal duodenal mucosa in the third part of the duodenum. Retroflexion was performed and was normal. Pending biopsy. -Continue PPI. Patient also received 4 units of FFP and 2 units of PRBC transfused during the hospitalization -Continue to monitor. No bleeding overnight. -Monitor H&H. Hemoglobin on discharge is 9.8 and stable. Anemia secondary to acute blood loss from GI bleed: -Received a total of transfusion 2 unit and today's hemoglobin 9.8. Acute kidney injury: Creatinine has trended down and improved and resolved -IV fluids for hydration. -Renal ultrasound showed no evidence of hydronephrosis. Cortical thinning in the left kidney. No evidence of hydronephrosis. Multiple bilateral simple appearing cyst -Improved kidney function, possibly this is due to anemia, dehydration Acute encephalopathy likely due to drugs and presenting uremia due to acute kidney injury-patient's mental status has improved significantly he is alert and oriented 3 today. He was given Dilaudid although he does well on morphine IR 15 mg twice daily as needed for chronic bone pain per his at bedside. Switch his pain medication to morphine. Atrial fibrillation: On Coumadin chronically. Coumadin is on hold due to his GI bleed, will start metoprolol for rate control and better blood pressure control. -GI to decide and recommend when. At this time will recommend being off to restart Coumadin of Coumadin for at least 2 weeks until seen by GI. Hypertension: Restart her home blood pressure medication. -started amlodipine, hydralazine -Monitor BP trend Right thigh upper leg pain - ultrasound Doppler showed no DVT. Patient does have a history of chronic bone pain per his . Generalized weakness - PT consult evaluation DVT prophylaxis: SCDs. Avoid chemical prophylaxis secondary to GI bleed. Discharge Planning Patient's at bedside states she could not care for him at this time and prefers him to go to prison facility versus [facility] to get stronger prior to taking him home. Discharge to prison facility versus [facility] pending placement in a.m. Problem Qualifiers (1) GI bleed: Qualified Codes: K92.2 - Gastrointestinal hemorrhage, unspecified Bertha Laws MD Jan 10, 2018 12:19
[2018-01-10] MEDS ORDERED: PILL SPLITTER OTHER PRN (13:45)
[2018-01-10 16:00] VITALS: BP 154/78; PULSE 57; RESP 18; TEMP 97.8; O2SAT 97
[2018-01-10 20:00] VITALS: BP 147/81; PULSE 60; RESP 16; TEMP 99.1; O2SAT 96
[2018-01-10] MEDS: MELATONIN 5 MG TAB PO PRN (23:17)
[2018-01-11 00:01] VITALS: BP 140/76; PULSE 67; RESP 18; TEMP 98.3; O2SAT 96
[2018-01-11] MEDS: SODIUM CHLOR 0.9% 1000 ML INJ 1,000 ML IV SCH ×2 (01:16→12:00)
[2018-01-11] MEDS: MORPHINE SULFATE 15 MG TAB PO PRN (03:35)
[2018-01-11 04:00] VITALS: BP 123/82; PULSE 60; RESP 17; TEMP 97.7; O2SAT 95
[2018-01-11] MEDS: BACLOFEN 10 MG TAB PO SCH ×2 (05:45→15:25)
[2018-01-11] MEDS: hydrALAZINE HCL 25 MG TAB PO SCH ×2 (05:46→15:25)
[2018-01-11] MEDS: PANTOPRAZOLE SODIUM 40 MG VIAL IV PUSH SCH (09:05)
[2018-01-11] MEDS: GABAPENTIN 300 MG CAP PO SCH (09:05)
[2018-01-11] MEDS: ATENOLOL/CHLORTHALIDONE 50/25 TAB PO SCH (09:06)
[2018-01-11] MEDS: predniSONE 5 MG TAB PO SCH (09:06)
[2018-01-11] MEDS: CHOLECALCIFEROL (VIT D3) 1000 UNIT TAB PO SCH (09:06)
[2018-01-11] MEDS: POTASSIUM CHLORIDE 20 MEQ CONTROLLED RELEASE TAB PO SCH (09:06)
[2018-01-11] MEDS: METOPROLOL TARTRATE 25 MG TAB PO SCH (09:06)
[2018-01-11] MEDS ORDERED: MORPHINE SULFATE 15 MG TAB PO PRN (10:45)
--- NOTE | 2018-01-11 11:04 | HHI.DS ---
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 he says that when he went to bathroom last night he passed a large amount of fresh blood. he had two more episodes of rectal bleed since then. he says that he was feeling dizzy and had some lower abdominal pain along with rectal bleed.he denies any chest pain, sob, nausea or vomiting. he's on coumadin therapy. he says that he had a colonoscopy about two years ago.he's also complaining of pain to the right lower extremity which he relates to bone metastasis. CBC/BMP: 01/10/18 0310 01/10/18 0310 Significant Findings Laboratory Tests Test 01/09/18 05:30 01/10/18 03:10 Red Blood Count 2.47 MIL/MM3 (4.50-5.90) Hemoglobin 7.9 GM/DL (13.0-17.0) 9.8 GM/DL (13.0-17.0) Hematocrit 22.7 % (39.0-51.0) 28.0 % (39.0-51.0) Random Glucose 115 MG/DL (74-106) 132 MG/DL (74-106) Phosphorus Level 2.2 MG/DL (2.5-4.9) Estimat Glomerular Filtration Rate 76 ML/MIN (>89) Imaging Last Impressions Lower Extremity Ultrasound 01/09/18 Signed Impressions: CONCLUSION: The study is negative for lower extremity deep venous thrombosis. Small Bowel X-Ray 01/07/18 0600 Signed Impressions: CONCLUSION: No abnormality identified on this exam. GI Bleed Scan Nuclear Medicine 01/07/18 Signed Impressions: CONCLUSION: 1. No active GI bleed demonstrated. Renal Ultrasound 01/06/18 Signed Impressions: CONCLUSION: 1. No evidence of hydronephrosis. 2. Cortical thinning in the left kidney. 3. No evidence of hydronephrosis. 4. Multiple bilateral simple appearing cyst. Chest X-Ray 01/05/18 1142 Signed Impressions: CONCLUSION: Minimal basilar atelectasis or scarring. Cardiomegaly. [id number] in right a trium. Head CT 01/05/18 Signed Impressions: CONCLUSION: 1. Stable unremarkable noncontrast head CT. Femur X-Ray 01/05/18 Signed Impressions: CONCLUSION: No acute bony abnormality. Abdomen/Pelvis CT 01/05/18 Signed Impressions: CONCLUSION: 1. Multiple new sclerotic osseous lesions metastatic most characteristic of di sease. 2. The left kidney is now mildly atrophic with cortical scarring and multiple benign cysts. There is a tiny less than 1 mm nonobstructing right renal calcul us. 3. Nonobstructive, nonspecific bowel gas pattern which may represent a mild il eus and/or gastroenteritis.. PE at Discharge GENERAL: elderly male, appears comfortable. CARDIOVASCULAR: Regular rate and rhythm RESPIRATORY: Clear to auscultation. Breath sounds equal bilaterally. No wheezes GASTROINTESTINAL: Abdomen soft, non-tender, nondistended. Normal active bowel sounds MUSCULOSKELETAL: Tenderness over palpation of the right posterior upper thigh. I am able to rotate his right lower ext w no pain. NEURO: Alert & Oriented x2 to person, place, Moves all ext x4 Pt update on day of discharge Pt complains of some right leg discomfort, per admitting note, this has been present since admission and this has been attributed to metastatic disease. He states that he feels a bit "shaky" and that mainly occurs whenever he grabs a cup and tries to drink from it. Pt states that he feels weaker as well and is not opposed to getting rehab before going home but then state he is unsure. He does tend to repeat himself a few times. Discussed w RN, is very insistant on pt getting pain meds. Apparently pt did get a dose IV 4mg morphine last night and got a dose po this morning, explaining pt's mild confusion. Hospital Course Patient is a 67-year-old male with history of prostate cancer, hypertension, a- fib who presented to ER with rectal bleed. Pt was evaluated by GI and underwent EGD/colonoscopy. Colonoscopy showed significant amount of fresh blood found throughout the entire colon. Retroflexion was not performed due to a narrow rectal vault. No active bleeding site identified but limited exam with blood covering the lumen. GI Recommended to return in 2 months for colonoscopy. GI bleeding scan didn't demonstrate any bleed. EGD showed normal esophagus. Bile gastritis in the gastric body, biopsy was performed, Billroth II anastomosis was found. Normal duodenal mucosa in the third part of the duodenum. Retroflexion was performed and was normal. Pending biopsy. -Continue PPI. s/p 4units FFP and 2 untis PRBC. Hb has been stable. Monitor as an outpatient Anemia secondary to acute blood loss from GI bleed: stable. no new bleeding reported. Acute kidney injury: resolved. s/p IV fluids for hydration. Renal ultrasound showed no evidence of hydronephrosis. Cortical thinning in the left kidney. No evidence of hydronephrosis. Multiple bilateral simple appearing cyst Atrial fibrillation: On Coumadin chronically. Coumadin is on hold due to his GI bleed, started on metoprolol for rate control and better blood pressure control. At this time will recommend being off Coumadin for at least 2 weeks until seen by GI and obtaining clearance from them. Right thigh upper leg pain - present on admission, thought to be to metastatic disease. ultrasound Doppler neg for DVT. DVT prophylaxis: SCDs. Avoid chemical prophylaxis secondary to GI bleed. Pt Condition on Discharge: Good Discharge Disposition: Discharge to SNF Discharge Time: > 30 minutes Discharge Instructions DIET: Follow Instructions for: Heart Healthy Diet Activities you can perform: Regular-No Restrictions Follow up Referrals: Gastroenterology - 2 Weeks with Collette Moore MD PCP Follow-up - 1 Week New Medications: Pantoprazole (Protonix) 40 Mg Tab 40 MG PO DAILY for Ulcer Prevention, #30 TAB 0 Refills Baclofen (Baclofen) 10 Mg Tab 10 MG PO Q8HR, #9 TAB Metoprolol Tartrate (Metoprolol Tartrate) 25 Mg Tab 25 MG PO Q12HR, #60 TAB Morphine IR (Morphine IR) 15 Mg Tab 15 MG PO Q12H PRN for PAIN 5 TO 10, #6 TAB Continued Medications: Amlodipine (Amlodipine) 10 Mg Tab 10 MG PO DAILY for Blood Pressure Management, #30 TAB 0 Refills Atenolol/Chlorthalidone (Atenolol-Chlorthalidone 50-25) 50 Mg-25 Mg Tablet 0.5 TAB PO BID for Blood Pressure Management Calcium Carbonate-Cholecalciferol (Calcium/Vitamin D) 600-400 Mg-Unit Cap 1 CAP PO DAILY, CAP Carboxymethylcellulose Sodium 0.5% Opth (Refresh Plus Unit-Dose 0.5% Opth) 0.5% Drops 1 DROP EACH EYE BID PRN for DRY EYE, #1 BOX 0 Refills Cholecalciferol (Vitamin D3) 1,000 Unit Tab 1000 UNITS PO DAILY for Nutritional Supplement, #1 BOTTLE 0 Refills Cyanocobalamin Inj (Cyanocobalamin Inj) 1,000 Mcg/Ml Inj 1000 MCG IM MONTHLY for Nutritional Supplement, #1 VIAL 0 Refills Enzalutamide (Xtandi) 40 Mg Cap 160 MG PO DAILY for Chemotherapy Management, #90 CAP 0 Refills Ferrous Sulfate (Ferrous Sulfate) 325 Mg (65 Mg Iron) Tablet 325 MG PO BIDPC for Nutritional Supplement, #60 TAB 0 Refills Gabapentin (Gabapentin) 300 Mg Cap 600 MG PO BID for Pain Management, #60 CAP 0 Refills Hydralazine HCl (Hydralazine HCl) 25 Mg Tablet 25 MG PO Q8HR for Blood Pressure Management, #90 TAB 0 Refills Potassium Chloride ER (Potassium Chloride ER) 20 Meq Tab 40 MEQ PO BID for Electrolyte Replacement, #60 TAB 0 Refills Prednisone (Prednisone) 5 Mg Tab 5 MG PO BID for Inflammation, TAB 0 Refills Discontinued Medications: Diclofenac Topical (Diclofenac Topical) 1% Gel 1 APPLIC TOPICAL BID for Pain Management, #100 GM 0 Refills Warfarin (Warfarin) 5 Mg Tab 5 MG PO SuTuWeThFrSa for Blood Clot Prevention, #30 TAB 0 Refills Take 1 tablet (5mg) daily on Tuesday,Tuesday,Tuesday,,Tuesday and Tuesday Warfarin (Warfarin) 5 Mg Tab 7.5 MG PO TUESDAY for Blood Clot Prevention, #30 TAB 0 Refills Take 1&1/2 tablets (7.5mg) daily on Mondays Patt Sweet MD Jan 11, 2018 11:04
[2018-01-11 12:00] VITALS: BP 152/70; PULSE 67; RESP 18; TEMP 98.3; O2SAT 98
[2018-01-11] MEDS ORDERED: MSIR15 PO (13:11)
[2018-01-11] MEDS ORDERED: BACL10TA PO (13:17)
[2018-01-11] MEDS ORDERED: METO25TA3 PO (13:17)
[2018-01-11 16:25] VITALS: RESP 18
== END 2018-01-11 17:52 | DRG 377 ==
LOC: NEPE 10:34 → NEDA 14:59 → NEPFCDU 17:32 → OBSVTOIN 01-06 09:02 → N06A 01-06 13:33
PROVIDERS: ADMIT Hospitalist; ATTEND Hospitalist
PROC: 30233K1 Transfusion of Nonautologous Frozen Plasma into Peripheral Vein, Percutaneous Approach (ICD-10-PCS; 2018-01-05)
PROC: 30233N1 Transfusion of Nonautologous Red Blood Cells into Peripheral Vein, Percutaneous Approach (ICD-10-PCS; 2018-01-06)
PROC: 0DB68ZX Excision of Stomach, Via Natural or Artificial Opening Endoscopic, Diagnostic (ICD-10-PCS; principal; 2018-01-06 15:42)
PROC: 0DJD8ZZ Inspection of Lower Intestinal Tract, Via Natural or Artificial Opening Endoscopic (ICD-10-PCS; 2018-01-06 15:42)
DX: K29.51 Unspecified chronic gastritis with bleeding (principal); G92 Toxic encephalopathy; N17.9 Acute kidney failure, unspecified; C79.51 Secondary malignant neoplasm of bone; C61 Malignant neoplasm of prostate; D62 Acute posthemorrhagic anemia; E86.0 Dehydration; K62.6 Ulcer of anus and rectum; N18.9 Chronic kidney disease, unspecified; I12.9 Hypertensive chronic kidney disease with stage 1 through stage 4 chronic kidney disease, or unspecified chronic kidney disease; T50.905A Adverse effect of unspecified drugs, medicaments and biological substances, initial encounter; F17.210 Nicotine dependence, cigarettes, uncomplicated; Z79.01 Long term (current) use of anticoagulants; Z92.21 Personal history of antineoplastic chemotherapy
CPT/HCPCS: 36430; 70450; 71045; 73552; 74176; 74250; 76775; 78278; 80048; 80053; 83690; 83735; 84100; 85014; 85018; 85025; 85027; 85610; 85730; 86850; 86900; 86901; 86920; 86927; 87328; 87329; 87493; 87506; 88305; 88312; 93005; 93971; A9560; C9113; J1170; J1642; J2270; J7030; J7040; J7050; J7512; P9016; P9017; Q9963

== ENCOUNTER 2018-03-06 17:34 | Observation (INO) ==
[2018-03-06] MEDS ORDERED: Gadobutrol PF 10 MMOL/10 ML Vial (for RAD) IV.SIG ONE (17:35)
[2018-03-06] MEDS ORDERED: Sodium Chlor 0.9% Inj 500 ML IV.SIG ONE (18:01)
--- NOTE | 2018-03-06 18:22 | ED ---
HPI General Chief Complaint: Altered Mental Status Stated Complaint: Poss AMS Time Seen by Provider: 03/06/18 17:53 Source: patient and EMS Mode of arrival: EMS Limitations: altered mental status History of Present Illness HPI narrative: The patient is a 67-year-old male with history of metastatic emergency department via EMS for altered mental status. Per EMS the patient has had an altered mental status since Tuesday and has progressively become worse. At baseline, the patient is able to do things for himself around the house. The patient currently has no complaints and is unable to provide any accurate history. He denies any chest pain, abdominal pain, dysuria, hematuria , fever, or chills. He did seem to complain of back pain and abdominal pain to EMS but currently does not. Related Data Home Medications Medication Instructions Recorded Confirmed amlodipine 10 mg PO DAILY 03/06/18 03/06/18 atenolol-chlorthalidone 1 tab PO DAILY 03/06/18 03/06/18 calcium carbonate [Calcium 600] 600 mg PO DAILY NEB 03/06/18 03/06/18 cholecalciferol (vitamin D3) 1,000 unit PO DAILY 03/06/18 03/06/18 [Vitamin D3] ferrous sulfate [Iron (ferrous 325 mg PO DAILY 03/06/18 03/06/18 sulfate)] gabapentin 600 mg PO TID 03/06/18 03/06/18 hydralazine 25 mg PO TID 03/06/18 03/06/18 morphine 15 mg PO DAILY 03/06/18 03/06/18 oxycodone 5 mg PO Q4-6H PRN 03/06/18 03/06/18 potassium chloride 20 meq PO DAILY 03/06/18 03/06/18 Allergies Allergy/AdvReac Type Severity Reaction Status Date / Time No Known Allergies Allergy Unverified 03/06/18 18:45 Review of Systems Constitutional Denies chills and Denies fever(s) Eyes Denies blurry vision and Denies change in vision ENT Denies dizziness and Denies sore throat Cardiovascular Denies chest pain and Denies diaphoresis Respiratory Denies cough and Denies dyspnea Gastrointestinal Denies diarrhea and Denies nausea Genitourinary Denies hematuria and Denies dysuria Integumentary/Breasts Denies rash Neurologic Reports confusion, Denies dizziness, Denies focal weakness and Denies numbness Psychiatric Denies anxiety and Reports confusion FOR[facility]LY [facility] Medical History Medical History Hypertension (Acute) Prostate CA (Acute) Social History Social History Smoking Status: Unknown if ever smoked How Often Do You Have a Drink Containing Alcohol: Unable to Obtain Recent Travel in [facility] within the Last 8 Weeks: No Recent Out of Country Travel within the Last 8 Weeks: No Immunization History Tetanus Immunization: Unable to Assess Hx Influenza Vaccine This Season: Unable to Assess Exam Narrative Exam Narrative: GENERAL: Well-developed well-nourished male appearing in no acute respiratory distress. SKIN: Focused skin assessment warm/dry with no rashes or ecchymosis. Right second intercostal space port noted to be nontender and nonerythematous. HEAD: Atraumatic. Normocephalic. EYES: Pupils equal and round. No scleral icterus. No injection or drainage. ENT: No nasal bleeding or discharge. Mucous membranes pink and moist. NECK: Trachea midline. No JVD. CARDIOVASCULAR: Regular rate and rhythm. No murmur appreciated. RESPIRATORY: No accessory muscle use. Clear to auscultation. Breath sounds equal bilaterally. GASTROINTESTINAL: Mildly distended and tympanic to percussion, mild diffuse tenderness, bowel sounds present, no hepatosplenomegaly. MUSCULOSKELETAL: No obvious deformities. No clubbing. No cyanosis. No edema. Full ROM of the upper and lower extremities. 2+ pulses bilaterally. NEUROLOGICAL: Awake and alert. No obvious cranial nerve deficits. Motor grossly within normal limits. Normal speech. No facial asymmetry. PSYCHIATRIC: Oriented to person but not place or time Course Initial Documented Vital Signs Pulse Oximetry 95 03/06/18 17:57 Last Documented Vital Signs Temperature 98.4 F 03/06/18 22:15 Pulse Rate 93 H 03/06/18 22:15 Respiratory Rate 20 03/06/18 22:15 Blood Pressure 139/84 03/06/18 22:15 Pulse Oximetry 93 L 03/06/18 22:15 Medical Decision Making MDM Narrative Medical decision making narrative: 67-year-old male the presents to the ED for evaluation of altered mental status. History is limited because of the patient' s mental status. From history I was able to obtain apparently patient does have prostate cancer and has been having apparently some back pain. He does have metastatic disease known to his back. Apparently the family contacted the hospice doctor and the recommended that the patient come here for evaluation as patient could require treatment versus palliative care. Family was not initially in bedside but now family showed up and they report that apparently he has not been able to walk and has been no wanting to eat for the past 3-4 days. Apparently since Tuesday he has been more altered. Before this he was for the most part normal. There are no shortness to what is going on but apparently patient has not wanted to walk since Tuesday his mentation has been deteriorating. Labs and imaging were done and show what appears to be no sign of acute disease. More specifically no sign of compression fractures or new deformities alert and what appears to be metastatic disease. Patient still very confused and not at baseline. Unclear of the etiology of the symptoms. Urine still pending. Because of unclear reason of the patient's alteration I did offer admission to the patient and family for further evaluation. They will like to pursue admission for further evaluation. KATERYNA was paged. Dr Law agrees to admission. Differential Diagnosis Differential Diagnosis: Metastatic disease versus sepsis versus altered mental status versus dehydration versus UTI versus ACS versus normal exam Medical Records Medical records reviewed: Yes I reviewed the patient's medical records. Lab Data Lab results reviewed: Yes I reviewed the patient's lab results. Lab results narrative: troponin and CKMB negative Result diagrams: 03/06/18 18:15 03/06/18 18:15 Lab Results 03/06/18 03/06/18 03/06/18 Range/Units 18:09 18:15 18:15 WBC 9.5 (4.0-11.0) th/mm3 RBC 4.96 (4.50-5.90) mil/mm3 Hgb 14.8 (13.0-17.0) gm/dL Hct 43.8 (39.0-51.0) % MCV 88.3 (80.0-100.0) fL MCH 29.9 (27.0-34.0) pg MCHC 33.9 (32.0-36.0) % RDW 16.9 (11.6-17.2) % Plt Count 183 (150-450) th/mm3 MPV 8.0 (7.0-11.0) fL Neut % (Auto) 73.3 H (16.0-70.0) % Lymph % (Auto) 11.4 (9.0-44.0) % [place] % (Auto) 12.7 H (0.0-8.0) % Eos % (Auto) 2.3 (0.0-4.0) % Baso % (Auto) 0.3 (0.0-2.0) % Neut # (Auto) 7.0 (1.8-7.7) th/mm3 Lymph # (Auto) 1.1 (1.0-4.8) th/mm3 [place] # (Auto) 1.2 H (0.0-0.9) th/mm3 Eos # (Auto) 0.2 (0.0-0.4) th/mm3 Baso # (Auto) 0.0 (0.0-0.2) th/mm3 WBC Differential . Differential Comment Auto diff final Sodium 134 L (136-145) meq/L Potassium 3.8 (3.5-5.1) meq/L Chloride 101 (98-107) meq/L Carbon Dioxide 24.7 (21.0-32.0) meq/L Anion Gap 8 (5-15) meq/L BUN 15 (7-18) mg/dL Creatinine 0.89 (0.60-1.30) mg/dL Estimated GFR 85 L (>89) mL/min POC Glucose 103 (68-110) mg/dl Random Glucose 86 (74-106) mg/dL Lactic Acid (0.4-2.0) mmol/L Calcium 9.3 (8.5-10.1) mg/dL Total Bilirubin 0.7 (0.2-1.0) mg/dL AST 46 H (15-37) U/L ALT 42 (12-78) U/L Alkaline Phosphatase 132 H (45-117) U/L Ammonia (11-32) mcmol/L Troponin I Less than 0.02 L (0.02-0.05) ng/mL Total Protein 7.2 (6.4-8.2) g/dL Albumin 2.9 L (3.4-5.0) g/dL 03/06/18 03/06/18 Range/Units 18:15 18:15 WBC (4.0-11.0) th/mm3 RBC (4.50-5.90) mil/mm3 Hgb (13.0-17.0) gm/dL Hct (39.0-51.0) % MCV (80.0-100.0) fL MCH (27.0-34.0) pg MCHC (32.0-36.0) % RDW (11.6-17.2) % Plt Count (150-450) th/mm3 MPV (7.0-11.0) fL Neut % (Auto) (16.0-70.0) % Lymph % (Auto) (9.0-44.0) % [place] % (Auto) (0.0-8.0) % Eos % (Auto) (0.0-4.0) % Baso % (Auto) (0.0-2.0) % Neut # (Auto) (1.8-7.7) th/mm3 Lymph # (Auto) (1.0-4.8) th/mm3 [place] # (Auto) (0.0-0.9) th/mm3 Eos # (Auto) (0.0-0.4) th/mm3 Baso # (Auto) (0.0-0.2) th/mm3 WBC Differential Differential Comment Sodium (136-145) meq/L Potassium (3.5-5.1) meq/L Chloride (98-107) meq/L Carbon Dioxide (21.0-32.0) meq/L Anion Gap (5-15) meq/L BUN (7-18) mg/dL Creatinine (0.60-1.30) mg/dL Estimated GFR (>89) mL/min POC Glucose (68-110) mg/dl Random Glucose (74-106) mg/dL Lactic Acid 1.0 (0.4-2.0) mmol/L Calcium (8.5-10.1) mg/dL Total Bilirubin (0.2-1.0) mg/dL AST (15-37) U/L ALT (12-78) U/L Alkaline Phosphatase (45-117) U/L Ammonia 19 (11-32) mcmol/L Troponin I (0.02-0.05) ng/mL Total Protein (6.4-8.2) g/dL Albumin (3.4-5.0) g/dL Imaging Data Attestation: I personally reviewed and interpreted this imaging study as follows : Radiologist's impression: Abdomen/Pelvis CT 03/06/18 17:57 CONCLUSION: 1. No acute findings within the abdomen compared with prior exam from January 05. 2. Numerous blastic bone metastases characteristic of prostate metastatic disease similar to prior exam. 3. Fatty liver with small cysts. Small splenic cyst anteriorly. 4. Numerous bilateral renal cysts, prominent on the left side stable. 5. No obstruction, free fluid or free air. 6. Severe coronary calcifications. Chest X-Ray 03/06/18 17:57 The Ryczet-u-Hsnk tip is in the right atrium. Minimal basilar opacity most characteristic of atelectasis or scarring. No significant change from January 05. No significant effusion. No pneumothorax. Mild elevation right hemidiaphragm. CONCLUSION: Subsegmental basilar opacity most characteristic of atelectasis or scarring. No significant effusion. No pneumothorax. Head CT 03/06/18 17:57 CONCLUSION: 1. No acute intracranial abnormalities. Exam degraded by motion. . Lumbar Spine MRI 03/06/18 18:48 CONCLUSION: 1. Widespread bony metastatic disease without pathologic fracture or retropulsion. 2. Broad-based disc bulge or mild protrusions at L3-4-5 with mild stenosis of the lateral recesses and neural foramina. 3. Epidural lipomatosis at the lumbosacral junction with moderate effacement of the thecal sac. Discharge Plan Physicians Team ED Provider: Thomas Smith ED Midlevel Provider: Fredy Ruelas Primary Care Provider: UNKNOWN, Rxs /Orders / Referrals /Forms Prescriptions: No Action gabapentin 600 mg Tablet 600 mg PO TID RF: 0 atenolol-chlorthalidone 50-25 mg Tablet 1 tab PO DAILY RF: 0 hydralazine 25 mg Tablet 25 mg PO TID RF: 0 calcium carbonate [Calcium 600] 600 mg calcium (1,500 mg) Tablet 600 mg PO DAILY NEB RF: 0 amlodipine 10 mg Tablet 10 mg PO DAILY RF: 0 ferrous sulfate [Iron (ferrous sulfate)] 325 mg (65 mg iron) Tablet 325 mg PO DAILY RF: 0 morphine 15 mg Tablet Extended Release 15 mg PO DAILY RF: 0 oxycodone 5 mg Tablet 5 mg PO Q4-6H PRN (Reason: Pain) RF: 0 cholecalciferol (vitamin D3) [Vitamin D3] 1,000 unit Capsule 1,000 unit PO DAILY RF: 0 potassium chloride 20 mEq Tablet Extended Release 20 meq PO DAILY RF: 0 Discharge Interventions Interventions: Vital Signs Last Done: 03/06/18 22:15 Status ED Status: With Doctor
--- NOTE | 2018-03-06 18:23 | XR ---
EXAM DATE: 03/06/2018 6:16 PM EDT AGE/SEX: 67 years / Male INDICATIONS: Cough. CLINICAL DATA: This is the patient's initial encounter. Patient reports that signs and symptoms have been present for 1 day and indicates a pain score of 0/10. MEDICAL/SURGICAL HISTORY: . Carcinoma, prostatic. Carcinoma, bone. Pulmonary embolism. HTN . [place] [facility] [place]. . FINDINGS: The Auoiiu-p-Ieal tip is in the right atrium. Minimal basilar opacity most characteristic of atelecta sis or scarring. No significant change from January 05. No significant effusion. No pneumothorax. Mild el evation right hemidiaphragm. CONCLUSION: Subsegmental basilar opacity most characteristic of atelectasis or scarring. No significant effusion. No pneumothorax. Electronically signed by: Nomi Briggs MD 03/06/2018 6:21 PM EDT
[2018-03-06 18:34] LABS: Baso % (Auto) 0.3 % (0.0-2.0); Eos # (Auto) 0.2 th/mm3 (0.0-0.4); Eos % (Auto) 2.3 % (0.0-4.0); Hematocrit 43.8 % (39.0-51.0); Hemoglobin 14.8 gm/dL (13.0-17.0); Lymph # (Auto) 1.1 th/mm3 (1.0-4.8); Lymph % (Auto) 11.4 % (9.0-44.0); Mean Corpuscular HGB Conc 33.9 % (32.0-36.0); Mean Corpuscular Hemoglobin 29.9 pg (27.0-34.0); Mean Corpuscular Volume 88.3 fL (80.0-100.0); Mono # (Auto) 1.2 th/mm3 (0.0-0.9); Mono % (Auto) 12.7 % (0.0-8.0); Neut % (Auto) 73.3 % (16.0-70.0); Platelet Count 183 th/mm3 (150-450); Red Blood Count 4.96 mil/mm3 (4.50-5.90); Red Cell Distribution Width 16.9 % (11.6-17.2); White Blood Count 9.5 th/mm3 (4.0-11.0)
[2018-03-06 18:57] LABS: Albumin 2.9 g/dL (3.4-5.0); Anion Gap 8 meq/L (5-15); Aspartate Aminotransferase 46 U/L (15-37); Blood Urea Nitrogen 15 mg/dL (7-18); Calcium 9.3 mg/dL (8.5-10.1); Carbon Dioxide 24.7 meq/L (21.0-32.0); Chloride 101 meq/L (98-107); Glomerular Filtration Rate 85 mL/min (>89); Glucose,Random 86 mg/dL (74-106); Potassium 3.8 meq/L (3.5-5.1); Sodium 134 meq/L (136-145)
[2018-03-06 19:02] LABS: Alanine Aminotransferase 42 U/L (12-78); Alkaline Phosphatase 132 U/L (45-117); Total Protein 7.2 g/dL (6.4-8.2)
--- NOTE | 2018-03-06 21:21 | CT ---
EXAM DATE: 03/06/2018 8:46 PM EDT AGE/SEX: 67 years / Male INDICATIONS: Altered mental status. CLINICAL DATA: This is the patient's initial encounter. Patient reports that signs and symptoms have been present for 1 day and indicates a pain score of 5/10. MEDICAL/SURGICAL HISTORY: Carcinoma, prostatic. Hypertension. None. RADIATION DOSE: 48.59 CTDI (mGy) COMPARISON: [facility] – [place], [place] BRAIN W/O CONTRAST, 01/05/2018. . TECHNIQUE: CT of the head without contrast. Using automated exposure control and adjustment of the mA and/or kV according to patient size, radiation dose was kept as low as reasonably achievable to ob tain optimal diagnostic quality images. DICOM format image data is available electronically for revi ew and comparison. FINDINGS: Cerebrum: The ventricles are normal for age. No evidence of midline shift, mass lesion, hemorrhage or acute infarction. No extraaxial fluid collections are seen. Posterior Fossa: The cerebellum and brainstem are intact. The 4th ventricle is midline. The cerebe llopontine angle is unremarkable. Extracranial: The visualized portion of the orbits is intact. Skull: The calvaria is intact. No evidence of skull fracture. CONCLUSION: 1. No acute intracranial abnormalities. Exam degraded by motion. . Electronically signed by: Nomi Briggs MD 03/06/2018 9:20 PM EDT
--- NOTE | 2018-03-06 21:26 | CT ---
EXAM DATE: 03/06/2018 8:54 PM EDT AGE/SEX: 67 years / Male INDICATIONS: Diffuse abdomen pain. CLINICAL DATA: This is the patient's initial encounter. Patient reports that signs and symptoms have been present for 1 day and indicates a pain score of 7/10. MEDICAL/SURGICAL HISTORY: Carcinoma, prostatic. Hypertension. None. ORAL CONTRAST: No oral contrast ingested. RADIATION DOSE: 15.83 CTDI (mGy) COMPARISON: [facility] – [place] ABDOMEN & PELVIS W/O CONTRAST, 01/05/2018. . TECHNIQUE: Multiple contiguous axial images were obtained through the abdomen and pelvis following b olus infusion of 96 ml Omnipaque 350 (iohexol) nonionic water-soluble contrast as a single exam dos e. No oral contrast ingested. Using automated exposure control and adjustment of the mA and/or kV ac cording to patient size, radiation dose was kept as low as reasonably achievable to obtain optimal di agnostic quality images. DICOM format image data is available electronically for review and comparis on. FINDINGS: Comparison is January 05, 2018. Again seen are numerous blastic bone metastasis characteristic of prostat e metastatic disease. There is linear atelectasis or scarring at the lung bases. Severe coronary artery calcifications. Mild fatty liver. Probable small cysts in the liver and spleen similar to prior exam. Stable left adrenal enlargement. Right adrenal unremarkable. Numerous left renal cysts with cortical atrophy. Right renal cysts also stable. No free fluid. No bowel obstruction. No adenopathy. Mild constipation. CONCLUSION: 1. No acute findings within the abdomen compared with prior exam from January 05. 2. Numerous blastic bone metastases characteristic of prostate metastatic disease similar to prior e xam. 3. Fatty liver with small cysts. Small splenic cyst anteriorly. 4. Numerous bilateral renal cysts, prominent on the left side stable. 5. No obstruction, free fluid or free air. 6. Severe coronary calcifications. Electronically signed by: Nomi Briggs MD 03/06/2018 9:25 PM EDT
--- NOTE | 2018-03-06 21:54 | MR ---
EXAM DATE: 03/06/2018 8:07 PM EDT AGE/SEX: 67 years / Male INDICATIONS: Metastatic disease. CLINICAL DATA: This is the patient's initial encounter. Patient reports that signs and symptoms have been present for 3 days and indicates a pain score of Nonresponsive. MEDICAL/SURGICAL HISTORY: Carcinoma, prostatic. Hypertension. . Neck sx, Shoulder sx. COMPARISON: [facility] – [place], CT ABDOMEN & PELVIS W CONTRAST, 03/06/2018. . TECHNIQUE: Multiplanar, multisequence MRI examination of the lumbar spine was performed without and with 8 ml Gadavist (gadobutrol) contrast as a single exam dose. FINDINGS: There is extensive bony metastatic disease and sacral metastatic disease at every level. There is no pathologic fracture. No spondylolisthesis. No stenosis at [id number] 3. At L3-4 and L4-5 there are broad-based disc bulges with mild narrowing of the lateral recesses and ne ural foramina. At L5-S1 there is epidural lipomatosis with moderate effacement of thecal sac. Mild bilateral foramin al stenosis. CONCLUSION: 1. Widespread bony metastatic disease without pathologic fracture or retropulsion. 2. Broad-based disc bulge or mild protrusions at L3-4-5 with mild stenosis of the lateral recesses a nd neural foramina. 3. Epidural lipomatosis at the lumbosacral junction with moderate effacement of the thecal sac. Electronically signed by: Nomi Briggs MD 03/06/2018 9:53 PM EDT
[2018-03-06] MEDS ORDERED: Bisacodyl 10 MG Supp RECTAL PRN (22:31)
[2018-03-07] MEDS ORDERED: predniSONE 10 MG Tablet PO ONE (01:18)
--- NOTE | 2018-03-07 01:24 | P.HPIM ---
History of Present Illness Primary Care Physician: UNKNOWN History of Present Illness: 67-year-old male with a history of metastatic prostate cancer who is brought in by family for 3 day history of progressively worsening altered mental status and generalized weakness. Patient says he just says that he is in the hospital , does not know the year or month. He is uncertain why he is here. No family at bedside at the time of my evaluation. History obtained from ER doctor documentation. Patient appears to be on gabapentin, narcotics however uncertain when these were the last started or given. Patient himself denies any pain, however upon moving appears to have severe back pain, consistent with past history of spinal metastases. Review of Systems Attempted, however unable secondary to confusion. PMFSH - History History Provided By: Patient, Government Auditor / EMT - Medical History Medical History: Medical History (Last Updated 03/07/18 @ 01:21 by Jovani Law MD) Deficient knowledge of leg surgery Hypertension Prostate CA - Surgical History Surgical History: Surgical History (Last Updated 03/07/18 @ 01:21 by Jovani Law MD) H/O abdominal surgery - Tobacco History Smoking Status: Unknown if ever smoked - Alcohol History How Often Do You Have a Drink Containing Alcohol: Unable to Obtain - Travel History Recent Travel in the [place] Within the Last 8 Weeks: No Recent Travel Out of the Country Within the Last 8 Weeks: No - Immunization History Tetanus Immunization: Unable to Assess Hx Influenza Vaccine This Season: Unable to Assess Medications and Allergies Active Medications: Active Medications Al Hydroxide/Mg Hydroxide (Milk Of Magnesia Liq) 30 ml PO Q12H PRN PRN Reason: Mild Constipation Atenolol (Tenormin) 50 mg PO DAILY CITLALLI Bisacodyl (Dulcolax Supp) 10 mg RECTAL DAILY PRN PRN Reason: SEVERE CONSITIPATION Sodium Chloride (Ns Inj) 1,000 mls @ 50 mls/hr IV.CONT .Q20H CITLALLI Lactulose (Lactulose Liq) 30 ml PO DAILY PRN PRN Reason: SEVERE CONSITIPATION Senna/Docusate Sodium (Shelia-Colace) 1 tab PO BID CITLALLI Sennosides (Senokot) 17.2 mg PO Q12H PRN PRN Reason: Moderate Constipation Allergies Allergy/AdvReac Type Severity Reaction Status Date / Time No Known Allergies Allergy Unverified 03/06/18 18:45 Home Medications Medication Instructions Recorded Confirmed Type amlodipine 10 mg PO DAILY 03/06/18 03/06/18 History atenolol-chlorthalidone 1 tab PO DAILY 03/06/18 03/06/18 History calcium carbonate [Calcium 600] 600 mg PO DAILY NEB 03/06/18 03/06/18 History cholecalciferol (vitamin D3) 1,000 unit PO DAILY 03/06/18 03/06/18 History [Vitamin D3] ferrous sulfate [Iron (ferrous 325 mg PO DAILY 03/06/18 03/06/18 History sulfate)] gabapentin 600 mg PO TID 03/06/18 03/06/18 History hydralazine 25 mg PO TID 03/06/18 03/06/18 History morphine 15 mg PO DAILY 03/06/18 03/06/18 History oxycodone 5 mg PO Q4-6H PRN 03/06/18 03/06/18 History potassium chloride 20 meq PO DAILY 03/06/18 03/06/18 History Exam Vital signs: Vital Signs 03/06/18 17:57 03/06/18 17:58 03/06/18 22:15 Temperature 98.1 F 98.4 F Pulse Rate 100 H 93 H Respiratory Rate 20 20 Blood Pressure 150/86 H 139/84 Pulse Oximetry 95 94 L 93 L Intake & Output 03/06/18 03/06/18 03/07/18 06:59 18:59 06:59 Weight 77.111 kg Narrative: GENERAL: Patient lying in bed sleeping. Wakes up for exam. Patient is generally disoriented confused but polite and pleasant. Does not obey commands due to what appears to be confusion SKIN: Warm and dry. HEAD: Atraumatic. Normocephalic. EYES: Pupils equal and round. No scleral icterus. No injection or drainage. ENT: No nasal bleeding or discharge. Mucous membranes pink and moist. NECK: Trachea midline. No JVD. CARDIOVASCULAR: Regular rate and rhythm. RESPIRATORY: No accessory muscle use. Clear to auscultation. Breath sounds equal bilaterally. GASTROINTESTINAL: Abdomen soft, non-tender, nondistended. Hepatic and splenic margins not palpable. MUSCULOSKELETAL: Extremities without clubbing, cyanosis, or edema. No obvious deformities. NEUROLOGICAL: Awake and alert. No obvious cranial nerve deficits. Motor grossly within normal limits. 4 out of 5 muscle strength in the arms and legs. Slow speech. PSYCHIATRIC: Appropriate mood and affect; insight and judgment normal. Results - Labs CBC & Chem 7: 03/06/18 18:15 03/06/18 18:15 Labs: Short CBC 03/06/18 Range/Units 18:15 WBC 9.5 (4.0-11.0) th/mm3 Hgb 14.8 (13.0-17.0) gm/dL Hct 43.8 (39.0-51.0) % Plt Count 183 (150-450) th/mm3 BMP 03/06/18 18:15 Sodium 134 L Potassium 3.8 Chloride 101 Carbon Dioxide 24.7 BUN 15 Creatinine 0.89 Calcium 9.3 Cardiac Enzymes 03/06/18 Range/Units 18:15 Troponin I Less than 0.02 L (0.02-0.05) ng/mL Liver Function 03/06/18 Range/Units 18:15 Total Bilirubin 0.7 (0.2-1.0) mg/dL AST 46 H (15-37) U/L ALT 42 (12-78) U/L Alkaline Phosphatase 132 H (45-117) U/L Albumin 2.9 L (3.4-5.0) g/dL - Imaging Impressions Abdomen/Pelvis CT 03/06/18 17:57 CONCLUSION: 1. No acute findings within the abdomen compared with prior exam from January 05. 2. Numerous blastic bone metastases characteristic of prostate metastatic disease similar to prior exam. 3. Fatty liver with small cysts. Small splenic cyst anteriorly. 4. Numerous bilateral renal cysts, prominent on the left side stable. 5. No obstruction, free fluid or free air. 6. Severe coronary calcifications. Chest X-Ray 03/06/18 17:57 The [id number] tip is in the right atrium. Minimal basilar opacity most characteristic of atelectasis or scarring. No significant change from January 05. No significant effusion. No pneumothorax. Mild elevation right hemidiaphragm. CONCLUSION: Subsegmental basilar opacity most characteristic of atelectasis or scarring. No significant effusion. No pneumothorax. Head CT 03/06/18 17:57 CONCLUSION: 1. No acute intracranial abnormalities. Exam degraded by motion. . Lumbar Spine MRI 03/06/18 18:48 CONCLUSION: 1. Widespread bony metastatic disease without pathologic fracture or retropulsion. 2. Broad-based disc bulge or mild protrusions at L3-4-5 with mild stenosis of the lateral recesses and neural foramina. 3. Epidural lipomatosis at the lumbosacral junction with moderate effacement of the thecal sac. Caprini VTE Risk Assessment Caprini VTE Risk Assessment: Moderate/High Risk (score >= 2) VTE Pharmacological Exception Reason: High risk for bleeding Caprini Risk Assessment Model: Point Value = 1 Point Value = 2 Point Value = 3 Point Value = 5 Age 41-60 Minor surgery BMI > 25 kg/m2 Swollen legs Varicose veins or History of unexplained or recurrent spontaneous Oral contraceptives or hormone replacement Sepsis (< 1 month) Serious lung disease, including pneumonia (< 1 month) Abnormal pulmonary function Acute myocardial infarction Congestive heart failure (< 1 month) History of inflammatory bowel disease Medical patient at bed rest Age 61-74 Arthroscopic surgery Major open surgery (> 45 min) Laparoscopic surgery (> 45 min) Malignancy Confined to bed (> 72 hours) Immobilizing plaster cast Central venous access Age >= 75 History of VTE Family history of VTE Factor V Leiden Prothrombin [id number] Lupus anticoagulant Anticardiolipin antibodies Elevated serum homocysteine Heparin-induced thrombocytopenia Other congenital or acquired thrombophilia Stroke (< 1 month) Elective arthroplasty Hip, pelvis, or leg fracture Acute spinal cord injury (< 1 month) Prophylaxis Regimen: Total Risk Factor Score Risk Level Prophylaxis Regimen 0-1 Low Early ambulation 2 Moderate Order ONE of the following: *Sequential Compression Device (SCD) *Heparin 5000 units SQ BID 3-4 Higher Order ONE of the following medications: *Heparin 5000 units SQ TID *Enoxaparin/Lovenox 40 mg SQ daily (WT < 150 kg, CrCl > 30 mL/min) *Enoxaparin/Lovenox 30 mg SQ daily (WT < 150 kg, CrCl > 10-29 mL/min) *Enoxaparin/Lovenox 30 mg SQ BID (WT < 150 kg, CrCl > 30 mL/min) AND/OR *Sequential Compression Device (SCD) 5 or more Highest Order ONE of the following medications: *Heparin 5000 units SQ TID (Preferred with Epidurals) *Enoxaparin/Lovenox 40 mg SQ daily (WT < 150 kg, CrCl > 30 mL/min) *Enoxaparin/Lovenox 30 mg SQ daily (WT < 150 kg, CrCl > 10-29 mL/min) *Enoxaparin/Lovenox 30 mg SQ BID (WT < 150 kg, CrCl > 30 mL/min) AND *Sequential Compression Device (SCD) Assessment and Plan - Plan //Acute toxic encephalopathy //Polypharmacy CT brain with no acute findings. Will hold gabapentin and narcotics. Suspect the gabapentin toxicity can cause this. Hopefully tomorrow further discussion with family regarding when these meds were started //Atrial fibrillation. //Hypertension. Blood pressure appears acceptable, if a little low. Will hold off on blood pressure meds for now. Will continue on atenolol however. Patient is off anticoagulation secondary to history of GI bleed. //Chronic prednisone use. Could be adrenally insufficient. Will start on low- dose prednisone for stress dose Metastatic prostate cancer. Will follow-up with oncology as outpatient. Discussed Condition With: Patient, nurse, ED physician.
[2018-03-07] MEDS: Sod Chloride 0.9% Inj 1,000 ML IV.CONT SCH ×2 (01:37→18:06)
[2018-03-07 02:25] LABS: Baso % (Auto) 0.3 % (0.0-2.0); Eos # (Auto) 0.1 th/mm3 (0.0-0.4); Eos % (Auto) 1.8 % (0.0-4.0); Hemoglobin 14.2 gm/dL (13.0-17.0); Lymph # (Auto) 0.9 th/mm3 (1.0-4.8); Lymph % (Auto) 10.1 % (9.0-44.0); Mean Corpuscular Hemoglobin 29.3 pg (27.0-34.0); Mean Corpuscular Volume 88.8 fL (80.0-100.0); Mean Platelet Volume 7.8 fL (7.0-11.0); Mono % (Auto) 11.9 % (0.0-8.0); Neut # (Auto) 6.4 th/mm3 (1.8-7.7); Neut % (Auto) 75.9 % (16.0-70.0); Platelet Count 177 th/mm3 (150-450); Red Blood Count 4.84 mil/mm3 (4.50-5.90); Red Cell Distribution Width 16.5 % (11.6-17.2); White Blood Count 8.4 th/mm3 (4.0-11.0)
[2018-03-07 02:45] LABS: Albumin 2.6 g/dL (3.4-5.0); Anion Gap 9 meq/L (5-15); Aspartate Aminotransferase 38 U/L (15-37); Blood Urea Nitrogen 16 mg/dL (7-18); Calcium 9.1 mg/dL (8.5-10.1); Carbon Dioxide 23.9 meq/L (21.0-32.0); Chloride 102 meq/L (98-107); Glomerular Filtration Rate 83 mL/min (>89); Glucose,Random 90 mg/dL (74-106); Potassium 3.8 meq/L (3.5-5.1); Sodium 135 meq/L (136-145)
[2018-03-07 02:47] LABS: Alanine Aminotransferase 36 U/L (12-78); Alkaline Phosphatase 120 U/L (45-117); Total Protein 6.7 g/dL (6.4-8.2)
[2018-03-07] MEDS: amLODIPine 10 MG Tablet PO SCH (08:14)
[2018-03-07] MEDS: Atenolol 50 MG Tablet PO SCH (08:14)
[2018-03-07] MEDS: Senna/Docusate Sodium 8.6/50 MG Tablet PO SCH ×2 (08:14→20:44)
[2018-03-07] MEDS: Ferrous Sulfate 325 MG Tablet PO SCH (09:45)
[2018-03-07] MEDS: hydrALAZINE 25 MG Tablet PO SCH ×3 (09:45→17:44)
--- NOTE | 2018-03-07 09:55 | P.PN ---
Subjective Interval history: Follow-up visit history of metastatic prostate cancer, worsening altered mental status and generalized weakness. Patient seen and examined today. Complaints of abdominal pain, painful to touch, palpate. Denies nausea on exam however complaints with nurses regarding unable to eat and having some nausea. Urinating well. Patient is confused, poor historian. Physical Exam Vital signs: Vital Signs 03/06/18 17:57 03/06/18 17:58 03/06/18 22:15 Temperature 98.1 F 98.4 F Pulse Rate 100 H 93 H Respiratory Rate 20 20 Blood Pressure 150/86 H 139/84 Pulse Oximetry 95 94 L 93 L 03/07/18 00:00 03/07/18 04:00 03/07/18 06:45 Temperature 98.9 F 98.3 F Pulse Rate 89 87 82 Respiratory Rate 15 15 Blood Pressure 133/62 180/75 H 170/84 H Pulse Oximetry 97 94 L 03/07/18 08:00 Temperature 98.5 F Pulse Rate 79 Respiratory Rate 16 Blood Pressure 179/84 H Pulse Oximetry 96 Intake & Output 03/06/18 03/07/18 03/07/18 18:59 06:59 18:59 Weight 77.111 kg Narrative: GENERAL: This is a well-nourished, well-developed patient, in no apparent distress. SKIN: Warm and dry. HEENT: Normocephalic. Pupils equal round and reactive. Nose without bleeding. Airway patent. NECK: Trachea midline. No JVD. Supple. CARDIOVASCULAR: Regular rate and rhythm without murmurs, gallops, or rubs. RESPIRATORY: Clear to auscultation. Breath sounds equal bilaterally. No wheezes , rales, or rhonchi. GASTROINTESTINAL: Abdomen soft. Bowel Sounds hypoactive. Tender to light palpation. MUSCULOSKELETAL: Extremities without clubbing, cyanosis, or edema. NEUROLOGICAL: Awake and alert. Confused. Does not know where he sat, date, year. Moves all extremities. Normal speech. Results - Labs CBC & Chem 7: 03/07/18 02:02 03/07/18 02:02 Laboratory Results - last 24 hr 03/06/18 03/06/18 03/06/18 18:09 18:15 18:15 WBC 9.5 RBC 4.96 Hgb 14.8 Hct 43.8 MCV 88.3 MCH 29.9 MCHC 33.9 RDW 16.9 Plt Count 183 MPV 8.0 Neut % (Auto) 73.3 H Lymph % (Auto) 11.4 [place] % (Auto) 12.7 H Eos % (Auto) 2.3 Baso % (Auto) 0.3 Neut # (Auto) 7.0 Lymph # (Auto) 1.1 [place] # (Auto) 1.2 H Eos # (Auto) 0.2 Baso # (Auto) 0.0 WBC Differential . Differential Comment Auto diff final Sodium 134 L Potassium 3.8 Chloride 101 Carbon Dioxide 24.7 Anion Gap 8 BUN 15 Creatinine 0.89 Estimated GFR 85 L POC Glucose 103 Random Glucose 86 Lactic Acid Calcium 9.3 Total Bilirubin 0.7 AST 46 H ALT 42 Alkaline Phosphatase 132 H Ammonia Troponin I Less than 0.02 L Total Protein 7.2 Albumin 2.9 L Cortisol 03/06/18 03/06/18 03/07/18 18:15 18:15 02:02 WBC 8.4 RBC 4.84 Hgb 14.2 Hct 43.0 MCV 88.8 MCH 29.3 MCHC 33.0 RDW 16.5 Plt Count 177 MPV 7.8 Neut % (Auto) 75.9 H Lymph % (Auto) 10.1 [place] % (Auto) 11.9 H Eos % (Auto) 1.8 Baso % (Auto) 0.3 Neut # (Auto) 6.4 Lymph # (Auto) 0.9 L [place] # (Auto) 1.0 H Eos # (Auto) 0.1 Baso # (Auto) 0.0 WBC Differential . Differential Comment Auto diff final Sodium Potassium Chloride Carbon Dioxide Anion Gap BUN Creatinine Estimated GFR POC Glucose Random Glucose Lactic Acid 1.0 Calcium Total Bilirubin AST ALT Alkaline Phosphatase Ammonia 19 Troponin I Total Protein Albumin Cortisol 03/07/18 03/07/18 02:02 02:02 WBC RBC Hgb Hct MCV MCH MCHC RDW Plt Count MPV Neut % (Auto) Lymph % (Auto) [place] % (Auto) Eos % (Auto) Baso % (Auto) Neut # (Auto) Lymph # (Auto) [place] # (Auto) Eos # (Auto) Baso # (Auto) WBC Differential Differential Comment Sodium 135 L Potassium 3.8 Chloride 102 Carbon Dioxide 23.9 Anion Gap 9 BUN 16 Creatinine 0.91 Estimated GFR 83 L POC Glucose Random Glucose 90 Lactic Acid Calcium 9.1 Total Bilirubin 0.7 AST 38 H ALT 36 Alkaline Phosphatase 120 H Ammonia Troponin I Total Protein 6.7 Albumin 2.6 L Cortisol 18.7 - Imaging Impressions Abdomen/Pelvis CT 03/06/18 17:57 CONCLUSION: 1. No acute findings within the abdomen compared with prior exam from January 05. 2. Numerous blastic bone metastases characteristic of prostate metastatic disease similar to prior exam. 3. Fatty liver with small cysts. Small splenic cyst anteriorly. 4. Numerous bilateral renal cysts, prominent on the left side stable. 5. No obstruction, free fluid or free air. 6. Severe coronary calcifications. Chest X-Ray 03/06/18 17:57 The [id number] tip is in the right atrium. Minimal basilar opacity most characteristic of atelectasis or scarring. No significant change from January 05. No significant effusion. No pneumothorax. Mild elevation right hemidiaphragm. CONCLUSION: Subsegmental basilar opacity most characteristic of atelectasis or scarring. No significant effusion. No pneumothorax. Head CT 03/06/18 17:57 CONCLUSION: 1. No acute intracranial abnormalities. Exam degraded by motion. . Lumbar Spine MRI 03/06/18 18:48 CONCLUSION: 1. Widespread bony metastatic disease without pathologic fracture or retropulsion. 2. Broad-based disc bulge or mild protrusions at L3-4-5 with mild stenosis of the lateral recesses and neural foramina. 3. Epidural lipomatosis at the lumbosacral junction with moderate effacement of the thecal sac. Assessment and Plan - Assessment (1) Altered mental status Code(s): R41.82 - Altered mental status, unspecified Status: Acute - Plan 67-year-old male with a history of metastatic prostate cancer who is brought in by family for 3 day history of progressively worsening altered mental status and generalized weakness. Acute toxic encephalopathy Polypharmacy -on morphine, oxycodone, and gabapentin -CT brain with no acute findings. -Will hold gabapentin and narcotics. Suspect the gabapentin toxicity can cause this. -Hold off on home narcotics. Will start [place] for now. Patient is not complaining of pain except for abdominal pain to palpate. -CT of the abdomen and pelvis showed bony metastasis otherwise no acute process. -Lumbar spine MRI showed 1. Widespread bony metastatic disease without pathologic fracture or retropulsion. 2. Broad-based disc bulge or mild protrusions at L3-4-5 with mild stenosis of the lateral recesses and neural foramina.3. Epidural lipomatosis at the lumbosacral junction with moderate effacement of the thecal sac. -Will contact [facility] for [facility]. ? Palliative radiation can be done -Palliative care consult for goals of care Atrial fibrillation. Hypertension. -Blood pressure appears acceptable, if a little low. -Will hold off on blood pressure meds for now. -Will continue on atenolol -Patient is off anticoagulation secondary to history of GI bleed. Chronic prednisone use -Could be adrenally insufficient vs bone metastases treatment of pain. -On low-dose prednisone for stress dose Metastatic prostate cancer. -Will follow-up with oncology as outpatient -Will call [place] oncologist DVT prop SCDs Code Status: Full Code Discussed Condition With: Patient, nursing, Dr. Whitehead Discharge Planning: DC home when clinically improved.
[2018-03-07] MEDS ORDERED: Promethazine 25 MG Supp RECTAL PRN (10:14)
[2018-03-07 13:07] LABS: Bilirubin,Urine Negative (Negative); Clarity,Urine Clear (Clear); Color,Urine Yellow (Yellw/Straw); Glucose,Urine (UA) Negative (Negative); Leukocyte Esterase,Urine Negative (Negative); Mucus,Urine Few /lpf (Occasional); Nitrite,Urine Negative (Negative); Specific Gravity,Urine 1.038 (1.002-1.035); Urobilinogen,Urine 4 or Greater mg/dL (Less than 2)
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
--- NOTE | 2018-03-07 17:50 | ECG ---
Date Performed: 03/07/2018 Time Performed: 05:17:56 PTAGE: 67 years EKG: Sinus rhythm WITH OCCASIONAL SUPRAVENTRICULAR PREMATURE COMPLEXES LEFT ANTERIOR FASCICULAR BLOCK POSSIBLE ANTERIO R MYOCARDIAL INFARCTION ABNORMAL ECG Since the PREVIOUS TRACING , no significant change noted PREVIOUS TRACIN01/05/2018 11.33 DOCTOR: Donnie Rojas Interpretating Date/Time 03/07/2018 17:48:52
--- NOTE | 2018-03-07 18:27 | P.PNADD ---
Addendum to Inpatient Note Reason for Addendum: Additional Documentation Additional information: Spoke with Dr. Duran and oncologist with the patient. Recommends prednisone 10 mg for patient daily as he might continue with chemotherapy. Discussed extensively with Dr. Duran patient condition and plan for treatment. We will continue to withhold his morphine, oxycodone for now. Patient reports pain is improved with just hydrocodone. Meet up with family daughter, . Patient was more awake and alert, periods of confusion but easily oriented. Patient states he feels a lot better after having a big bowel movement. Patient would need bowel regimen as this might have caused his delirium and increasing back pain. We will continue with current regimen of [place], bowel regimen, prednisone low dose. This has been discussed extensively with family members. Plan for discharge tomorrow to [facility] for rehabilitation. If patient improves they will consider chemotherapy. If continues to decline we will consider calling hospice for patient.
[2018-03-07] MEDS ORDERED: Methadone 10 MG Tablet PO SCH (21:00)
--- NOTE | 2018-03-08 08:47 | P.DS ---
Date of admission: 03/06/18 22:31 Primary care physician: UNKNOWN Attending physician on discharge: Donald Whitehead Anticipated date of discharge: 03/08/18 Brief History from admission: 67-year-old male with a history of metastatic prostate cancer who is brought in by family for 3 day history of progressively worsening altered mental status and generalized weakness. Patient says he just says that he is in the hospital , does not know the year or month. He is uncertain why he is here. No family at bedside at the time of my evaluation. History obtained from ER doctor documentation. Patient appears to be on gabapentin, narcotics however uncertain when these were the last started or given. Patient himself denies any pain, however upon moving appears to have severe back pain, consistent with past history of spinal metastases. DS: Diagnosis - Discharge Diagnosis (1) Altered mental status Status: Acute DS: Medications - Discharge Medications Prescriptions: hydrocodone-acetaminophen 1 tab PO Q4H PRN #18 tab PRN Reason: Acute Pain prednisone 10 mg PO DAILY #30 tab sennosides-docusate sodium [Senna Plus] 1 tab PO BID #60 tab DS: Summary Hospital Course: 67-year-old male with a history of metastatic prostate cancer who is brought in by family for 3 day history of progressively worsening altered mental status and generalized weakness. Patient has acute toxic encephalopathy, possibly secondary to polypharmacy patient is on morphine, oxycodone, and gabapentin at home secondary to metastatic prostate cancer. His CT of the brain with no acute findings. Gabapentin was held throughout his hospitalization. Suspect that this is secondary to gabapentin toxicity and also polypharmacy of oxycodone and morphine. Patient is started on hydrocodone which he is tolerating well. CT of the abdomen and pelvis for complaints of abdominal pain while hospitalized was done showed bony metastasis otherwise no acute process. Lumbar spine MRI showed 1. Widespread bony metastatic disease without pathologic fracture or retropulsion. 2. Broad-based disc bulge or mild protrusions at L3-4-5 with mild stenosis of the lateral recesses and neural foramina.3. Epidural lipomatosis at the lumbosacral junction with moderate effacement of the thecal sac. Dr. Duran, from the [place], oncologist of the patient has been contacted and have discussed extensively patient's condition and plan of care. Plan to continue pain management with just hydrocodone and will continue prednisone 10 mg as recommended by Dr. Duran. He will go to [facility] for rehabilitation and will follow up in his office in 1-2 weeks. If he improves, plan is for patient to have chemotherapy this is been discussed and explained by Dr. Duran with the patient's family. She has atrial fibrillation which is chronic and HTN, blood pressure medication atenolol was continued. There is no anticoagulation for his atrial fibrillation secondary to history of GI bleed, according to Dr. Duran this has been a complication of chemotherapy he also has blood clots but unable to take anticoagulants. He will continue to take his prednisone. Patient has significantly improve will need bowel regimen as part of the plan. His constipation might be contributing to increasing back pain. Patient has met maximal benefits of hospitalization. Clinically stable for discharge. - Time Spent with Patient Total time spent providing and/or coordinating discharge services: Greater than 30 minutes - Quality: VTE Deep Vein Thrombosis/Pulmonary Embolism Present on Admission: No Exam Vital signs: Vital Signs 03/07/18 12:00 03/07/18 15:35 03/07/18 20:00 Temperature 98.4 F 97.6 F 98.8 F Pulse Rate 64 67 71 Respiratory Rate 14 16 16 Blood Pressure 136/70 139/61 141/75 H Pulse Oximetry 96 95 97 03/08/18 00:00 03/08/18 04:00 Temperature 98.2 F 98.1 F Pulse Rate 64 60 Respiratory Rate 17 16 Blood Pressure 156/73 H 140/64 Pulse Oximetry 95 95 Intake & Output 03/07/18 03/08/18 03/08/18 18:59 06:59 18:59 Intake Total 1000 / 1000 Output Total 250 / 250 Balance 750 / 750 Intake: IV 1000 / 1000 NS Inj 1,000 ML @ 50 mls/hr IV. 1000 / 1000 CONT .Q20H [facility] Rx#:[id number] Output: Urine Amount (Catheter) 250 / 250 Straight 250 / 250 Other: # Voids 1 Date of Last Bowel Movement 03/07/18 # Bowel Movements 1 Narrative: GENERAL: This is a well-nourished, well-developed patient, in no apparent distress. SKIN: Warm and dry. HEENT: Normocephalic. Pupils equal round and reactive. Nose without bleeding. Airway patent. NECK: Trachea midline. Supple. CARDIOVASCULAR: Regular rate and rhythm without murmurs, gallops, or rubs. RESPIRATORY: Clear to auscultation. Breath sounds equal bilaterally. No wheezes , rales, or rhonchi. GASTROINTESTINAL: Abdomen soft. Bowel Sounds hypoactive. Tender to light palpation. MUSCULOSKELETAL: Extremities without clubbing, cyanosis, or edema. NEUROLOGICAL: Awake and alert. He entered to self, place. Occasional periods of confusion but easily reoriented. Moves all extremities. Normal speech. Results Procedures completed during hospitalization: None Labs on day of discharge: Labs from last 24 hours 03/07/18 12:30 Urine Color Yellow Urine Clarity Clear Urine pH 5.0 Ur Specific [place] 1.038 H Urine Protein 30 H Urine Glucose (UA) Negative Urine Ketones 20 Urine Occult Blood Negative Urine Nitrate Negative Urine Bilirubin Negative Urine Urobilinogen 4 or greater Ur Leukocyte Esterase Negative Urine RBC 1 Urine WBC 1 Urine Mucus Few H Micro UA Comment Culture not ind Urine Culture Comments Culture not ind - Impressions ITS Impressions Abdomen/Pelvis CT 03/06/18 17:57 CONCLUSION: 1. No acute findings within the abdomen compared with prior exam from January 05. 2. Numerous blastic bone metastases characteristic of prostate metastatic disease similar to prior exam. 3. Fatty liver with small cysts. Small splenic cyst anteriorly. 4. Numerous bilateral renal cysts, prominent on the left side stable. 5. No obstruction, free fluid or free air. 6. Severe coronary calcifications. Chest X-Ray 03/06/18 17:57 The [id number] tip is in the right atrium. Minimal basilar opacity most characteristic of atelectasis or scarring. No significant change from January 05. No significant effusion. No pneumothorax. Mild elevation right hemidiaphragm. CONCLUSION: Subsegmental basilar opacity most characteristic of atelectasis or scarring. No significant effusion. No pneumothorax. Head CT 03/06/18 17:57 CONCLUSION: 1. No acute intracranial abnormalities. Exam degraded by motion. . Lumbar Spine MRI 03/06/18 18:48 CONCLUSION: 1. Widespread bony metastatic disease without pathologic fracture or retropulsion. 2. Broad-based disc bulge or mild protrusions at L3-4-5 with mild stenosis of the lateral recesses and neural foramina. 3. Epidural lipomatosis at the lumbosacral junction with moderate effacement of the thecal sac. Discharge Plan - Discharge Disposition Patient Disposition: Discharge to SNF - Discharge Condition Condition: Stable - Discharge Order Discharge Orders: Discharge Order (Routine); Ordered 03/08/18 Ordered By: Alicia Fisher - Physicians Team Primary Care Provider: UNKNOWN, Attending Provider: Donald Whitehead Other Providers: Jessika Langley MD ; [facility]
[2018-03-08] MEDS ORDERED: predniSONE 10 MG Tablet PO SCH (09:00)
[2018-03-08] MEDS: hydrALAZINE 25 MG Tablet PO SCH ×2 (09:32→14:08)
[2018-03-08] MEDS: amLODIPine 10 MG Tablet PO SCH (09:32)
[2018-03-08] MEDS: Atenolol 50 MG Tablet PO SCH (09:35)
[2018-03-08] MEDS: Senna/Docusate Sodium 8.6/50 MG Tablet PO SCH (09:35)
[2018-03-08] MEDS: Ferrous Sulfate 325 MG Tablet PO SCH (09:36)
[2018-03-08 12:36] VITALS: PULSE 58
[2018-03-08] MEDS: Sod Chloride 0.9% Inj 1,000 ML IV.CONT SCH (16:56)
[2018-03-08 16:57] VITALS: BP 165/79; RESP 18; TEMP 98.1; O2SAT 96
== END 2018-03-08 19:10 ==
LOC: NEPGCP 17:34 → NEPC 17:34 → NEDA 22:30 → INTOOBSV 22:31 → NEPGCP 03-07 00:15
PROVIDERS: ADMIT Hospitalist; ATTEND Hospitalist